=== PATIENT | female | born 1940 | race Caucasian/White ===

== ENCOUNTER 2023-06-16 15:52 | Outpatient (REF) | payer MEDICARE, OTHER, SELFPAY ==
[2023-06-16 16:22] LABS: SARS-CoV-2 Ag NEGATIVE (NEGATIVE)
[2023-06-17 16:10] LABS: SARS-CoV-2 NAA NOT DETECTED (NOT DETECTE)
== END 2023-06-16 15:53 | disposition home or self-care (01) ==
LOC: LAB 15:52
PROVIDERS: PCP Internal Medicine; Visit Provider Internal Medicine
DX: Z20.822 Contact with and (suspected) exposure to COVID-19 (principal); R53.83 Other fatigue
CPT/HCPCS: 87635; 87811

== ENCOUNTER 2025-02-12 14:30 | Outpatient (OUT) | payer MEDICARE, OTHER, SELFPAY ==
--- OUTSIDE RECORDS SUMMARY | 2025-01-30 10:00 | XMS_ITS | Encounter Summary ---
Author Organization [facility] Address [address] [place] [address] Care Team Providers Care Tree Pruner Name Role Phone Alexandro Mendez Primary Care Provider [phone] Reason for Visit * Reason Comments Follow-up Encounter Details Date Type Department Care Team (Late st Contact Info) Description 01/30/2025 10:00 AM EDT Office Visit [facility] [address] [place] [phone] Cheko Lackey, [address] [place] [address] Presence of artificial knee joint, right (Primary Dx) Social History Tobacco Use Types Packs/Day Years Used Date Smoking Tobacco: Never Smokeless Tobacco: Never Alcohol Use Standard Drinks/Week Comments Never 0 (1 standard drink = 0.6 oz pure alcohol) Caffeine intake: more than 4 cups per day decaf coffee Comments No Sex and Gender Information Value Date Recorded Sex Assigned at Not on file Legal Sex Female 7:24 PM EDT Gender Identity Not on file Sexual Orientation Not on file documented as of this encounter Last Filed Vital Signs Vital Sign Reading Time Taken Comments Blood Pressure - - Pulse - - Temperature - - Respiratory Rate - - Oxygen Saturation - - Inhaled Oxygen Concentration - - Weight 69.4 kg (153 lb) 01/30/2025 10:53 AM EDT Height 160 cm (5' 3 ) 01/30/2025 10:53 AM EDT Body Mass Index 27.1 01/30/2025 10:53 AM EDT documented in this encounter Progress Notes * Cheko Lackey, DO - 01/30/2025 10:00 AM EDT Images from the original note were not included. @BRE@ Veronika Briseida Douglas is a 84 y.o. female who presents for Follow-up of the Right Knee HPI: History of Present Illness The patient is an 84-year-old female who presents today for follow-up on her right knee. She has a history of a right total knee arthroplasty on 07/07/2023. She reports that her knee is in good condition and she is able to kneel on it. However, she suspects the development of cellulitis in her leg over the past few days. The condition has not worsened, but she experiences pain upon touch and a burning sensation. She also notes that her leg appears swollen. She has been elevating her feet during sleep. She has previously reported leg soreness to her doctor. Over the past few months, she has been on antibiotics for various conditions including a urinary tract infection and ear infections. She reports no instances of diarrhea while on these antibiotics. SUBJECTIVE: MEDICATIONS: Current Outpatient Medications Medication Instructions alendronate (FOSAMAX) 70 mg, Oral, Every 7 days, Take in the morning with a full glass of water, che empty stomach, and do not take anything else by mouth or lie down for the next 30 min. calcium carbonate (Os-Juan) 1250 (500 Ca) MG chewable tablet calcium-vitamin D3-vitamin K (Viactiv) 500-500-40 MG-UNT-MCG chewable tablet 1 tablet, Daily ferrous fumarate-vitamin C ER (Radha-Sequeles 65-25) 1 tablet, 3 times daily with meals fluticasone (Flonase) 50 MCG/ACT nasal spray 1 spray, Each Nostril, Daily, Shake gently. Before first use, prime pump. After use, clean tip and replace cap. MULTIPLE VITAMIN PO pravastatin (PRAVACHOL) 20 mg, Daily sulfamethoxazole-trimethoprim (Bactrim DS) 800-160 MG per tablet 1 tablet, Oral, 2 times daily withmeals ALLERGIES: Allergies Allergen Reactions Cortisone Unknown Prednisone Rash and Unknown Triamcinolone Acetonide Rash SURGICAL HISTORY: Past Surgical History: Procedure Laterality Date BREAST LUMPECTOMY Left COLONOSCOPY x2 COLONOSCOPY 03/2021 DILATION AND CURETTAGE [place] TONSILLECTOMY & ADENOIDECTOMY AGE 10/> TOTAL KNEE ARTHROPLASTY Right 07/07/2023 Dr. Cheko Lackey [place] [facility] [place] FAMILY HISTORY: Family History Problem Relation Name Age of Onset Rectal cancer Mother Uterine cancer Sister Prostate cancer Other SOCIAL HISTORY: Social History Tobacco Use Smoking status: Never Smokeless tobacco: Never Vaping Use Vaping status: Never Used Substance Use Topics Alcohol use: Never Comment: Caffeine intake: more than 4 cups per day decaf coffee Drug use: Never Depression: Not on file REVIEW OF SYMPTOMS: Review of Systems The review of systems, history and current medications list are all reviewed today. OBJECTIVE: Visit Vitals Ht 5' 3 Wt 153 lb LMP (LMP Unknown) BMI 27.10 kg/m?? OB Status Postmenopausal Smoking Status Never BSA 1.76 m?? Physical Exam Alert and oriented, no acute distress. Mood and affect are appropriate. Ambulating independently. Gait is nonantalgic. Pitting edema at both legs, slight erythema lower aspect right leg. Right knee: healed incision. Full extension. No effusion. Knee flexion is to 115 degrees. No varus or valgus instability is observed. Patella is tracking appropriately. Knee extension and flexion strength is 5 out of 5. Ortho Exam Results Three views, bilateral PA weight-bearing/sunrise/lateral right knee, taken today and saved to the permanent medical record are reviewed. Prosthesis is unchanged in position and alignment. No signs ofprosthetic wear or loosening. No periprosthetic fractures. ASSESSMENT AND PLAN: I reviewed the history, physical exam, diagnostic studies, and diagnosis with the patient. Assessment & Plan 1. Right total knee arthroplasty status I reminded the patient of the need for lifelong prophylactic antibiotics prior to any dental procedures. 2. Suspected developing leg cellulitis: Bactrim 800 mg/160 mg twice a day for one week has been prescribed and sent to the pharmacy. If there is no improvement, she should consult with her PCP Dr. Mendez. Further evaluation of her circulation may be necessary, and a diuretic might be considered to reduce fluid retention. She has been on multiple antibiotics recently for urinary tract and ear infections, which raises the possibility that her symptoms may be related to circulation rather than cellulitis. She should monitor for any side effects such as diarrhea or yeast infections, which can occur with antibiotic use. Follow up prn. A total of 20 to 29 minutes was spent on this patient encounter which included chart review, check in, nurse triage, history taking, physical examination, diagnostic study review, patient counseling and discussion, entering information into the patient's medical record, and coordinating patient care Diagnoses and all orders for this visit: Presence of artificial knee joint, right - XR knee 3 views right - sulfamethoxazole-trimethoprim (Bactrim DS) 800-160 MG per tablet; Take 1 tablet by mouth in the morning and 1 tablet in the evening. Take with meals. Do all this for 7 days. Cheko Lackey D.O. Attestation This note was created using voice recognition through [employer]. documented in this encounter Plan of Treatment Upcoming Encounters Date Type Department Care Team (Late st Contact Info) Description 03/19/2025 9:20 AM EDT Office Visit [facility] [address] [place] [phone] Yanique Sidhu APRN-DEBUG TECHNICIAN [address] [place] [address] 04/18/2025 10:15 AM EDT Office Visit [facility] [address] [place] [phone] Morgan Mishra MD [address] [place] [address] documented as of this encounter Procedures Procedure Name Priority Date/Time Associated Diagnosis Comments XR KNEE 3 VIEWS RIGHT Routine 01/30/2025 10:46 AM EDT Presence of artificial knee joint, right documented in this encounter Results * XR knee 3 views right (01/30/2025 10:46 AM EDT) Anatomical Region Laterality Modality Lower Extremities, Knee Right [facility] Narrative 01/31/2025 7:59 PM EDT Imaging Result: Three views, bilateral PA weight-bearing/sunrise/lateral right knee, taken today and saved to the permanent medical record are reviewed. Prosthesis is unchanged in position and alignment. No signs of prosthetic wear or loosening. No periprosthetic fractures. Cheko Lackey DO IMG XR PROCEDURES Final Result documented in this encounter Visit Diagnoses Diagnosis Presence of artificial knee joint, right- Primary documented in this encounter Care Teams Tree Pruner Relationship Specialty Start Date End Date Alexandro Mendez DO PCP - General Internal Medicine 03/15/23 documented as of this encounter
--- OUTSIDE RECORDS SUMMARY | 2025-01-30 10:50 | XMS_ITS | Encounter Summary ---
Author Organization [facility] Address [address] [address] Care Team Providers Care Scrap Materials Buyer Name Role Phone Alexandro Mendez DO Primary Care Provider [phone] Encounter Details Date Type Department Care Team (Late st Contact Info) Description 01/30/2025 10:50 AM EDT Ancillary Procedure [facility] [address] [place] [address] Social History Tobacco Use Types Packs/Day Years [...] on file documented as of this encounter Plan of Treatment Upcoming Encounters Date Type Department Care Team (Late st Contact Info) Description 03/19/2025 9:20 AM EDT Office Visit [facility] [address] [place] [address] Yanique Sidhu, SUPERINTENDENT PIER-BIOMASS PLANT MANAGER [address] [place] [address] 04/18/2025 10:15 AM EDT Office Visit [facility] [address] [place] [address] Morgan Mishra MD [address] [place] [address] documented as of this encounter Procedures Procedure Name Priority Date/Time Associated Diagnosis Comments XR KNEE 3 VIEWS RIGHT Routine 01/30/2025 10:46 AM EDT Presence of artificial knee joint, right documented in this encounter Results * XR knee 3 views right (01/30/2025 10:46 AM EDT) Anatomical Region Laterality Modality Lower Extremities, Knee Right [facility] Imaging Narrative 01/31/2025 7:59 PM EDT Imaging Result: Three views, bilateral PA weight-bearing/sunrise/lateral right knee, taken today and saved to the permanent medical record are reviewed. Prosthesis is unchanged in position and alignment. No signs of prosthetic wear or loosening. No periprosthetic fractures. Cheko Lackey DO IMG XR PROCEDURES Final Result documented in this encounter Visit Diagnoses Not on filedocumented in this encounter Care Teams Scrap Materials Buyer Relationship Specialty Start Date End Date Alexandro Mendez DO PCP - General Internal Medicine 03/15/23 documented as of this encounter
--- OUTSIDE RECORDS SUMMARY | 2025-02-12 14:36 | XMS_ITS | Encounter Summary ---
Author Organization [facility] Address [address] [place] [address] Care Team Providers Care Building Construction Superintendent Name Role Phone Alexandro Mendez Primary Care Provider Encounter Details Date Type Department Care Team (Late st Contact Info) Description 04/22/2023 Orders Only [facility] [address] [address] Cheko Lackey DO [address] [place], [place] [id number] Primary osteoarthritis of right knee (Primary Dx) Social History Tobacco Use Types Packs/Day Years Used Date Smoking Tobacco: Never Smokeless Tobacco: Never Alcohol Use Standard Drinks/Week Comments Never 0 (1 standard drink = 0.6 oz pure alcohol) Caffeine intake: more than 4 cups per day decaf coffee Comments Unknown Sex and Gender Information Value Date Recorded [...] Dermatology [address] [place] [phone] Yanique Sidhu, PROFESSOR OF BIOLOGICAL SCIENCES-SURGICAL TECHNICIAN [address] [place] [address] 04/18/2025 10:15 AM EDT Office Visit [facility] [address] [place] [address] Morgan Mishra MD [address] [place] [address] documented as of this encounter Visit Diagnoses Diagnosis Primary osteoarthritis of right knee- Primary documented in this encounter Care Teams Building Construction Superintendent Relationship Specialty Start Date End Date Alexandro Mendez DO PCP - General Internal Medicine 03/15/23 documented as of this encounter
--- OUTSIDE RECORDS SUMMARY | 2025-02-12 14:36 | XMS_ITS | Encounter Summary ---
Author Organization [facility] Address [address] [place] [address] Care Team Providers Care Hand Paint Mixer Name Role Phone Alexandro Mendez DO Primary Care Provider [phone] Encounter Details Date Type Department Care Team (Late st Contact Info) Description 05/03/2023 Clinisync Result Encounter [facility] External Department Unsolicited Cheko Lackey DO [address] [place] [address] Social History Tobacco Use Types Packs/Day Years [...] Dermatology [address] [place] [phone] Yanique Sidhu APRN-FISCAL ACCOUNTANT [address] [place] [address] 04/18/2025 10:15 AM EDT Office Visit [facility] [address] [place] [address] Morgan Mishra MD [address] [place] [address] documented as of this encounter Procedures Procedure Name Priority Date/Time Associated Diagnosis Comments CT LOWER EXTREMITY W/O CONTRAST RIGHT 05/03/2023 9:37 AM EDT documented in this encounter Results * CT LOWER EXTREMITY W/O CONTRAST RIGHT (05/03/2023 9:37 AM EDT) Anatomical Region Laterality Modality Other 05/03/2023 9:37 AM EDT Narrative 05/04/2023 8:33 AM EDT Exam Date/Time: 05/03/2023 09:45 EDT Reason for Exam: OA RIGHT KNEE Report IMPRESSION: CT FOR KNEE PROSTHESIS CREATION. 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 EXAM: CT Lower Extremity w/o Contrast Right DATE: 05/03/2023 9:37 AM CLINICAL HISTORY: OA RIGHT KNEE. COMPARISON: None available. TECHNIQUE: Spiral unenhanced imaging was obtained of the right lower extremity for prosthesis creation, using Marv protocol. All CT scans at this facility use dose modulation, iterative reconstruction, and/or weight based dosing when appropriate to reduce radiation dose to as low as reasonably achievable. FINDINGS: Moderately extensive osteoarthritic changes are present in the, predominantly medial compartment. A moderate-sized low density joint effusion and 2 to 3 cm Houston's cyst are present. There is no fracture, dislocation, worrisome bone destruction, radiodense foreign bodies, or other findings of concern identified. Additional imaging of the remaining colon and hip are noncontributory Ordering Provider: Cheko Lackey FINAL REPORT Dictated: 05/04/2023 8:30 am Cameron Abbott MD Signed (Electronic Signature): 05/04/2023 8:30 am Signed by: Cameron Abbott MD Transcribed by: JOSE ARMANDO Technologist: MAXWELL Procedure Note Radiology, Radiologist, - 05/04/2023 Exam Date/Time: 05/03/2023 09:45 EDT Reason for Exam: OA RIGHT KNEE Report IMPRESSION: CT FOR KNEE PROSTHESIS CREATION. 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 EXAM: CT Lower Extremity w/o Contrast Right DATE: 05/03/2023 9:37 AM CLINICAL HISTORY: OA RIGHT KNEE. COMPARISON: None available. TECHNIQUE: Spiral unenhanced imaging was obtained of the right lowerextremity for prosthesis creation, using Marv protocol. All CT scans at this facility use dose modulation, iterativereconstruction, and/or weight based dosing when appropriate to reduce radiation dose to as low asreasonably achievable. FINDINGS: Moderately extensive osteoarthritic changes are present in the,predominantly medial compartment. A moderate-sized low density joint effusion and 2 to 3 cmBaker's cyst are present. There is no fracture, dislocation, worrisome bone destruction, radiodenseforeign bodies, or other findings of concern identified. Additional imaging of the remaining colon and hip are noncontributory Ordering Provider: Cheko Lackey FINAL REPORT Dictated: 05/04/2023 8:30 am Cameron Abbott MD Signed (Electronic Signature): 05/04/2023 8:30 am Signed by: Cameron Abbott MD Transcribed by: JOSE ARMANDO Technologist: MAXWELL Cheko Lackey DO [facility] Final Result documented in this encounter Visit Diagnoses Not on filedocumented in this encounter Care Teams Hand Paint Mixer Relationship Specialty Start Date End Date Alexandro Mendez DO PCP - General Internal Medicine 03/15/23 documented as of this encounter
--- OUTSIDE RECORDS SUMMARY | 2025-02-12 14:36 | XMS_ITS | Encounter Summary ---
Author Organization [facility] Address [address] [facility] [place] [address] Care Team Providers Care Complaint Operator Name Role Phone Alexandro Mendez DO Primary Care Provider [phone] Encounter Details Date Type Department Care Team (Late st Contact Info) Description 03/15/2023 Abstract [facility] [address] [place] [address] Morgan Mishra MD [address] [place] [address] Social History Tobacco Use Types Packs/Day Years [...] Office Visit [facility] [address] [place] [address] Yanique Sidhu APRN-AMBIKA [address] [place] [address] 04/18/2025 10:15 AM EDT Office Visit [facility] [place] [facility] [address] [place] [address] Morgan Mishra MD [address] [place] [address] documented as of this encounter Visit Diagnoses Not on filedocumented in this encounter Care Teams Complaint Operator Relationship Specialty Start Date End Date Alexandro Mendez DO PCP - General Internal Medicine 03/15/23 documented as of this encounter
--- OUTSIDE RECORDS SUMMARY | 2025-02-12 14:36 | XMS_ITS | Clinical Summary ---
Author Organization [facility] Address [address] [place] [address] Phone Care Team Providers Care Can Labeler Name Role Phone Alexandro Mendez Primary Care Provider [phone] Social History Tobacco Use Types Packs/Day Years Used Date Smoking Tobacco: Never Assessed Comments Unknown Sex and Gender Information Value Date Recorded Sex Assigned at Not on file Legal Sex Female 11:03 AM EST Gender Identity Not on file Sexual Orientation Not on file Plan of Treatment Health Maintenance Due Date Last Done Comments Lipid Panel 1940 Medicare Annual Wellness Vis it (AWV) 1940 DTaP/Tdap/Td Vaccines (1 - Tdap) 1960 Pneumococcal Vaccine (1 of 1 - PCV) 1988 Zoster Vaccines (1 of 2) 1988 Bone Density Scan 11/26/2003 RSV High Risk: (Elderly (60+ ) or Population) (1 - 1-dose 75+ series) 2013 COVID-19 Vaccine ( - 2023-2 5 season) 2024 Influenza Vaccine (#1) 2025 HIB Vaccines Aged Out No longer eligi ble based on patient's age to complete this topic HPV Vaccines Aged Out No longer eligi ble based on patient's age to complete this topic Hepatitis A Vaccines Aged Out No long er eligible based on patient's age to complete this topic Hepatitis B Vaccines Aged Out No long er eligible based on patient's age to complete this topic IPV Vaccines Aged Out No longer eligi ble based on patient's age to complete this topic Meningococcal Vaccine Aged Out No linda mike eligible based on patient's age to complete this topic Rotavirus Vaccines Aged Out No longer eligible based on patient's age to complete this topic Insurance MEDICARE PART A AND B Care Teams Can Labeler Relationship Specialty Start Date End Date Alexandro Mendez DO PCP - General 02/02/18
--- OUTSIDE RECORDS SUMMARY | 2025-02-12 14:36 | XMS_ITS | Encounter Summary ---
Author Organization [facility] Address [address] [place] [address] Care Team Providers Care Supervisor Farm Equipment Maintenance Name Role Phone Alexandro Mendez Primary Care Provider [phone] Encounter Details Date Type Department Care Team (Late st Contact Info) Description 04/20/2023 Abstract [facility] [address] [place] [phone] Cheko Lackey DO [address] [place] [address] Social History Tobacco Use Types Packs/Day Years [...] Dermatology [address] [place] [phone] Yanique Sidhu APRN-SUPERVISOR FIBERGLASS BOAT ASSEMBLY [address] [place] [address] 04/18/2025 10:15 AM EDT Office Visit [facility] [address] [place] [address] Morgan Mishra MD [address] [place] [address] documented as of this encounter Visit Diagnoses Not on filedocumented in this encounter Care Teams Supervisor Farm Equipment Maintenance Relationship Specialty Start Date End Date Alexandro Mendez DO PCP - General Internal Medicine 03/15/23 documented as of this encounter
--- OUTSIDE RECORDS SUMMARY | 2025-02-12 14:37 | XMS_ITS | Clinical Summary ---
Author Organization [facility] Address [address] [place] [address] Care Team Providers Care Grades 9 12 Tutor Name Role Phone Alexandro Mendez Chante DUMONT Primary Care Provider [phone] Allergies Active Allergy Reactions Criticality Noted Date Comments Prednisone Rash 05/13/2012 Medications CALCIUM CARBONATE/VITAMI N D3 (CALCIUM + D ORAL) Take 1 tablet by mouth once daily. Active MULTI-VITAMIN ORAL Take 1 tablet by mouth once daily. Active pravastatin 20 mg tablet Take 20 mg by mouth once daily. Active Active Problems Problem Noted Date Diagnosed Date Bilateral temporomandibular joint pain 8 Bilateral impacted cerumen 03/22/2018 Malignant neoplasm of upper- outer quadrant of left breast in female, estrogen receptor positive 10/22/2017 Resolved Problems Problem Noted Date Diagnosed Date Resolved Date Breast CA 05/09/2012 10/22/2017 Overview (05/09/2012): Left; Stage I, ER+ Family History Medical History Relation Comments Breast Cancer Maternal Grandmother Diabetes Maternal Grandmother Cancer Mother Cancer Sister 4 Relation Status Comments Father Maternal Grandmother Mother Sister 1 Alive Sister 2 Alive Sister 3 Alive Sister 4 Social History Tobacco Use Types Packs/Day Years Used Date Smoking Tobacco: Never Smokeless Tobacco: Never Alcohol Use Standard Drinks/Week Comments No 0 (1 standard drink = 0.6 oz pur e alcohol) Area Deprivation Index Answer Date Reji rded National Score (1-100), lower number is lower ri sk Not on file 06/12/2020 State Score (1-10), lower number is lower risk N ot on file 06/12/2020 Data from: https://www.neighborhoodatlas.medicine.[facility]/. Last address used for calculation Not on file 06/12/2020 Comments No Sex and Gender Information Value Date Recorded Sex Assigned at Not on file Legal Sex Female 10:12 AM EST Gender Identity Not on file Sexual Orientation Not on file Last Filed Vital Signs Vital Sign Reading Time Taken Comments Blood Pressure 125/69 10/22/2017 11:44 AM EDT Pulse 74 10/22/2017 11:44 AM EDT Temperature 36.8 C (98.2 F) 03/22/2018 8:40 AM EDT Respiratory Rate 18 10/22/2017 11:44 AM EDT Oxygen Saturation 99% 10/22/2017 11:44 AM EDT Inhaled Oxygen Concentration - - Weight 78.7 kg (173 lb 9.6 oz) 10/22/2017 11:44 AM EDT Height 161.3 cm (5' 3.5 ) 10/22/2017 11:44 AM ED T Body Mass Index 30.27 10/22/2017 11:44 AM EDT Plan of Treatment Health Maintenance Due Date Last Done Comments Anxiety Screening 1958 Depression Screening 1958 DTaP,Tdap,Td Vaccine (1 - Tdap) 1957 Diabetes Screening 11/26/1983 Shingrix Vaccine (1 of 2) 1988 Bone Density Screening 11/26/2003 RSV Vaccine (1 - 1-dose 75+ series) 2013 Pneumococcal Vaccine: 50+ (2 of 2 - PPSV23) 05/05/2018 05/05/2017 Advance Directive Discussion 07/05/2024 Influenza Vaccine (#1) 2025 [place] [address] [facility] Care Teams Grades 9 12 Tutor Relationship Specialty Start Date End Date Alexandro Mendez DO PCP - General Internal Medicine 05/13/12
--- OUTSIDE RECORDS SUMMARY | 2025-02-12 14:37 | XMS_ITS | Encounter Summary ---
Author Organization [facility] Address [address] [place] [address] Care Team Providers Care Clinical Informaticist Name Role Phone Alexandro Mendez Primary Care Provider [phone] Encounter Details Date Type Department Care Team (Late st Contact Info) Description 07/09/2023 Abstract [facility] [address] [place] [phone] Cheko Lackey DO [address] [place] [address] Social History Tobacco Use Types Packs/Day Years [...] [address] [place] [phone] Yanique Sidhu APRN-HOUSE REPAIRER [address] [place] [address] 04/18/2025 10:15 AM EDT Office Visit [facility] [address] [place] [address] Morgan Mishra MD [address] [place] [address] documented as of this encounter Visit Diagnoses Not on filedocumented in this encounter Care Teams Clinical Informaticist Relationship Specialty Start Date End Date Alexandro Mendez DO PCP - General Internal Medicine 03/15/23 documented as of this encounter
--- OUTSIDE RECORDS SUMMARY | 2025-02-12 14:37 | XMS_ITS | Encounter Summary ---
Author Organization [facility] Address [address] [place] [address] Care Team Providers Care Green Chain Puller Name Role Phone Alexandro Mendez Primary Care Provider [phone] Encounter Details Date Type Department Care Team (Late st Contact Info) Description 11/27/2022 Abstract [facility] [address] [place] [phone] Cheko Lackey DO [address] [place] [address] Social History Tobacco Use Types Packs/Day Years Used Date Smoking Tobacco: Never Assessed Alcohol Use Standard Drinks/Week Comments Not Asked 0 (1 standard drink = 0.6 oz [...] [address] [place] [phone] Yanique Sidhu APRN-DESIGN STUDIO CONSULTANT [address] [place] [address] 04/18/2025 10:15 AM EDT Office Visit [facility] [place] [facility] [address] [place] [address] Morgan Mishra MD [address] [place] [address] documented as of this encounter Visit Diagnoses Not on filedocumented in this encounter Care Teams Green Chain Puller Relationship Specialty Start Date End Date Alexandro Mendez DO PCP - General Internal Medicine 03/15/23 documented as of this encounter
--- OUTSIDE RECORDS SUMMARY | 2025-02-12 14:37 | XMS_ITS | Encounter Summary ---
Author Organization [facility] Address [address] [place] [address] Care Team Providers Care Automatic Toe Laster Name Role Phone Alexandro Mendez DO Primary Care Provider [phone] Encounter Details Date Type Department Care Team (Late st Contact Info) Description 07/31/2023 Abstract [facility] [address] [place] [address] Angela Choudhury, ROBIN [address] [place] [address] Social History Tobacco Use Types Packs/Day Years [...] Dermatology [address] [place] [address] Yanique Sidhu, NADEEM-INFECTION CONTROL COORDINATOR [address] [place] [address] 04/18/2025 10:15 AM EDT Office Visit [facility] [address] [place] [address] Morgan Mishra MD [address] [facility] [address] [place] [address] documented as of this encounter Visit Diagnoses Not on filedocumented in this encounter Care Teams Automatic Toe Laster Relationship Specialty Start Date End Date Alexandro Mendez DO PCP - General Internal Medicine 03/15/23 documented as of this encounter
--- OUTSIDE RECORDS SUMMARY | 2025-02-12 14:37 | XMS_ITS | Clinical Summary ---
Author Organization [facility] Address [address] [place] [address] Care Team Providers Care Save All Operator Name Role Phone Unavailable Primary Care Provider Unavailabl e Social History Tobacco Use Types Packs/Day Years Used Date Smoking Tobacco: Never Assessed [place] Safety & Environment Answer Date Rec orded Fear of Current or Ex-Partner Not on file Emotionally Abused Not on file 08/26/2023 Physically Abused Not on file 08/26/2023 Sexually Abused Not on file 08/26/2023 Physically or Sexually Abused Not on file Comments Unknown Sex and Gender Information Value Date Recorded Sex Assigned at Not on file Legal Sex Female 12:05 AM EDT Gender Identity Not on file Sexual Orientation Not on file Plan of Treatment Not on file
--- OUTSIDE RECORDS SUMMARY | 2025-02-12 14:37 | XMS_ITS | Clinical Summary ---
Author Organization [facility] Address [address] [place] [address] Care Team Providers Care Network Diagnostic Support Specialist Name Role Phone Alexandro Mendez DO Primary Care Provider [phone] Allergies Active Allergy Reactions Criticality Noted Date Comments Cortisone Unknown 12/01/2022 Prednisone Rash,Unknown Low 05/13/2012 Triamcinolone Acetonide Rash Low 12/01/2022 Medications calcium-vitamin D3-vitamin K (Viactiv) 500-500-40 MG-UNT-MCG chewable tablet Chew 1 tablet Daily Active pravastatin (Pravachol) 20 MG tablet Take 20 mg by mouth Daily Active MULTIPLE VITAMIN PO Active calcium carbonate (Os-Juan) 1250 (500 Ca) MG chewable tablet 4 Active ferrous fumarate-vitami n C ER (Radha-Sequeles 65-25) Take 1 tablet by mouth in the morning and 1 tablet at noon and 1 tablet in the evening. Take with meals. Do not crush, chew, or split. Active alendronate (Fosamax) 70 MG tabletIndicatio ns:Osteoporosis , post-menopausal Take 1 tablet (70 mg) by mouth every 7 (seven) days Take in the morning with a full glass of water, on an empty stomach, and do not take anything else by mouth or lie down for the next 30 min. 4 tablet 11 5 08/03/19 26 Active fluticasone (Flonase) 50 MCG/ACT nasal sprayIndication s:Left ear pain Administer 1 spray into each nostril Daily Shake gently. Before first use, prime pump. After use, clean tip and replace cap. 16 g Active sulfamethoxazol e-trimethoprim (Bactrim DS) 800-160 MG per tabletIndicatio ns:Presence of artificial knee joint, right Take 1 tablet by mouth in the morning and 1 tablet in the evening. Take with meals. Do all this for 7 days. 20 tablet 02/07/20 25 Active Problems Problem Noted Date Diagnosed Date Age related osteoporosis 11/28/2022 Primary osteoarthritis of right knee 11/28/2022 Encounters Date Type Department Care Team Description 01/30/2025 10:50 AM EDT Ancillary Procedure [facility] [address] [place] [address] 01/30/2025 10:00 AM EDT Office Visit [facility] [place] [facility] [address] [place] [address] Cheko Lackey DO Presence of artificial knee joint, right (Primary Dx) 01/30/2025 Bamboo flowsheet [facility] [place] [facility] [address] [place] [address] Cheko Lackey DO 01/30/2025 Travel 01/16/2025 4:25 PM EDT Office Visit [facility] [address] [place] [address] Angela Choudhury, MUNITIONS HANDLER Pressure sensation in both ears (Primary Dx); Bilateral impacted cerumen 01/16/2025 Travel from Last 3 Months Immunizations Immunization Administration Dates Next Due Moderna SARS-CoV-2 50mcg/0.5mL Booster 3 Pneumococcal Conjugate PCV 13 04/10/2016 Zoster, live 03/05/2015 Family History Medical History Relation Name Comments Rectal cancer Mother Prostate cancer Other Uterine cancer Sister Relation Name Status Comments Mother Other spouse Sister Social History Tobacco Use Types Packs/Day Years Used Date Smoking Tobacco: Never Smokeless Tobacco: Never Tobacco Cessation:Counseling Given: Not Answered Alcohol Use Standard Drinks/Week Comments Never 0 [...] Sign Reading Time Taken Comments Blood Pressure 134/62 01/16/2025 4:31 PM EDT Pulse 66 01/16/2025 4:31 PM EDT Temperature 36.4 C (97.6 F) 01/16/2025 4:31 PM EDT Respiratory Rate 20 01/16/2025 4:31 PM EDT Oxygen Saturation 96% 01/16/2025 4:31 PM EDT Inhaled Oxygen Concentration - - Weight 69.4 kg (153 lb) 01/30/2025 10:53 AM EDT Height 160 cm (5' 3 ) 01/30/2025 10:53 AM EDT Body Mass Index 27.1 01/30/2025 10:53 AM EDT Plan of Treatment Upcoming Encounters Date Type Department Care Team (Late st Contact Info) Description 03/19/2025 9:20 AM EDT Office Visit [facility] [address] [place] [address] Yanique Sidhu APRN-SUBSTATION MANAGER [address] [place] [address] 04/18/2025 10:15 AM EDT Office Visit [facility] [address] [place] [address] Morgan Mishra MD [address] [place] [address] Health Maintenance Due Date Last Done Comments Pneumococcal Vaccine: 65+ Ye ars (2 of 2 - PPSV23) 04/10/2017 04/10/2016 Influenza Vaccine (#1) 2025 4, 04/08/2022, 04/19/2018, Additional history exists Procedures Procedure Name Priority Date/Time Associated Diagnosis Comments XR KNEE 3 VIEWS RIGHT Routine 01/30/2025 10:46 AM EDT Presence of artificial knee joint, right from Last 3 Months Results * XR knee 3 views right (01/30/2025 10:46 AM EDT) Anatomical Region Laterality Modality Lower Extremities, Knee Right [facility] Narrative 01/31/2025 7:59 PM EDT Imaging Result: Three views, bilateral PA weight-bearing/sunrise/lateral right knee, taken today and saved to the permanent medical record are reviewed. Prosthesis is unchanged in position and alignment. No signs of prosthetic wear or loosening. No periprosthetic fractures. Cheko Lackey DO IMG XR PROCEDURES Final Result from Last 3 Months Insurance MEDICARE [facility] Care Teams Network Diagnostic Support Specialist Relationship Specialty Start Date End Date Alexandro Mendez DO PCP - General Internal Medicine 03/15/23
--- OUTSIDE RECORDS SUMMARY | 2025-02-12 14:37 | XMS_ITS | Encounter Summary ---
Author Organization [facility] Address [address] [place] [address] Care Team Providers Care Business Analytics Intern Name Role Phone Alexandro Mendez Primary Care Provider [phone] Encounter Details Date Type Department Care Team (Late st Contact Info) Description 01/30/2025 Bamboo flowsheet [facility] [address] [place] [address] Cheko Lackey, [address] [place] [address] Social History Tobacco Use Types Packs/Day Years [...] Office Visit [facility] [address] [place] [address] Yanique Sidhu, AIR TESTER-DELICATESSEN STORE MANAGER [address] [place], [place] [address] 04/18/2025 10:15 AM EDT Office Visit [facility] [place] [facility] [address] [place] [address] Morgan Mishra MD [address] [place] [address] documented as of this encounter Visit Diagnoses Not on filedocumented in this encounter Care Teams Business Analytics Intern Relationship Specialty Start Date End Date Alexandro Mendez DO PCP - General Internal Medicine 03/15/23 documented as of this encounter
--- OUTSIDE RECORDS SUMMARY | 2025-02-12 14:37 | XMS_ITS | Encounter Summary ---
Author Organization [facility] Address [address] [place] [address] Care Team Providers Care Ux Research Associate Name Role Phone Alexandro Mendez DO Primary Care Provider Encounter Details Date Type Department Care Team (Latest Contact Info) Description 01/30/2025 Travel Social History Tobacco Use Types Packs/Day Years [...] [address] [place] [address] Yanique Sidhu, CANDY DIPPER HAND-J2EE ARCHITECT [address] [place] [address] 04/18/2025 10:15 AM EDT Office Visit [facility] [address] [place] [address] Morgan Mishra MD [address] [place] [address] documented as of this encounter Visit Diagnoses Not on filedocumented in this encounter Care Teams Ux Research Associate Relationship Specialty Start Date End Date Alexandro Mendez DO PCP - General Internal Medicine 03/15/23 documented as of this encounter
--- OUTSIDE RECORDS SUMMARY | 2025-02-12 14:37 | XMS_ITS | Encounter Summary ---
Author Organization [facility] Address [address] [place] [address] Care Team Providers Care Patternmaker Bench Name Role Phone Alexandro Mendez DO Primary Care Provider [phone] Encounter Details Date Type Department Care Team (Late st Contact Info) Description 07/07/2023 Clinisync Result Encounter [facility] External Department Unsolicited Cheko Lackey DO [address] [place] [address] Social History Tobacco Use Types Packs/Day Years [...] Dermatology [address] [place] [address] Yanique Sidhu APRN-SALES SERVICE PROMOTER [address] [place], [place] [address] 04/18/2025 10:15 AM EDT Office Visit [facility] [address] [place] [address] Morgan Mishra MD [address] [facility] [address] [place] [address] documented as of this encounter Procedures Procedure Name Priority Date/Time Associated Diagnosis Comments XR KNEE 1 OR 2 VIEWS RIGHT 07/07/2023 9:25 AM EST documented in this encounter Results * XR KNEE 1 OR 2 VIEWS RIGHT (07/07/2023 9:25 AM EST) Anatomical Region Laterality Modality Other 07/07/2023 9:25 AM EST Narrative 07/07/2023 1:03 PM EST Exam Date/Time: 07/07/2023 09:38 EST Reason for Exam: Post-op evaluation;Other (please specify) Report IMPRESSION: NEGATIVE POSTOPERATIVE RIGHT KNEE. CLINICAL HISTORY: Post-op evaluation COMPARISON: April 20, 2023. FINDINGS: 2 views of the right knee shows interval placement of bipolar noncemented right knee replacement. No fracture. No abnormal lucency bone prosthetic interface. Ordering Provider: Cheko Lackey FINAL REPORT Dictated: 07/07/2023 1:00 pm Alexandro Hurst MD Signed (Electronic Signature): 07/07/2023 1:00 pm Signed by: Alexandro Hurst MD Transcribed by: JOSE ARMANDO Technologist: DANNA Technical Comments Radiation Dose: Ka,r in mGy = . DAP = . Procedure Note Radiology, Radiologist, MD - 07/07/2023 Exam Date/Time: 07/07/2023 09:38 EST Reason for Exam: Post-op evaluation;Other (please specify) Report IMPRESSION: NEGATIVE POSTOPERATIVE RIGHT KNEE. CLINICAL HISTORY: Post-op evaluation COMPARISON: April 20, 2023. FINDINGS: 2 views of the right knee shows interval placement of bipolarnoncemented right knee replacement. No fracture. No abnormal lucency bone prostheticinterface. Ordering Provider: Cheko Lackey FINAL REPORT Dictated: 07/07/2023 1:00 pm SignAlexandro david MD Signed (Electronic Signature): 07/07/2023 1:00 pm Signed by: Alexandro Hurst MD Transcribed by: JOSE ARMANDO Technologist: DANNA Technical Comments Radiation Dose: Ka,r in mGy = . DAP = . us Cheko Lackey DO [facility] Final Result documented in this encounter Visit Diagnoses Not on filedocumented in this encounter Care Teams Patternmaker Bench Relationship Specialty Start Date End Date Alexandro Mendez DO PCP - General Internal Medicine 03/15/23 documented as of this encounter
== END 2025-02-12 14:31 | disposition home or self-care (01) ==
LOC: RAD 14:35
PROVIDERS: PCP Internal Medicine; Visit Provider Internal Medicine
DX: M79.661 Pain in right lower leg (principal); M79.89 Other specified soft tissue disorders
CPT/HCPCS: 93971

== ENCOUNTER 2025-02-14 10:49 | Outpatient (OUT) | payer MEDICARE, OTHER, SELFPAY ==
--- OUTSIDE RECORDS SUMMARY | 2025-02-12 10:22 | XMS_ITS | Continuity of Care Document ---
Author Organization [facility] Address [address] [place] [address] Phone Care Team Providers Care Hat Brusher Machine Name Role Phone Alexandro Mendez DO Primary Care Provider Lauren Ramos MD Attending Provider Alexandro Mendez DO Attending Provider Care Teams Patient Care Team Team Status: Active Member Role Status Dates Alexandro Mendez DO Primary Care Provider Active Visit Care Team Team Status: Inactive Member Role Status Dates Alexandro Mendez DO Primary Care Provider Active Start: January 19, 2025 End: January 19, 2025 Lauren Ramos MD Attending Provider Active St art: January 19, 2025 End: January 19, 2025 Patient Care Team Team Status: Inactive Member Role Status Dates Alexandro Mendez DO Primary Care Provider Active Start: February 12, 2025 End: February 12, 2025 Alexandro Mendez DO Attending Provider Active Sta rt: February 12, 2025 End: February 12, 2025 Chief Complaint and Reason for Visit Chief Complaint Admit Date UA:Burning/Frequency January 19, 2025 2:2 9pm leg pain February 12, 2025 1: 46pm Reason for Visit Admit Date UTI (urinary tract infection) January 19, 2025 2:29pm Cellulitis of leg, right February 12 1:46pm Pain and swelling of right lower leg Feb us2024 1:46pm Varicose veins of both lower extremities February 12, 2025 1:46pm Hx of total knee arthroplasty February 1:46pm Allergies, Adverse Reactions, Alerts Allergen Type Severity Reaction Last Updated Verified Status prednisone Allergy Unknown Rash February 12, 2025 1:47pm Yes Active Social History Smoking Status Unknown if ever smoked Observation Status Observation Response Date of Response Legal Sex Female (finding) Sex Assigned At Female 1940 Problems Active Problems Medical Problem Onset Date Status UTI (urinary tract infection) Unknown Ac tive Cellulitis of leg, right Unknown Active Primary osteoarthritis of right knee Unknown Active H/O malignant neoplasm of breast Unknown Active Carotid artery stenosis Unknown Active Osteoarthritis of left hip Unknown Activ e Eosinophilia Unknown Active Hypercholesterolemia Unknown Active Overweight Unknown Active Cervical spondylosis Unknown Active Varicose veins of both lower extremities Unknown Active Pain and swelling of right lower leg Unknown Active Chronic venous insufficiency Unknown Act leeanna SNHL (sensorineural hearing loss) Unknown Active Medications Medication Status Dose Units Route Directions Qty Days St art Date Stop Date End Date Instructions Adherence Pravastatin 20 mg tablet Active 20 MG PO Every evening 2024 5:04pm Complies with drug therapy Alendronate 70 mg tablet Active MG PO October 05, 2024 12:00a m Complies with drug therapy Lidocaine 5 % adhesive patch,medic ated Active 2 PATCH TOPICA L Daily January 21, 2024 12:00a m leave on most painful area for up to 12 hrs Complies with drug therapy Sulfamethox azole-Trime thoprim 800-160 mg tablet Discont inued 1 TAB PO Twice daily January 19, 2025 12:00a m Augus t 2024 1:47p m Cephalexin 500 mg capsule Active 500 MG PO Three times daily 22 01February 12, 2025 12:00a m Complies with drug therapy Pravastatin 20 mg tablet Discont inued 20 MG PO Every evening September 28, 2023 12:00a m Julua ry 2024 5:04p m Calcium Carbonate (Calcium 500) 500 mg calcium (1,250 mg) tablet,chew able Active 500 MG PO Daily October 05, 2023 12:00a m Complies with drug therapy Neomycin-Po lymyxin-Hc 3.5-10,000- 1 mg/mL-unit/ mL-% drops,suspe nsion Active 4 DROPS OTIC Every 8 hours 04 10October 18, 2024 12:00a m Complies with drug therapy Cephalexin 500 mg capsule Discont inued 500 MG PO Three times daily 21 7 October 18, 2024 12:00a m November 06, 2024 8:55a m Immunizations Immunization Event Date Not Given Reason Dose Number Public Health Informatician Lot Number Vaccine Information Statement (VIS) Detail Administration Location Fluzone TIV High-Dose [id number] May 04, 2024 [id number] [facility] influenza, unspecified formulation April 14, 2023 Relevant Diagnostic Tests and/or Laboratory Data Laboratory Results Test Collection Date/Time Result Date/Time Result Interpretation Reference Range Result Comment Performing Site Urine Color January 19, 2025 2:35pm January 19, 2025 2:38pm yellow Urine Appearance January 19, 2025 2:35pm January 19, 2025 2:38pm cloudy Urine Specific [place] January 19, 2025 2:35pm January 19, 2025 2:38pm 1.020 Urine pH January 19, 2025 2:35pm January 19, 2025 2:38pm 5 Urine Leukocyte Esterase January 19, 2025 2:35pm January 19, 2025 2:38pm + Urine Nitrite January 19, 2025 2:35pm January 19, 2025 2:38pm Negative Urine Protein January 19, 2025 2:35pm January 19, 2025 2:38pm + Urine Glucose (UA) January 19, 2025 2:35pm January 19, 2025 2:38pm negative Urine Ketones January 19, 2025 2:35pm January 19, 2025 2:38pm ++ Urine Urobilinoge n January 19, 2025 2:35pm January 19, 2025 2:38pm 0.2 Urine Bilirubin January 19, 2025 2:35pm January 19, 2025 2:38pm negative Urine Occult Blood January 19, 2025 2:35pm January 19, 2025 2:38pm ++ Vital Signs Vital Reading Result Reference Range Collection Date/Time Height 65 [in_i] February 12 1:50pm Weight 70.30 kg February 12 1:50pm Heart Rate 53 /min 60-100 February 12 1:50pm Respiratory rate 12 /min 12-24 February 1:50pm BP Systolic 158 mm[Hg] 100-140 February 12 1:50pm BP Diastolic 75 mm[Hg] 60-100 February 12 1:50pm BMI (Body Mass Index) 25.7 kg/m2 February 12, 2025 1:50pm Advance Directives Advance Directive Response Recorded Date/ Time Advance Directives No March 12:08pm Insurance Providers Guarantor Briseida Peck Address [address] [address] Contact Info. Home Phone: Payer Policy Id Subscriber's Name Subscriber Id Effectiv e Date Expiration Date Medicare [id number] Briseida Peck [id number] [facility] [id number] Briseida Peck [id number] Encounters Encounter Location(s) Arrival/Admit Date Discharge/Depart Date Provider(s) Departed Physician/Prov ider Office Visit -[facility] January 19, 2025 2:29pm January 19, 2025 2:43pm Lauren Ramos MD Departed Physician/Prov ider Office Visit -[facility] February 12, 2025 1:46pm February 12, 2025 2:21pm Alexandro Mendez DO Recent Diagnosis Onset Date Admit Date UTI (urinary tract infection) Unknown Ju 2024 2:29pm Cellulitis of leg, right Unknown February 12, 2025 1:46pm Pain and swelling of right lower leg Unknown February 12, 2025 1:46pm Varicose veins of both lower extremities Unknown February 12, 2025 1:46pm Hx of total knee arthroplasty Unknown 2024 1:46pm Assessments Diagnosis Onset Date Resolution Status Admit Date UTI (urinary tract infection) acute January 19, 2025 2:29pm Cellulitis of leg, right acute February 12, 2025 1:46pm Pain and swelling of right lower leg acute February 12 1:46pm Varicose veins of both lower extremities acute February 12 1:46pm Hx of total knee arthroplasty noneac tive February 12, 2025 1:46pm Plan of Treatment Author Alexandro Mendez [facility] Authored February 12, 2025 2: 16pm Positive swelling, erythema and tenderness. Elevate, avoid salt and use compression Venous US to r/o DVT Refer to Vein Clinic for pain, swelling and erythema Failed to improve w/ Bactrim. Likely due to venous hypertension but will try Cephalexin Instructed to avoid salt and elevate Instructed to elevate, avoid salt and use compression stockings She states compression causes the proximal calf to be edematous and tender May contribute to RLE swelling. f/u Orthopedics Future Tests Future scheduled test information is unavailable Pending Tests Test Name Ordered Date Scheduled Date US venous duplex LE RT February 12, 2025 2:06pm Future Visits Future appointment information is unavailable Referrals to Other Providers Referral information is unavailable Future Procedures Future procedure information is unavailable Future Medications Future medication information is unavailable Patient Instructions Patient instructions are unavailable
--- OUTSIDE RECORDS SUMMARY | 2025-02-14 10:51 | XMS_ITS | Clinical Summary ---
Author Organization [facility] Address [address] [place] [address] Care Team Providers Care Equity Structurer Name Role Phone Alexandro Mendez Chante DUMONT Primary Care Provider [phone] Allergies Active Allergy Reactions Criticality Noted Date [...] N ot on file 06/12/2020 Data from: https://www.neighborhoodatlas.medicine.[facility]/. Last address used for calculation [...] 07/05/2024 Influenza Vaccine (#1) [address] [facility] Care Teams Equity Structurer Relationship Specialty Start Date End Date Alexandro Mendez DO PCP - General Internal Medicine 05/13/12
--- OUTSIDE RECORDS SUMMARY | 2025-02-14 10:51 | XMS_ITS | Clinical Summary ---
Author Organization [facility] Address [address] [place] [address] Phone Care Team Providers Care Deckhand Shrimp Boat Name Role Phone Alexandro Mendez Primary Care Provider [phone] Social History Tobacco Use Types Packs/Day Years [...] topic Meningococcal Vaccine Aged Out No linda miek eligible based on patient's age to complete this topic Rotavirus Vaccines Aged Out No longer eligible based on patient's age to complete this topic Insurance MEDICARE PART A AND B Care Teams Deckhand Shrimp Boat Relationship Specialty Start Date End Date Alexandro Mendez DO PCP - General 02/02/18
--- OUTSIDE RECORDS SUMMARY | 2025-02-14 10:51 | XMS_ITS | Encounter Summary ---
Author Organization [facility] Address [address] [place] [address] Care Team Providers Care Water Engineer Name Role Phone Alexandro Mendez DO Primary Care Provider [phone] Encounter Details Date Type Department Care Team (Late st Contact Info) Description 07/07/2023 Clinisync Result Encounter [facility] External Department Unsolicited Cheko Lackey DO [address] [place] [address] Social History Tobacco Use Types Packs/Day Years [...] Dermatology [address] [place] [phone] Yanique Sidhu APRN-STATION ENGINEER MAIN LINE [address] [place], [place] [id number] 04/18/2025 10:15 AM EDT Office Visit [facility] [address] [place] [address] Morgan Mishra MD [address] [facility] [address] [place] [address] documented as of this encounter Procedures Procedure [...] on filedocumented in this encounter Care Teams Water Engineer Relationship Specialty Start Date End Date Alexandro Mendez DO PCP - General Internal Medicine 03/15/23 documented as of this encounter
--- OUTSIDE RECORDS SUMMARY | 2025-02-14 10:51 | XMS_ITS | Clinical Summary ---
Author Organization [facility] Address [address] [place] [address] Care Team Providers Care Pierce And Shave Press Operator Name Role Phone Alexandro Mendez DO Primary Care Provider [phone] Allergies Active Allergy Reactions Criticality Noted Date [...] Description 01/30/2025 10:50 AM EDT Ancillary Procedure [facility] [address] [place] [address] 01/30/2025 10:00 AM EDT Office Visit [facility] [place] [facility] [address] [place] [address] Cheko Lackey DO Presence of artificial knee joint, right (Primary Dx) 01/30/2025 Bamboo flowsheet [facility] [place] [facility] [address] [place] [address] Cheko Lackey DO 01/30/2025 Travel 01/16/2025 4:25 PM EDT Office Visit [facility] [address] [place] [address] Angela Choudhury, MACHINE STONE POLISHER Pressure sensation in both ears (Primary Dx); [...] Dermatology [address] [place] [address] Yanique Sidhu APRN-GAS APPLIANCE ADJUSTER [address] [place] [address] 04/18/2025 10:15 AM EDT Office Visit [facility] [address] [place] [address] Morgan Mishra MD [address] [place] [address] Health Maintenance Due Date Last Done Comments [...] Laterality Modality Lower Extremities, Knee [facility] Narrative 01/31/2025 7:59 PM EDT Imaging Result: Three views, bilateral PA weight-bearing/sunrise/lateral right knee, taken today and saved to the permanent medical record are reviewed. Prosthesis is unchanged in position and alignment. No signs of prosthetic wear or loosening. No periprosthetic fractures. Cheko Lackey DO IMG XR PROCEDURES Final Result from Last 3 Months Insurance MEDICARE [facility] Care Teams Pierce And Shave Press Operator Relationship Specialty Start Date End Date Alexandro Mendez DO PCP - General Internal Medicine 03/15/23
--- OUTSIDE RECORDS SUMMARY | 2025-02-14 10:51 | XMS_ITS | Encounter Summary ---
Author Organization [facility] Address [address] [place] [address] Care Team Providers Care Polysomnographic Tech Name Role Phone Alexandro Mendez Primary Care Provider [phone] Encounter Details Date Type Department Care Team (Late st Contact Info) Description 04/20/2023 Abstract [facility] [address] [place] [phone] Cheko Lackey DO [address] [place] [address] Social History Tobacco Use Types Packs/Day Years [...] [address] [place] [address] Yanique Sidhu APRN-RETREAD MOLD OPERATOR [address] [place] [address] 04/18/2025 10:15 AM EDT Office Visit [facility] [address] [place] [address] Morgan Mishra MD [address] [place] [address] documented as of this encounter Visit Diagnoses Not on filedocumented in this encounter Care Teams Polysomnographic Tech Relationship Specialty Start Date End Date Alexandro Mendez DO PCP - General Internal Medicine 03/15/23 documented as of this encounter
--- OUTSIDE RECORDS SUMMARY | 2025-02-14 10:51 | XMS_ITS | Encounter Summary ---
Author Organization [facility] Address [address] [facility] [address] [place] [address] Care Team Providers Care Digital Marketing Project Manager Name Role Phone Alexandro Mendez DO Primary Care Provider [phone] Encounter Details Date Type Department Care Team (Late st Contact Info) Description 07/31/2023 Abstract [facility] [address] [place] [address] Angela Choudhury, ROBIN [address] [place] [address] Social History Tobacco Use Types Packs/Day Years [...] Dermatology [address] [place] [phone] Yanique Sidhu, NADEEM-CATTLE BRANDER [address] [place] [address] 04/18/2025 10:15 AM EDT Office Visit [facility] [address] [place] [address] Morgan Mishra MD [address] [facility] [address] [place] [address] documented as of this encounter Visit Diagnoses Not on filedocumented in this encounter Care Teams Digital Marketing Project Manager Relationship Specialty Start Date End Date Alexandro Mendez DO PCP - General Internal Medicine 03/15/23 documented as of this encounter
--- OUTSIDE RECORDS SUMMARY | 2025-02-14 10:51 | XMS_ITS | Encounter Summary ---
Author Organization [facility] Address [address] [facility] [place] [address] Care Team Providers Care Information Technology Advisor Name Role Phone Alexandro Mendez DO Primary Care Provider [phone] Encounter Details Date Type Department Care Team (Late st Contact Info) Description 03/15/2023 Abstract [facility] [address] [facility] [address] [facility] [address] [place] [address] Morgan Mishra MD [address] [place] [address] Social History Tobacco Use Types Packs/Day Years [...] Office Visit [facility] [address] [place] [address] Yanique Sidhu APRN-AMBIKA [address] [place] [address] 04/18/2025 10:15 AM EDT Office Visit [facility] [place] [facility] [address] [place] [address] Morgan Mishra MD [address] [place] [address] documented as of this encounter Visit Diagnoses Not on filedocumented in this encounter Care Teams Information Technology Advisor Relationship Specialty Start Date End Date Alexandro Mendez DO PCP - General Internal Medicine 03/15/23 documented as of this encounter
--- OUTSIDE RECORDS SUMMARY | 2025-02-14 10:51 | XMS_ITS | Encounter Summary ---
Author Organization [facility] Address [address] [place] [address] Care Team Providers Care Game Programmer Name Role Phone Alexandro Mendez Primary Care Provider [phone] Encounter Details Date Type Department Care Team (Late st Contact Info) Description 07/09/2023 Abstract [facility] [address] [place] [phone] Cheko Lackey DO [address] [place] [address] Social History Tobacco Use Types Packs/Day Years [...] [address] [place] [address] Yanique Sidhu APRN-CORRECTIONAL PROGRAM SPECIALIST [address] [place] [address] 04/18/2025 10:15 AM EDT Office Visit [facility] [address] [place] [address] Morgan Mishra MD [address] [place] [address] documented as of this encounter Visit Diagnoses Not on filedocumented in this encounter Care Teams Game Programmer Relationship Specialty Start Date End Date Alexandro Mendez DO PCP - General Internal Medicine 03/15/23 documented as of this encounter
--- OUTSIDE RECORDS SUMMARY | 2025-02-14 10:51 | XMS_ITS | Encounter Summary ---
Author Organization [facility] Address [address] [place] [address] Care Team Providers Care Casting Trucker Name Role Phone Alexandro Mendez Primary Care Provider [phone] Encounter Details Date Type Department Care Team (Late st Contact Info) Description 04/22/2023 Orders Only [facility] [address] [place] [address] Cheko Lackey DO [address] [place], [place] [phone] Primary osteoarthritis of right knee (Primary Dx) [...] Dermatology [address] [place] [address] Yanique Sidhu, TELEPHONE SWITCHBOARD OPERATOR-RESAW OPERATOR [address] [place] [address] 04/18/2025 10:15 AM EDT Office Visit [facility] [address] [place] [address] Morgan Mishra MD [address] [place] [address] documented as of this encounter Visit Diagnoses Diagnosis Primary osteoarthritis of right knee- Primary documented in this encounter Care Teams Casting Trucker Relationship Specialty Start Date End Date Alexandro Mendez DO PCP - General Internal Medicine 03/15/23 documented as of this encounter
--- OUTSIDE RECORDS SUMMARY | 2025-02-14 10:51 | XMS_ITS | Clinical Summary ---
Author Organization [facility] Address [address] [address] Care Team Providers Care Appraisal Coordinator Name Role Phone Unavailable Primary Care Provider [...]
--- OUTSIDE RECORDS SUMMARY | 2025-02-14 10:51 | XMS_ITS | Encounter Summary ---
Author Organization [facility] Address [address] [place] [address] Care Team Providers Care Technology Education Teacher Name Role Phone Alexandro Mendez DO Primary Care Provider [phone] Encounter Details Date Type Department Care Team (Late st Contact Info) Description 05/03/2023 Clinisync Result Encounter [facility] External Department Unsolicited Cheko Lackey DO [address] [place] [address] Social History Tobacco Use Types Packs/Day Years [...] Dermatology [address] [place] [address] Yanique Sidhu APRN-LOSS PREVENTION MANAGER [address] [place] [address] 04/18/2025 10:15 AM EDT Office Visit [facility] [address] [place] [address] Morgan Mishra MD [address] [place] [address] documented as of this encounter Procedures Procedure [...] on filedocumented in this encounter Care Teams Technology Education Teacher Relationship Specialty Start Date End Date Alexandro Mendez DO PCP - General Internal Medicine 03/15/23 documented as of this encounter
--- NOTE | 2025-02-14 10:52 | US_ITS ---
The [address] [address] Patient Name: ROSELIA FITZPATRICK MRN: [id number] date: 1940 Sex: F Assigned Patient Location: US Current Patient Location: US Accession/Order Number: [id number] Exam Date: 02/14/2025 14:18 Report Date: 02/14/2025 14:19 At the request of: EVERARDO ROSARIO DO Procedure: US renal BI BILATERAL RENAL AND BLADDER ULTRASOUND CLINICAL HISTORY: Acute Kidney Injury COMPARISON: None FINDINGS: Estimation of renal size is approximately 9.7 on the right and 9.8 on the left. No contour deforming mass, shadowing stone or hydronephrosis. The urinary bladder is partially distended with a volume of 135 ml. No shadowing stone or focal lesion. US/US renal BI IMPRESSION: No acute findings. Impression dictated by: Rashard Gil Jr., D.O. 02/14/2025 2:19 PM Dictation Location: [place] [address] Electronically authenticated by: [id number] Date: 02/14/2025 14:19
--- OUTSIDE RECORDS SUMMARY | 2025-02-14 10:52 | XMS_ITS | Encounter Summary ---
Author Organization [facility] Address [address] [place] [address] Care Team Providers Care Coal Feeder Operator Name Role Phone Alexandro Mendez Primary Care Provider [phone] Encounter Details Date Type Department Care Team (Late st Contact Info) Description 11/27/2022 Abstract [facility] [address] [place] [phone] Cheko Lackey DO [address] [place] [address] Social History Tobacco Use Types Packs/Day Years [...] Description 03/19/2025 9:20 AM EDT Office Visit [facility] [address] [place] [address] Yanique Sidhu APRN-INFORMATION ARCHITECT [address] [place] [address] 04/18/2025 10:15 AM EDT Office Visit [facility] [place] [facility] [address] [place] [address] Morgan Mishra MD [address] [place] [address] documented as of this encounter Visit Diagnoses Not on filedocumented in this encounter Care Teams Coal Feeder Operator Relationship Specialty Start Date End Date Alexandro Mendez DO PCP - General Internal Medicine 03/15/23 documented as of this encounter
--- OUTSIDE RECORDS SUMMARY | 2025-02-14 10:56 | XMS_ITS | CCD ---
Author Organization [facility] Care Team Providers Care Ticket Worker Name Role Phone PHYSICIAN, DEFAULT Unavailable Unavailable PHYSICIAN, DEFAULT Unavailable Unavailable NAWRAS, ALI T Unavailable Unavailable NAWRAS, ALI T Unavailable Unavailable NAWRAS, ALI T Unavailable Unavailable SELF, REFERRED Unavailable Unavailable Piyush White Unavailable Unavailable Piyush White Unavailable Unavailable Alexandro Rosario Unavailable Unavailabl e Piyush White Unavailable Unavailable Piyush White Unavailable Unavailable Alexandro Rosario Unavailable Unavailable Alexandro Rosario Primary Care Provider Lena Phan Attending Provider [facility] Attending Provider DO Alexandro Rosario Primary Care Provider MD Morgan Brown Attending Provider [phone] Alexandro Rosario Unavailable Lena Phan Unavailable DR ALEXANDRO ROSARIO Attending Unavailable ABRAHAM, DR MCGEE Consulting Unavailable ABRAHAM, DR MCGEE Primary Care Unavailable ABRAHAM, DR MCGEE Admitting Unavailable ABRAHAM, DR MCGEE Consulting Unavailable ABRAHAM, DR MCGEE Primary Care Unavailable ABRAHAM, DR MCGEE Admitting Unavailable ABRAHAM, DR MCGEE Attending Unavailable ABRAHAM, DR MCGEE Consulting Unavailable ABRAHAM, DR MCGEE Primary Care Unavailable ABRAHAM, DR MCGEE Admitting Unavailable ABRAHAM, DR MCGEE Attending Unavailable PITA, DR PRIETO Martines Consulting Unavailable ABRAHAM, DR MCGEE Consulting Unavailable ABRAHAM, DR MCGEE Primary Care Unavailable ABRAHAM, DR MCGEE Admitting Unavailable ABRAHAM, DR MCGEE Attending Unavailable ALEXANDRO ROSARIO Primary Care Physician Cheko Ceja Admitting Unavailable Cheko Ceja Referring Unavailable Ziyad, Cheko Nazario Attending Unavailable Ziyad, Cheko A Referring Unavailable Ziyad, Cheko A Attending Unavailable Brown, Cheko A Admitting Unavailable Brown, Cheko A Referring Unavailable Ziyad, Cheko A Attending Unavailable Ziyad, Cheko A Admitting Unavailable Brown, Cheko A Admitting Unavailable Cheko Ceja Referring Unavailable Cheko Ceja Attending Unavailable Cheko Ceja Admitting Unavailable Cheko Ceja Referring Unavailable Cheko Ceja Attending Unavailable Alexandro Rosario MD Primary Care Provider DO Alexandro Rosario Primary Care Provider NADEEM Chang Attending Provider [phone] Elvira Chang Attending Unavailable Elvira Chang Admitting Unavailable Alexandro Rosario Primary Care Unavailable Alexandro Rosario DO Primary Care Provider Alexandro Rosario DO Attending Provider [phone] Lauren Ramos MD Attending Provider Alexandro Rosario DO Primary Care Provider MORGAN BROWN Attending Unavailable JERAMY BAXTER Attending Unavailable TERE SIDHU Attending Unavailable JERAMY BAXTER Attending Unavailable CHEKO CEJA Attending Unavailable CHEKO CEJA Referring Unavailable FIORELLA FORREST Attending Unavailable MORGAN BROWN Attending Unavailable MORGAN BROWN Referring Unavailable Alexandro Rosario DO Primary Care Provider [phone] Alexandro Rosario DO Attending Provider Allergies Allergy Classification Reported Allergen(s) Allergy Type Date of Onset Reaction(s) Facility (13 sources) predniSONE; Translations: [prednisone] Drug Allergy rash [facility] (20 sources) Cortisone; Translations: [cortisone] Drug Allergy 3 Unknown [facility] (8 sources) Ciprofloxacin Drug Allergy 3 [facility] Work Phone: (20 sources) Prednisone Allergy to substance 2 Rash, Unknown [facility] (20 sources) Triamcinolone Drug Allergy 3 Rash [facility] Medications Current Medications Medication Drug Class(es) Dates Sig (Normalized) Sig (Original) acetaminophen 325 mg / oxyCODONE hydrochloride 5 mg oral tablet (6 sources) Opioid Agonist Start: 07-07-2023 Percocet 5 mg-325 mg oral tablet See Instructions, 40 tab(s), Refill(s) 0, 1-2 tab(s) Oral q4hr, [id number], 160, cm, 07/07/23 6:45:00 EST, Height/Length Dosing, 72, kg, 07/07/23 6:15:00 EST, Weight Dosing Start Date: 07/07/23 Status: Ordered take 1 tablet by rasheed th every six hours oxyCODONE-acetaminophen (Percocet) 5-325 MG tablet Take 1 tablet by mouth every 6 (six) hours 0 Active alendronic acid 70 mg oral tablet (14 sources) Bisphosphonate Start: 08-03-2024 End: 08-03-2025 Alendronate 70 mg tablet Active MG PO October 05, 2024 12:00am Complies with drug therapy amoxicillin 875 mg oral tablet (2 sources) Penicillin-class Antibacterial Start: 10-09-2024 End: 10-16-2024 take 1 tablet by mouth in the morning amoxicillin (Amoxil) 875 MG tablet Indications: Acute mucoid otitis media of left ear Take 1 tablet (875 mg) by mouth in the morning and 1 tablet (875 mg) before bedtime. Do all this for 7 days. 14 tablet 10/09/2024 10/16/2024 Active amoxicillin 500 mg / clavulanate 125 mg oral tablet (2 sources) Penicillin-class Antibacterial Start: 03-22-2024 End: 03-29-2024 take 1 tablet by mouth in the morning amoxicillin-clavu lanate (Augmentin) 500-125 MG tablet Indications: Acute cystitis with hematuria Take 1 tablet (500 mg) by mouth in the morning and 1 tablet (500 mg) before bedtime. Do all this for 7 days. 14 tablet 03/22/2024 03/29/2024 Active aspirin 81 mg delayed release oral tablet (11 sources) Platelet Aggregation Inhibitor, Nonsteroidal Anti-inflammatory Drug Start: 07-07-2023 End: 08-06-2023 take 2 tablets by mouth in the morning [facility] Asp[facility] Low Dose 81 MG EC tablet Take 162 mg by mouth in the morning. 0 07/07/2023 Active Start: 05-19-2021 take 81 mg by mouth once daily aspirin 81 mg, Oral, Daily, Refills(s) 0, Prophylaxis Start Date: 05/19/21 Status: Ordered take 1 tablet by rasheed th every twenty-four hours Aspirin 81 81 MG 1 tablet Orally Once a day Active Calcium (12 sources) Phosphate Binder, Calcium Start: 11-10-2017 take 1200 mg by mouth once daily Calcium 600+D 1,200 mg, Oral, Daily, Refill(s) 0, Prophylaxis Start Date: 11/10/17 Status: Ordered Calcium Not-Taki ng/PRN Calcium Not-Taki ng calcium carbonate 1250 mg chewable tablet (20 sources) Start: 10-05-2023 calcium carbon ate (Os-Juan) 1250 (500 Ca) MG chewable tablet 10/05/2023 Active Start: 10-05-2023 take 1 tablet by rasheed th once daily Calcium Carbonate (Calcium 500) 500 mg calcium (1,250 mg) tablet,chewable Active 500 MG PO Daily October 05, 2023 12:00am Complies with drug therapy calcium carbonate 1250 mg / cholecalciferol 500 unt / vitamin k 0.04 mg chewable tablet (20 sources) Vitamin D calcium-vitamin D3-vitamin K (Viactiv) 500-500-40 MG-UNT-MCG chewable tablet Chew 1 tablet Daily Active calcium-vitamin D3-vitamin K (Viactiv) 500-500-40 MG-UNT-MCG chewable tablet Chew 1 tablet in the morning. Active cephalexin 500 mg oral capsule (15 sources) Cephalosporin Antibacterial Start: 02-12-2025 take 1 capsule by mouth three times daily Cephalexin 500 mg capsule Active 500 MG PO Three times daily 22 01February 12, 2025 12:00am Complies with drug therapy Start: 10-18-2024 End: 11-06-2024 take 1 capsule by mouth three times daily Cephalexin 500 mg capsule Discontinued 500 MG PO Three times daily 22 01October 18, 2024 12:00am November 06, 2024 8:55am Start: 05-04-2024 End: 10-09-2024 cephalexin (Keflex) 500 MG c apsule Indications: Presence of artificial knee joint, right Take 4 pills 30-60 mins before dental appointment with food 4 capsule 3 05/04/2024 10/09/2024 Discontinued (Therapy completed) Start: 07-07-2023 End: 07-14-2023 take 1 capsule by mouth every eight hours cephalexin (Keflex) 500 MG capsule TAKE 1 CAPSULE BY MOUTH EVERY 8 HOURS FOR 7 DAYS 0 07/07/2023 Active docusate sodium 100 mg oral capsule (6 sources) Start: 07-07-2023 Colace 100 MG capsule Take 100 mg by mouth 0 07/07/2023 Active ferrous fumarate-vitamin C E R (Radha-Sequeles 65-25) (12 sources) ferrous fumarate -vitamin C ER (Radha-Sequeles 65-25) Take 1 tablet by mouth in the morning and 1 tablet at noon and 1 tablet in the evening. Take with meals. Do not crush, chew, or split. Active ferrous fumarate -vitamin C ER (Radha-Sequeles 65-25) Take 1 tablet by mouth in the morning and 1 tablet at noon and 1 tablet in the evening. Take with meals. Do not crush, chew, or split.. Active fluticasone propionate 0.05 mg/actuat metered dose nasal spray (7 sources) Corticosteroid Start: 10-09-2024 take 1 spray(s) nasal route once daily fluticasone (Flonase) 50 MCG/ACT nasal spray Indications: Left ear pain Administer 1 spray into each nostril Daily Shake gently. Before first use, prime pump. After use, clean tip and replace cap. 16 g 10/09/2024 Active hydrocortisone 10 mg/ml / neomycin 3.5 mg/ml / polymyxin b 71630 unt/ml otic suspension (3 sources) Aminoglycoside Antibacterial, Polymyxin-class Antibacterial, Corticosteroid Start: 10-18-2024 Neomycin-Polymyxi n-Hc 3.5-10,000-1 mg/mL-unit/mL-% drops,suspension Active 4 DROPS OTIC Every 8 hours 10 October 18, 2024 12:00am Complies with drug therapy lidocaine 0.05 mg/mg medicated patch (8 sources) Antiarrhythmic, Amide Local Anesthetic Start: 01-21-2024 apply 1 dose topically once daily Lidocaine 5 % adhesive patch,medicated Active 2 PATCH TOPICAL Daily January 21, 2024 12:00am leave on most painful area for up to 12 hrs Complies with drug therapy MULTIPLE VITAMIN PO (20 sources) MULTIPLE VITAMIN PO Active MULTIPLE VITAMIN PO Orally Active MULTIPLE VITAMIN PO Orally 0 Active Multiple Vitamins Tab (3 sources) Start: 11-10-2017 take 1 tablet by mouth once daily Multiple Vitamins Tab 1 tab(s), Oral, Daily, Refill(s) 0, Prophylaxis Start Date: 11/10/17 Status: Ordered sulfamethoxazole 800 mg / trimethoprim 160 mg oral tablet (8 sources) Dihydrofolate Reductase Inhibitor Antibacterial, Sulfonamide Antimicrobial Start: 01-30-2025 End: 02-06-2025 take 1 tablet by mouth once in the morning, then take 1 tablet by mouth once at mealtime sulfamethoxazole -trimethoprim (Bactrim DS) 800-160 MG per tablet Indications: Presence of artificial knee joint, right Take 1 tablet by mouth in the morning and 1 tablet in the evening. Take with meals. Do all this for 7 days. 20 tablet 01/30/2025 02/06/2025 Active Start: 01-19-2025 End: 02-12-2025 take 1 tablet by mouth twice daily Sulfamethoxazole-Trimethoprim 800-160 mg tablet Discontinued 1 TAB PO Twice daily January 19, 2025 12:00am February 12, 2025 1:47pm Start: 05-07-2023 take 1 tablet by rasheed th every twelve hours Sulfamethoxazole-Trimethoprim 800-160 MG 1 tablet Orally Twice a day for 5 days May, Active Completed/Discontinued Medications Medication Drug Class(es) Dates Sig (Normalized) Sig (Original) azithromycin 250 mg oral tablet (6 sources) Macrolide Antimicrobial Start: 09-15-2022 Azithromycin 250 MG as directed Orally daily for 5 days Sep, Not-Taking/PRN celecoxib 100 mg oral capsule (11 sources) Nonsteroidal Anti-inflammatory Drug Start: 07-07-2023 End: 03-22-2024 CeleBREX 100 MG capsule Take 100 mg by mouth 07/07/2023 03/22/2024 Discontinued doxycycline hyclate 100 mg oral capsule (6 sources) Tetracycline-class Drug Start: 09-15-2022 take 1 capsule by mouth every twelve hours Doxycycline Hyclate 100 MG 1 capsule Orally Twice a day for 5 days Sep, Not-Taking/PRN meloxicam 7.5 mg oral tablet (9 sources) Nonsteroidal Anti-inflammatory Drug Start: 10-16-2020 take 1 tablet by mouth every twenty-four hours Meloxicam 7.5 MG 1 tablet Orally Once a day for 30 day(s) Oct, Not-Taking/PRN polyethylene glycol 3350 [id number] mg / potassium chloride 1480 mg / sodium bicarbonate 5720 mg / sodium chloride 81315 mg powder for oral solution (2 sources) Osmotic Laxative Start: 01-13-2018 PEG 3350-KCl-Na Bicarb-NaCl 420 GM Oral Solution Reconstituted TAKE DIRECTED. Quantity: 1 Refills: 0 Piyush White DO Start : 21-Jul-2018 Active 4000 ML Bottle pravastatin sodium 20 mg oral tablet (20 sources) HMG-CoA Reductase Inhibitor Start: 11-10-2017 End: 08-04-2024 take 1 tablet by mouth once daily in the evening Pravastatin 20 mg tablet Discontinued 20 MG PO Every evening September 28, 2023 12:00am August 04, 2024 5:04pm Triamcinolone (9 sources) Corticosteroid Start: 10-16-2020 Kenalog -40 mg Oct, 40 mg Problems Active Problems Problem Classification Problem Date Documented Da te Episodic/Chronic Acute bronchitis (1 source) Acute bronchitis due to other specified organisms Episodic Cancer of breast (18 sources) Malignant neoplasm of female breast; Translations: [Malignant neoplasm of overlapping sites of left female breast] Chronic Cancer of breast (13 sources) History of malignant neoplasm of breast; Translations: [Personal history of malignant neoplasm of breast] 09-27-2023 Episodic Diseases of white blood cells (13 sources) Eosinophil count raised; Translations: [Eosinophilia, unspecified] 09-28-2023 Chronic Disorders of lipid metabolism (20 sources) Pure hypercholesterolemia ; Translations: [Pure hypercholesterolemia , unspecified] Onset: 04-13-2022 Chronic Fever of unknown origin (4 sources) Fever, unspecified; Translations: [FEVER UNSPECIFIED] Onset: 09-15-2022 Episodic Genitourinary symptoms and ill-defined conditions (3 sources) Dysuria; Translations: [Dysuria] Episodic Headache; including migraine (5 sources) Occipital headache; Translations: [Recurrent occipital headache] 09-28-2023 Episodic Hemorrhoids (3 sources) Hemorrhoids 06-19-2021 Episodic Malaise and fatigue (1 source) Other fatigue Episodic Occlusion or stenosis of precerebral arteries (18 sources) Carotid artery stenosis; Translations: [Occlusion and stenosis of unspecified carotid artery] 09-28-2023 Chronic Osteoarthritis (20 sources) Osteoarthritis of right knee joint; Translations: [Unilateral primary osteoarthritis, right knee] Onset: 11-28-2022 Chronic Osteoporosis (20 sources) Senile osteoporosis; Translations: [Age-related osteoporosis without current pathological fracture] Onset: 11-28-2022 11-28-2022 Chronic Other aftercare (3 sources) Patient encounter status; Translations: [Aftercare following joint replacement surgery] 08-06-2023 Chronic Other and unspecified benign neoplasm (1 source) Polyp of hepatic flexure of colon; Translations: [Polyp of hepatic flexure of colon] Episodic Other and unspecified benign neoplasm (3 sources) History of polyp of colon 05-19-2021 Episodic Other and unspecified benign neoplasm (3 sources) Polyp of colon 06-19-2021 Episodic Other bone disease and musculoskeletal deformities (2 sources) Osteopenia; Translations: [Other specified disorders of bone density and structure, unspecified site] 04-13-2024 Episodic Other connective tissue disease (2 sources) Artificial knee joint present; Translations: [Presence of right artificial knee joint] 01-30-2025 Chronic Other connective tissue disease (1 source) History of total knee arthroplasty; Translations: [Presence of unspecified artificial knee joint] 02-12-2025 Chronic Other connective tissue disease (2 sources) Pain of right lower leg; Translations: [Pain in right lower leg] 02-12-2025 Episodic Other diseases of veins and lymphatics (13 sources) Peripheral venous insufficiency; Translations: [Venous insufficiency (chronic) (peripheral)] 09-28-2023 Episodic Other diseases of veins and lymphatics (4 sources) Venous insufficiency (chronic) (peripheral); Translations: [Venous (peripheral) insufficiency, unspecified] Episodic Other ear and sense organ disorders (14 sources) Bilateral central hearing loss; Translations: [Sensorineural hearing loss, bilateral] 09-28-2023 Chronic Other ear and sense organ disorders (16 sources) Sensorineural hearing loss, bilateral; Translations: [Sensorineural hearing loss, bilateral] 09-28-2023 Chronic Other ear and sense organ disorders (1 source) Sensorineural hearing loss, bilateral Chronic Other ear and sense organ disorders (4 sources) Sensorineural hearing loss; Translations: [Unspecified sensorineural hearing loss] 10-18-2024 Chronic Other ear and sense organ disorders (1 source) Unspecified sensorineural hearing loss; Translations: [Sensorineural hearing loss, unspecified] 10-18-2024 Chronic Other ear and sense organ disorders (1 source) Unspecified otitis externa, unspecified ear; Translations: [Infective otitis externa, unspecified] 10-18-2024 Chronic Other ear and sense organ disorders (1 source) Otitis externa; Translations: [Unspecified otitis externa, unspecified ear] 11-06-2024 Chronic Other ear and sense organ disorders (9 sources) Bilateral tinnitus; Translations: [Tinnitus, bilateral] Episodic Other ear and sense organ disorders (1 source) Otalgia, right ear Episodic Other ear and sense organ disorders (4 sources) Impacted cerumen of bilateral ears; Translations: [Impacted cerumen, bilateral] 03-22-2024 Episodic Other ear and sense organ disorders (3 sources) Otalgia, left ear; Translations: [Otalgia, unspecified] 10-09-2024 Episodic Other ear and sense organ disorders (2 sources) Ear pressure sensation; Translations: [Other specified disorders of ear, bilateral] 01-16-2025 Episodic Other lower respiratory disease (14 sources) Dyspnea on exertion; Translations: [Other forms of dyspnea] 09-28-2023 Episodic Other lower respiratory disease (4 sources) Rib pain; Translations: [Pleurodynia] 01-21-2024 Episodic Other lower respiratory disease (1 source) Pleurodynia; Translations: [Pleurodynia] Onset: 01-21-2024 Episodic Other nervous system disorders (9 sources) Chronic pain; Translations: [Other chronic pain] Chronic Other nervous system disorders (1 source) Other chronic pain Chronic Other non-traumatic joint disorders (1 source) Pain in right knee Episodic Other non-traumatic joint disorders (3 sources) Anterior knee pain; Translations: [Pain in right knee] 08-06-2023 Episodic Other nutritional; endocrine; and metabolic disorders (13 sources) Overweight; Translations: [Overweight] 10-05-2024 Episodic Other nutritional; endocrine; and metabolic disorders (3 sources) Overweight; Translations: [Overweight] Episodic Other screening for suspected conditions (not mental disorders or infectious disease) (4 sources) Breast neoplasm screening status; Translations: [Encounter for screening mammogram for malignant neoplasm of breast] 04-13-2024 Episodic Other skin disorders (2 sources) Actinic keratosis; Translations: [Actinic keratosis] 03-16-2024 Episodic Other skin disorders (2 sources) Seborrheic keratosis; Translations: [Other seborrheic keratosis] 03-16-2024 Episodic Other skin disorders (2 sources) Epidermoid cyst; Translations: [Epidermal cyst] 03-16-2024 Episodic Otitis media and related conditions (2 sources) Other acute nonsuppurative otitis media, left ear; Translations: [Acute mucoid otitis media] 10-09-2024 Episodic Residual codes; unclassified (3 sources) Family history of colorectal cancer 05-19-2021 Episodic Residual codes; unclassified (2 sources) Menopause present; Translations: [Asymptomatic menopausal state] 04-17-2024 Episodic Skin and subcutaneous tissue infections (2 sources) Cellulitis of right lower limb; Translations: [Cellulitis of right lower limb] 02-12-2025 Episodic Spondylosis; intervertebral disc disorders; other back problems (9 sources) Cervical spondylosis; Translations: [Spondylosis without myelopathy or radiculopathy, cervical region] 09-28-2023 Chronic Sprains and strains (6 sources) Low back strain; Translations: [Strain of muscle, fascia and tendon of lower back, initial encounter] 01-21-2024 Episodic Superficial injury; contusion (6 sources) Contusion of left chest wall; Translations: [Contusion of left front wall of thorax, initial encounter] 01-21-2024 Episodic Unclassified (2 sources) Unknown / UNK(Unknown) Onset: 12-23-2017 Unclassified (1 source) 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) Onset: 02-02-2018 Unclassified (1 source) CONTACT W/AND (SUSP) EXPOS COVID-19; Translations: [CONTACT W/AND (SUSP) EXPOS COVID-19] Onset: 09-21-2022 Urinary tract infections (4 sources) Acute cystitis; Translations: [Acute cystitis with hematuria] 03-22-2024 Episodic Varicose veins of lower extremity (11 sources) Pain co-occurrent and due to varicose veins of bilateral legs; Translations: [Varicose veins of bilateral lower extremities with pain] 02-12-2025 Episodic Past or Other Problems Problem Classification Problem Date Documented Da te Episodic/Chronic Cardiac dysrhythmias (4 sources) Palpitations; Translations: [PALPITATIONS] Onset: 04-09-2022 Episodic Nonspecific chest pain (1 source) Chest pain, unspecified; Translations: [CHEST PAIN UNSPECIFIED] Onset: 04-18-2022 Episodic Other lower respiratory disease (6 sources) Other forms of dyspnea; Translations: [OTHER FORMS OF DYSPNEA] Onset: 04-13-2022 Episodic Unclassified (1 source) Benign neoplasm of transverse colon; Translations: [Benign neoplasm of transverse colon] Onset: 02-02-2018 Unclassified (1 source) Colonoscopy planned; Translations: [Colonoscopy planned] Unclassified (5 sources) Eosinophilia, unspecified; Translations: [Eosinophilia, unspecified] Results Test Name Value Interpretation Reference Range Facility XR Knee - right 3 [facility] Result: Three views, bilateral PA weight-bearing/sunrise /lateral right knee, taken today and saved to the permanent medical record are reviewed. Prosthesis is unchanged in position and alignment. No signs of prosthetic wear or loosening. No periprosthetic fractures. [facility] XR Knee - right 3 [facility] Study observation (narrative) [facility] - Chemistry and C hemistry - challengeOrdered By: Lauren Ramos on 01-19-2025 Bilirubin Ql (U) Negative [facility] Glucose (U) [Mass/Vol] Negative [facility] Ketones Ql (U) ++ [facility] pH (U) 5 [pH] [facility] Specific gravity (U) [Rel density] 1.020 [facility] Urobilinogen (U) [Mass/Vol] 0.2 mg/dL [facility] - Specimen inform ationOrdered By: Lauren Ramos on 01-19-2025 Appearance (U) cloudy [facility] Color (U) yellow [facility] - UrinalysisOrder ed By: Lauren Ramos on 01-19-2025 Leukocyte esterase Test strip Ql (U) + [facility] Nitrite Ql (U) Negative [facility] Protein Ql (U) + [facility] No Panel InformationOrdered By: Lauren Ramos on 01-19-2025 Urine Occult Blood ++ [facility] BI MAMMOGRAM SCREENING TOMOS YNTHESIS BILATERALon 07-19-2024 BI MAMMOGRAM SCREENING TOMOSYNTHESIS BILATERAL This is a summary report. The complete report is available in the patient's medical record. If you cannot access the medical record, please contact the sending organization for a detailed fax or copy. EXAMINATION: BI MAMMOGRAM SCREENING TOMOSYNTHESIS BILATERAL CLINICAL HISTORY:screen COMPARISON: There are no previous mammograms available for comparison. RESULT: BI MAMMOGRAM SCREENING TOMOSYNTHESIS BILATERAL:07/19/2024 11:21 AM CLINICAL HISTORY:screen. COMPARISONS: March 20, 2020- May 10, 2023. TECHNIQUE: Routine full field 3D breast tomosynthesis was performed bilaterally. CAD analysis was performed and used in the interpretation. FINDINGS: Scattered fibroglandular densities are noted with stable asymmetry. There are no developing masses, suspicious microcalcifications, or areas of architectural distortion identified on today's examination. Posttreatment changes are again seen in the upper outer quadrant of the left breast. There is no significant change when compared to the prior examinations identified, given differences in technique and positioning. IMPRESSION: BI-RADS 2: BENIGN FINDINGS. ROUTINE FOLLOW-UP MAMMOGRAPHY IS SUGGESTED IN ONE YEAR. DENSITY: Scattered fibroglandular densities. Board Certified Radiologists. Accredited by the ACR and FDA. MAMMOGRAPHY IS VERY IMPORTANT TO YOUR HEALTH. THE [place] GUIDELINES RECOMMEND THAT WOMEN 40 YEARS OF AGE AND OLDER SHOULD HAVE A MAMMOGRAM EVERY YEAR. A REMINDER LETTER WILL BE SENT AT THE APPROPRIATE TIME. THIS FACILITY UTILIZES A REMINDER SYSTEM TO ENSURE ALL PATIENTS RECEIVE REMINDER NOTIFICATIONS AT THE APPROPRIATE TIME BASED ON THE RECOMMENDATIONS OF THIS EXAM. THIS INCLUDES REMINDERS FOR ROUTINE SCREENING MAMMOGRAMS, DIAGNOSTIC MAMMOGRAMS IN WHICH THE PATIENT IS ASKED TO RETURN FOR ADDITIONAL VIEWS, OR OTHER BREAST IMAGING INTERVENTIONS WHEN APPROPRIATE. THE PATIENT WILL BE PLACED IN THE APPROPRIATE REMINDER SYSTEM INCLUDING A REMINDER AT THE APPROPRIATE TIME FOR ANY PENDING ADDITIONAL VIEWS. ELECTRONICALLY SIGNED BY: Clark Mckinnon DO Normal Not Available Comment on above: Order Comment: U/S a nd spot compression if indicated DEXA BONE DENSITYon 07-19-19 DEXA BONE DENSITY Examination: DEXA LEO NE DENSITY Clinical History: screen Technique: Bone density study was performed. T score values for the lumbar spine, right femoral neck and left femoral neck were obtained. Comparison: None Findings: Value for the lumbar spine from L1-L4 is -1.6. Value for the right femoral neck is -2.8. Value for the left femoral neck is -2.0. Findings are compatible with osteoporosis with high increased fracture risk. IMPRESSION: Impression: Findings compatible with osteoporosis with high increased fracture risk. ELECTRONICALLY SIGNED BY: Santos Pedraza M.D. Normal Not Available Laboratory - Chemistry and C hemistry - challengeon 03-22-2024 Bilirubin Ql (U) Negative [facility] Glucose [Mass/Vol] Negative [facility] Ketones Ql (U) Negative [facility] pH (U) 6.0 [pH] [facility] Specific gravity (U) [Rel density] 1.020 [facility] Urobilinogen (U) [Mass/Vol] 0.2 mg/dL [facility] Laboratory - Hematology and Cell countson 03-22-2024 Hemoglobin Ql (U) Positive [facility] Laboratory - Urinalysison Nitrite Ql (U) Negative [facility] Protein Ql (U) 30mg [facility] No Panel Informationon 03-22 Interpretation and review of laboratory results Abnormal [facility] LEUKOCYTES Positive [facility] No Panel Informationon 03-16 [facility] XR ribs LT min 3V w CXR1V*on 01-21-2024 XR ribs LT min 3V w CXR1V* [facility] [address] XRay Report Signed Patient: Roselia Miles MR#: [id number] : 1940 Acct:[id number] Age/Sex: 83 / F ADM Date: 01/21/24 Loc: [facility] Room: Type: [facility] Attending Dr: Elvira Chang APRN Copies to: Elvira Chang APRN Ordering Provider: Elvira Chang APRN Date of Service: 01/21/24 XR/XR ribs LT min 3V w CXR1V*: R07.81 - Pleurodynia XR ribs LT min 3V w CXR1V* 01/21/2024 3:46 PM SIGNS AND SYMPTOMS: Fall, left lateral rib pain PROTOCOL: Frontal radiograph of the chest with oblique radiographs of the left ribs COMPARISON: None FINDINGS: The trachea is midline. The heart and mediastinal structures are within normal limits. The lung parenchyma is clear. Surgical clips are noted along the left chest wall. The bony thorax is intact. No acute displaced rib fracture. XR/XR ribs LT min 3V w CXR1V* IMPRESSION: No acute cardiopulmonary pathology. No acute displaced rib fracture. Impression dictated by: Matt Wellington M.D.01/21/2024 4:14 PM Dictation Location: [place] [address] Transcribed By: [facility] 01/21/241613 Dictated By: Matt Wellington II, MD 01/21/241611 Signed By: 01/21/24 161 Normal [facility] Basophils Auto (Bld) [#/Vol] on 11-02-2023 Basophils (Bld) [#/Vol] 0.1 10 3/uL 0.0-0.1 [facility] Basophils/100 WBC Auto (Bld) on 11-02-2023 Basophils/100 WBC (Bld) 1.6 % 0.2-2.0 [facility] Cholesterol in LDL Calc [Mas s/Vol]on 11-02-2023 Cholesterol in LDL [Mass/Vol] 125.6 mg/dL [facility] Comment on above: <100 mg/dl [id number] 0-129 mg/dl NEAR OR ABOVE [id number] mg/dl BORDERLINE [id number] mg/dl HIGH>190 mg/dl VERY HIGH Cholesterol in VLDL Calc [Ma ss/Vol]on 11-02-2023 Cholesterol in VLDL [Mass/Vol] 10.4 mg/dL [facility] Eosinophils/100 WBC Auto (Bl d)on 11-02-2023 Eosinophils/100 WBC (Bld) 11.3 % High 0.9-7.0 [facility] Erythrocyte distribution wid th Auto (RBC) [Ratio]on 11-02-2023 Erythrocyte distribution width (RBC) [Ratio] 14.3 % 11.0-15.0 [facility] Estimated glomerular filtrat ion rate (GFR) non- Americanon 11-02-2023 GFR/1.73 sq M.predicted among non-blacks MDRD (S/P/Bld) [Vol rate/Area] 48 mL/min/{1.73_m2} Low >=60 [facility] Globulin Calc (S) [Mass/Vol] on 11-02-2023 Globulin (S) [Mass/Vol] 4.2 g/dL [facility] Hematocrit Auto (Bld) [Volum e fraction]on 11-02-2023 Hematocrit (Bld) [Volume fraction] 41.3 % 36.0-48.0 [facility] Hemoglobin [Mass/volume] in Bloodon 11-02-2023 Hemoglobin (Bld) [Mass/Vol] 12.7 g/dL 12.0-16.0 [facility] Laboratory - Chemistry and C hemistry - challengeon 11-02-2023 Albumin [Mass/Vol] 3.4 g/dL 3.4-5.0 [facility] ALP [Catalytic activity/Vol] 92 U/L 46-116 [facility] ALT [Catalytic activity/Vol] 18 U/L 14-59 [facility] AST [Catalytic activity/Vol] 15 U/L 15-37 [facility] Bilirubin [Mass/Vol] 0.5 mg/dL 0.2-1.0 [facility] Calcium [Mass/Vol] 9.9 mg/dL 8.5-10.1 [facility] Chloride [Moles/Vol] 106 mmol/L 98-107 [facility] Cholesterol [Mass/Vol] 193 mg/dL <=200 [facility] Cholesterol in HDL [Mass/Vol] 57 mg/dL 40-60 [facility] Comment on above: > or =60 mg/dl - LOW CARDIOVASCULAR RISK<40 mg/dl - HIGH CARDIOVASCULAR RISK CO2 [Moles/Vol] 26.7 mmol/L 21.0-32.0 [facility] Creatinine [Mass/Vol] 1.09 mg/dL High 0.55-1.02 [facility] GFR/1.73 sq M.predicted MDRD (S/P/Bld) [Vol rate/Area] 58 mL/min/{1.73_m2} Low >=60 [facility] Glucose [Mass/Vol] 94 mg/dL 74-106 [facility] Potassium [Moles/Vol] 4.3 mmol/L 3.5-5.1 [facility] Protein [Mass/Vol] 7.6 g/dL 6.4-8.2 [facility] Sodium [Moles/Vol] 140 mmol/L 136-145 [facility] Triglyceride [Mass/Vol] 52 mg/dL <=150 [facility] Urea nitrogen [Mass/Vol] 22.0 mg/dL High 7.0-18.0 [facility] Urea nitrogen/Creatinine [Mass ratio] 20.2 mg/mg [facility] Laboratory - Hematology and Cell countson 11-02-2023 Immature granulocytes/100 WBC (Bld) 0.1 % 0.0-0.5 [facility] Leukocytes [#/volume] correc shayy for nucleated erythrocytes in Blood by Automated counon 11-02-2023 WBC corrected for nucl RBC Auto (Bld) [#/Vol] 6.8 10 3/uL 4.0-11.0 [facility] Lymphocytes Auto (Bld) [#/Vo l]on 11-02-2023 Lymphocytes (Bld) [#/Vol] 1.8 10 3/uL 1.2-3.8 [facility] Lymphocytes/100 WBC Auto (Bl d)on 11-02-2023 Lymphocytes/100 WBC (Bld) 26.8 % 20.5-60.0 [facility] MCH Auto (RBC) [Entitic mass ]on 11-02-2023 MCH (RBC) [Entitic mass] 28.9 pg 26.7-34.0 [facility] MCHC Auto (RBC) [Mass/Vol]on 11-02-2023 MCHC (RBC) [Mass/Vol] 30.8 g/dL 29.9-35.2 [facility] MCV Auto (RBC) [Entitic vol] on 11-02-2023 MCV (RBC) [Entitic vol] 94.1 fL 81.0-99.0 [facility] Monocytes Auto (Bld) [#/Vol] on 11-02-2023 Monocytes (Bld) [#/Vol] 0.7 10 3/uL 0.3-0.8 [facility] Monocytes/100 WBC Auto (Bld) on 11-02-2023 Monocytes/100 WBC (Bld) 10.1 % 1.7-12.0 [facility] Neutrophils Auto (Bld) [#/Vo l]on 11-02-2023 Neutrophils (Bld) [#/Vol] 3.4 10 3/uL 1.4-6.5 [facility] Neutrophils/100 WBC Auto (Bl d)on 11-02-2023 Neutrophils/100 WBC (Bld) 50.1 % 43.0-75.0 [facility] No Panel Informationon 11-01 Eosinophils # (Auto) 0.8 10 3/uL High 0.0-0.7 [facility] Immature Granulocyte # (Auto) 0.01 10 3/uL 0.00-0.03 [facility] Nucleated Red Blood Cells/100 WBC 0 [facility] Platelet mean volume Auto (B ld) [Entitic vol]on 11-02-2023 Platelet mean volume (Bld) [Entitic vol] 10.4 fL 9.5-13.5 [facility] Platelets Auto (Bld) [#/Vol] on 11-02-2023 Platelets (Bld) [#/Vol] 337 10 3/uL 150-450 [facility] RBC Auto (Bld) [#/Vol]on RBC (Bld) [#/Vol] 4.39 10 6/uL 4.20-5.40 [facility] Serum or plasma albumin/glob ulin mass ratioon 11-02-2023 Albumin/Globulin [Mass ratio] 0.8 {ratio} [facility] Serum or plasma anion gap de terminationon 11-02-2023 Anion gap [Moles/Vol] 11.6 mmol/L [facility] Serum or plasma total choles terol/high density lipoprotein (HDL) cholesterol mass stanley 11-02-2023 Cholesterol.total/Cho lesterol in HDL [Mass ratio] 3.4 {ratio} [facility] Comment on above: 3.3 - 4.4 LOW RISK4. 4 - 7.1 AVERAGE RISK7.1 - 11.0 MODERATE RISK>11.0 HIGH RISK IntraOperative Documentson 0 07-12-2023 IntraOperative Documents [id number]#[id number] 0TIFF Normal [place] Operative Reporton Operative Report Patient: ROSELIA MILES Age: 82 years Sex: Female : 1940 Associated Diagnoses: None Author: MD Pop Ahmad F Postoperative Information Date/ Time: 07/07/2023 07:00:00 Preoperative Diagnosis: Acute postoperative pain., Per surgeon request for post-op pain management. Postoperative Diagnosis: Acute postoperative pain, Per surgeon request for post-op pain management. Procedure: adductor canal nerve block. Anesthesia Method: Local, Monitored anesthesia care. Performed by: MD Pop Ahmad F. Medications: Midazolam 2mg, Fentanyl . Complications: None. Notes: The patient was interviewed and examined prior to the planned operation. Anesthesia options were discussed including the adductor canal nerve block for postoperative analgesia. This discussion included a description of the procedure, risks and benefits, as well as alternatives to the block. The patient's questions were addressed and the patient elected to proceed with the adductor canal nerve block. After a timeout, the patient was placed in the supine position and monitored with continuous pulse oximetry, non-invasive blood pressure, and electrocardiography. The thigh was prepped with CHG and sterilely draped. Anatomical landmarks were identified with ultrasonographic guidance. A 2 x 22 gauge Stimuplex needle was inserted without pain or paresthesias. With the needle held in place, and with intermittent attempts for aspiration of blood, 20 cc of 0.5% Ropivacaine was injected at 5cc intervals. Negative aspiration for blood was confirmed at every 5cc interval. No signs or symptoms of intravascular or intraneural injection were evidenced. The patient tolerated the procedure well without complications. . Normal [place] Comment on above: Result Comment: Elec tronically Signed By: MD Pop Ahmad F\.br\Date and Time Signed: 07/10/23 12:02 EST Progress Note-Physicianon Progress Note-Physician Patient: ROSELIA MILES Age: 82 years Sex: Female : 1940 Associated Diagnoses: None Author: MD Pop Ahmad F Postoperative Information Postoperative disposition: Postoperative disposition: To PACU. Optimetrix number: Optimetrix number [id number]. Anesthetic utilized: Regional: Spinal. Health Status Allergies: Allergic Reactions (Selected) Severity Not Documented Cortisone- Itching and erythema. PredniSONE- Itching. Physical Examination VS/Measurements Pain Assessment: Controlled. General: Awake, Alert, Appropriate. Respiratory: Adequate air exchange. Cardiovascular: Stable, Normal peripheral perfusion. Neurological: Normal sensory function. Assessment Anesthetic outcome No anesthetic complications noted. Adequate pain relief. able to void without difficulty, tolerating PO intake, no N/V. Review / Management Condition: Stable. Plan Transfer/Discharge: Transfer/Discharge Discharge when meets criteria ( To home ). Normal [place] Comment on above: Result Comment: Elec tronically Signed By: MD Pop Ahmad F\.br\Date and Time Signed: 07/10/23 12:04 EST Progress Note-Physician Patient: ROSELIA MILES Age: 82 years Sex: Female : 1940 Associated Diagnoses: None Author: MD Pop Ahmad F Preoperative Information Time patient last ate or drank:=== (npo 8 hours) Anesthesia history: Patient history: No prior anesthesia problems. Re-evaluation prior to induction: Completed, Initial evaluation reviewed. Review of Systems Respiratory: No shortness of breath. Cardiovascular: No chest pain. Hematology/Lymphatics: No bruising tendency, No bleeding tendency. Health Status Allergies: Allergic Reactions (All) Severity Not Documented Cortisone- Itching and erythema. PredniSONE- Itching. Current medications: (Selected) Prescriptions Prescribed CeleBREX 100 mg Cap: 100 mg = 1 cap(s), Oral, BID, PRN for pain, # 60 cap(s), Refills(s) 2, Pharmacy: [facility]/pharmacy #[id number], 160, cm, 07/07/23 6:45:00 EST, Height/Length Dosing, 72, kg, 07/07/23 6:15:00 EST, Weight Dosing Colace 100 mg Cap: 100 mg = 1 cap(s), Oral, BID, PRN for constipation, # 20 cap(s), Refills(s) 0, Pharmacy: [facility]/pharmacy #[id number], 160, cm, 07/07/23 6:45:00 EST, Height/Length Dosing, 72, kg, 07/07/23 6:15:00 EST, Weight Dosing Keflex 500 mg Cap: 500 mg = 1 cap(s), Oral, q8hr, X 7 day(s), # 21 cap(s), Refills(s) 0, [id number] 160, cm, 07/07/23 6:45:00 EST, Height/Length Dosing, 72, kg, 07/07/23 6:15:00 EST, Weight Dosing Percocet 5 mg-325 mg oral tablet: See Instructions, 40 tab(s), Refill(s) 0, 1-2 tab(s) Oral q4hr, [facility]/pharmacy #[id number], 160, cm, 07/07/23 6:45:00 EST, Height/Length Dosing, 72, kg, 07/07/23 6:15:00 EST, Weight Dosing aspirin 81 mg Oral EC Tab: 162 mg = 2 tab(s), Oral, Daily, X 30 day(s), # 60 tab(s), Refills(s) 0, [id number], 160, cm, 07/07/23 6:45:00 EST, Height/Length Dosing, 72, kg, 07/07/23 6:15:00 EST, Weight Dosing Documented Medications Documented Calcium 600+D: 1,200 mg, Oral, Daily, Refill(s) 0, Prophylaxis Multiple Vitamins Tab: 1 tab(s), Oral, Daily, Refill(s) 0, Prophylaxis pravastatin: 20 mg, Oral, Daily, Refills(s) 0, High cholesterol Problem list: All Problems High cholesterol / SNOMED CT 67496512 / Confirmed History of colon polyps / SNOMED CT 1075448052 / Confirmed Family history of rectal cancer / SNOMED CT 2591440347 / Confirmed Colon polyp / SNOMED CT 049422713 / Confirmed Hemorrhoids / SNOMED CT 882951110 / Confirmed Resolved: At risk for falls / SNOMED CT 003678699 Problem added when Risk for Falls Careplan was initiated. Resolved due to patient discharge. Histories Past Medical History: No active or resolved past medical history items have been selected or recorded. Family History: Primary malignant neoplasm of colon Mother Procedure history: Total knee replacement ([id number]) on 07/07/2023 at 82 Years. Colonoscopy (898926394) on 06/09/2021 at 80 Years. Comments: 06/09/2021 14:33 ANTONIO - Mariam RN, Jolynn paredesverse colon polyp, IH Lumpectomy of breast (3699275161) on 07/05/1995 at 54 Years. Dilation and curettage (08175810). Bilateral cataracts (942667497). History of tonsillectomy (8899978844). Social History Social & Psychosocial Habits Alcohol 06/22/2023 Risk Assessment: Denies Alcohol Use Substance Abuse 06/22/2023 Risk Assessment: Denies Substance Abuse Tobacco 06/22/2023 Tobacco Use: Never (less than 100 in l Smokeless tobacco use: Never . Physical Examination Please see preop flow sheet Airway: Mallampati classification: II (soft palate, fauces, uvula visible). Respiratory: Lungs are clear to auscultation. Cardiovascular: Normal rate, Regular rhythm. Neurologic: Alert. Review / Management Results review Interpretation of Outside Results Chest x-ray results Radiology results ECG interpretation Condition Plan [place] [employer]esthesi[employer] (ASA) physical status classification: Class III. Anesthetic Preoperative Plan Anesthesia: Regional Spinal. Anesthetic plan, risks, benefits, and alternatives discussed with the patient and/or family. Risks discussed: nausea, vomiting, headache, sore throat, dental injury, serious complications. Patient verbalized understanding. Communication: face to face with patient 5 minutes. Normal [place] Comment on above: Result Comment: Elec tronically Signed By: MD Donn, Vega Elena\.br\Date and Time Signed: 07/10/23 12:00 EST Auto Diffon 07-08-2023 Basophils/100 WBC (Bld) 0.4 % Normal 0.0-2.0 [facility] Comment on above: Order Comment: Order Added by Discern Expert. Performed By: #### 2 613947, 5198137, 4035686, 7065836, 10297745, 0966285 ####[facility] [address] [place] [address] Basophils/Leukocytes Auto (Bld) [Pure # fraction] 0.0 E9/L Normal 0.0-0.2 [facility] Comment on above: Order Comment: Order Added by Discern Expert. Performed By: #### 2 423487, 5665434, 2116079, 1771245, 13536202, 5664620 ####[place] [address] [place] [address] Eosinophils/100 WBC (Bld) 4.6 % Normal 0.0-8.0 [facility] Comment on above: Order Comment: Order Added by Discern Expert. Performed By: #### 2 340255, 6820336, 5776904, 5510630, 29017692, 2510622 ####[place] [address] [place] [address] Eosinophils/Leukocyte s Auto (Bld) [Pure # fraction] 0.4 E9/L Normal 0.0-0.5 [facility] Comment on above: Order Comment: Order Added by Discern Expert. Performed By: #### 2 605086, 4070667, 3144164, 6263148, 09374747, 4263907 ####[address] [address] Lymphocytes/100 WBC (Bld) 9.0 % Low 14.0-50.0 [facility] Comment on above: Order Comment: Order Added by Skye Expert. Performed By: #### 2 783772, 6274668, 7277331, 7524581, 53296409, 2177156 ####[address] [address] Lymphocytes/Leukocyte s Auto (Bld) [Pure # fraction] 0.9 E9/L Low 1.0-4.0 [facility] Comment on above: Order Comment: Order Added by Discern Expert. Performed By: #### 2 354838, 2871254, 2462497, 0423882, 55045575, 6429362 ####[address] [address] Monocytes/100 WBC (Bld) 15.1 % High 4.0-14.0 [facility] Comment on above: Order Comment: Order Added by Discern Expert. Performed By: #### 2 552659, 3725972, 4418013, 8090828, 21764293, 5016676 ####[facility] [address] [place] [address] Monocytes/Leukocytes Auto (Bld) [Pure # fraction] 1.5 E9/L High 0.2-1.0 [facility] Comment on above: Order Comment: Order Added by Discern Expert. Performed By: #### 2 694524, 5945519, 2987143, 2548944, 89504031, 0762412 ####[facility] [address] [place] [address] Neutrophils/100 WBC (Bld) 70.9 % Normal 36.0-75.0 [facility] Comment on above: Order Comment: Order Added by Discern Expert. Performed By: #### 2 202266, 2754805, 3588550, 4874682, 07078911, 2201180 ####[place] [address] [place] [address] Neutrophils/Leukocyte s Auto (Bld) [Pure # fraction] 6.8 E9/L Normal 2.0-7.5 [facility] Comment on above: Order Comment: Order Added by Discern Expert. Performed By: #### 2 909929, 4449037, 9210306, 5676224, 56975015, 0776736 ####[place] [address] [place] [address] BUNon 07-08-2023 Urea nitrogen [Mass/Vol] 14 mg/dL Normal 5-21 [facility] Comment on above: Performed By: #### 2 189577, 0064500, 0728390, 2278317, 79300582, 9847885 #### [facility] [address] [place] [address] CBC w/ Auto Diffon Erythrocyte distribution width (RBC) [Ratio] 14.4 % High 10.9-14.2 [facility] Comment on above: Performed By: #### 2 449773, 8253503, 9147385, 5753571, 37244002, 5761124 ####[place] [address] Hematocrit (Bld) [Volume fraction] 33.3 % Low 34.0-46.0 [facility] Comment on above: Performed By: #### 2 461200, 9755788, 3465012, 5067246, 84560689, 9264143 ####[address] [address] Hemoglobin (Bld) [Mass/Vol] 11.0 g/dL Low 12.0-16.0 [facility] Comment on above: Performed By: #### 2 046906, 4361830, 0906687, 6969439, 42268498, 7826563 ####[place] [address] MCH (RBC) [Entitic mass] 29.7 pg Normal 27.0-34.0 [facility] Comment on above: Performed By: #### 2 701338, 1876994, 2145410, 2228920, 89920267, 8931700 ####[address] [address] MCHC (RBC) [Mass/Vol] 33.1 g/dL Normal 31.4-36.0 [facility] Comment on above: Performed By: #### 2 531804, 4776177, 5707464, 4810689, 10411242, 6608898 ####[place] [address] MCV (RBC) [Entitic vol] 89.7 fL Normal 80.0-100.0 [facility] Comment on above: Performed By: #### 2 811466, 5335817, 6131878, 0132885, 31256017, 1179622 ####[address] [address] Platelet mean volume (Bld) [Entitic vol] 8.6 fL Normal 6.4-10.8 [facility] Comment on above: Performed By: #### 2 696010, 3585319, 2733208, 1961954, 94562518, 3385438 ####[facility] [address] [place] [address] Platelets (Bld) [#/Vol] 244.0 E9/L Normal 150.0-500.0 [facility] Comment on above: Performed By: #### 2 965621, 8948847, 6697146, 7854024, 15667938, 7253216 ####[facility] [address] [place] [address] RBC (Bld) [#/Vol] 3.7 E12/L Low 4.3-5.9 [facility] Comment on above: Performed By: #### 2 634476, 6417905, 5576291, 2213541, 76033063, 4766001 ####[facility] [address] [place] [address] WBC corrected for nucl RBC Auto (Bld) [#/Vol] 9.7 E9/L Normal 4.0-11.0 [facility] Comment on above: Performed By: #### 2 693080, 3490845, 6150609, 9922116, 87507830, 7560549 ####[facility] [address] [place] [address] CHEMISTRYOrdered By: SYSTEM SYSTEM on 07-08-2023 Anion gap [Moles/Vol] 10 mmol/L Normal 6 - 16 mEq/L [facility] Chloride [Moles/Vol] 111 mmol/L Normal 101 - 1 11 mmol/L [facility] CO2 [Moles/Vol] 22 mmol/L Normal 21 - 31 mmol/L [facility] Creatinine [Mass/Vol] 1.0 mg/dL Normal 0.5 - 1.3 mg/dL [facility] Chem eGFR 55 mL/min/1.73 m2 Low >=59mL/min / 1.73 m2 [facility] Potassium [Moles/Vol] 4.2 mmol/L Normal 3.5 - 5.3 mmol/L [facility] Sodium [Moles/Vol] 139 mmol/L Normal 135 - 145 mmol/L [facility] Urea nitrogen [Mass/Vol] 14 mg/dL Normal 5 - 21 mg/dL [facility] Chem Consent for Anesthesiaon Consent for Anesthesia [id number] Normal [place] Creatinineon 07-08-2023 Creatinine [Mass/Vol] 1.0 mg/dL Normal 0.5-1.3 [facility] Comment on above: Performed By: #### 2 287441, 6038685, 1356273, 1565683, 40383404, 1066090 #### [facility] [address] [place] [place] [address] Discharge Note-Nursingon Discharge Note-Nursing ROSELIA MILES :1940 Visit Date:07/07/2023 Inpatient Discharge Instructions Your Care Team Admitting Physician - Cheko Ceja DO Referring Physician - Cheko Ceja DO Reason for Your Visit OA RIGHT KNEE Your Diagnosis Degenerative arthritis of right knee Tests Performed ABO/Rh Antibody Screen Automated Diff eGFR XR Knee 1 or 2 Views Right This Is Your Medications List acetaminophen-oxycodon e (Percocet 5 mg-325 mg oral tablet) aspirin (aspirin 81 mg Oral EC Tab) calcium-vitamin D (Calcium 600+D) celecoxib (CeleBREX 100 mg Cap) cephalexin (Keflex 500 mg Cap) docusate (Colace 100 mg Cap) multivitamin (Multiple Vitamins Tab) pravastatin Procedure History Colonoscopy (06/09/2021), Lumpectomy of breast (07/05/1995), Bilateral cataracts, Dilation and curettage, History of tonsillectomy. Discharge Vitals Temperature (Oral) 36.8 ?C Heart Rate (Monitored) 73 Respiratory Rate 16 Blood Pressure 172/73 What to do next Instructions From Your Doctor Event Name Event Result Pending Diagnostic Test Results None Pharmacy Information [facility] New Follow Up Appointments after Discharge Follow Up with Cheko Ceja When: 07/22/2023 02:30 PM EST Where: [address] [place] [place] [address]- Business (1) Follow Up with ALEXANDRO ROSARIO When: Comments: No need to see PCP at this time unless systems worsen. [facility] [address] [place] [address]- Business (1) Medications What How Much When Instructions Next Dose New acetaminophen-oxycodon e (Percocet 5 mg-325 mg oral tablet) See instructions 1-2 tab(s) [facility]hr [facility], NO DOSES TODAY New aspirin (aspirin 81 mg Oral EC Tab) 2 Tablets By Mouth Every day Duration: 30 Days Pickup at [facility]/pharmacy #6177 07/09 @ 9 AM New celecoxib (CeleBREX 100 mg Cap) 1 Capsules By Mouth 2 times a day as needed for for pain Refills: 2 Pickup at [facility]/pharmacy #6177 TWICE DAILY NEEDED FOR PAIN New cephalexin (Keflex 500 mg Cap) 1 Capsules By Mouth Every 8 hours Duration: 7 Days Pickup at [facility]/pharmacy #6177 07/09 @ 8 AM, 4 PM, 12 AM New docusate (Colace 100 mg Cap) 1 Capsules By Mouth 2 times a day as needed for for constipation [facility] Unchanged calcium-vitamin D (Calcium 600+D) 1,200 Milligram By Mouth Every day 07/09 @ 9 AM Unchanged multivitamin (Multiple Vitamins Tab) 1 Tablets By Mouth Every day 07/09 @ 9 AM Unchanged pravastatin 20 Milligram By Mouth Every day 07/09 @ 9 AM Pharmacy Information [facility]/pharmacy #6177: [address], [place] [id number] [phone] Test Results CBC BMP WBC: 9.7 E9/L (07/08/23 04:32:00) BUN: 14 mg/dL (07/08/23 04:32:00) RBC: 3.7 E12/L Low (07/08/23 04:32:00) Creatinine: 1 mg/dL (07/08/23 04:32:00) HGB: 11 gm/dL Low (07/08/23 04:32:00) Sodium Lvl: 139 mmol/L (07/08/23 04:32:00) Hct: 33.3 % Low (07/08/23 04:32:00) Potassium Lvl: 4.2 mmol/L (07/08/23 04:32:00) MCV: 89.7 fL (07/08/23 04:32:00) Chloride: 111 mmol/L (07/08/23 04:32:00) MCH: 29.7 pg (07/08/23 04:32:00) CO2: 22 mmol/L (07/08/23 04:32:00) MCHC: 33.1 gm/dL (07/08/23 04:32:00) AGAP: 10 mEq/L (07/08/23:32:00) RDW: 14.4 % High (07/08/23 04:32:00) Platelet: 244 E9/L (07/08/23:32:00) MPV: 8.6 fL (07/08/23:32:00) Allergies cortisone (Erythema, Itching) predniSONE (Itching) Problems Ongoing - Any problem that you are currently receiving treatment for. Colon polyp Family history of rectal cancer Hemorrhoids History of colon polyps Devices Implanted/Removed This Visit Notice: You have devices implanted this visit that may not be MRI compatible. Implanted KNEE TOTAL ROBOT ARTHROPLASTY Knee R ASYMMETRIC PATELLA 07/07/2023 TIBIAL BEARING INSERT -CS 07/07/2023 TIBIAL COMPONENT 07/07/2023 CRUCIATE RETAINING FEMORAL 07/07/2023 Education Materials [place], [place] [facility] DISCHARGE INSTRUCTIONS: TOTAL KNEE ARTHROPLASTY INCISION CARE: The bandage may be changed by your home Physical Therapist at 7 days postoperatively and worn an additional 7 days. A new Mepilex bandage should then be placed. The bandage is waterproof, so you may shower at home. Steri-strips (paper tape strips) may be applied to the incision if any slight wound separation is noted. These should remain in place for five days and then they may come off in the shower. Please notify the office if any increase in redness, tenderness, drainage, fever, or wound separation is noted beyond this point. MEDICATIONS: You may resume your home medications at the time of discharge. Arixtra and Lovenox are mild blood thinners that prevent the development of blood clots in the legs. One of these has been used during your hospitalization. After discharge home you should continue the use of two s (more content not included)... Normal [place] HEMATOLOGYOrdered By: SYSTEM SYSTEM on 07-08-2023 Basophils/100 WBC (Bld) 0.4 % Normal 0.0 - 2.0 % [facility] Basophils/Leukocytes Auto (Bld) [Pure # fraction] 0.0 E9/L Normal 0.0 - 0.2 E9/L [facility] Eosinophils/100 WBC (Bld) 4.6 % Normal 0.0 - 8.0 % [facility] Eosinophils/Leukocyte s Auto (Bld) [Pure # fraction] 0.4 E9/L Normal 0.0 - 0.5 E9/L [facility] Lymphocytes/100 WBC (Bld) 9.0 % Low 14.0 - 50.0 % [facility] Lymphocytes/Leukocyte s Auto (Bld) [Pure # fraction] 0.9 E9/L Low 1.0 - 4.0 E9/L [facility] Monocytes/100 WBC (Bld) 15.1 % High 4.0 - 14.0 % [facility] Monocytes/Leukocytes Auto (Bld) [Pure # fraction] 1.5 E9/L High 0.2 - 1.0 E9/L [facility] Neutrophils/100 WBC (Bld) 70.9 % Normal 36.0 - 75.0 % [facility] Neutrophils/Leukocyte s Auto (Bld) [Pure # fraction] 6.8 E9/L Normal 2.0 - 7.5 E9/L [facility] HEMATOLOGYOrdered By: Bartolo Ashford on 07-08-2023 Erythrocyte distribution width (RBC) [Ratio] 14.4 % High 10.9 - 14.2 % [facility] Hematocrit (Bld) [Volume fraction] 33.3 % Low 34.0 - 46.0 % [facility] Hemoglobin (Bld) [Mass/Vol] 11.0 g/dL Low 12.0 - 16.0 gm/dL [facility] MCH (RBC) [Entitic mass] 29.7 pg Normal 27.0 - 34.0 pg [facility] MCHC (RBC) [Mass/Vol] 33.1 g/dL Normal 31.4 - 36.0 gm/dL [facility] MCV (RBC) [Entitic vol] 89.7 fL Normal 80.0 - 100.0 fL [facility] HemeAutoSS Platelet mean volume (Bld) [Entitic vol] 8.6 fL Normal 6.4 - 10.8 fL [facility] HemeAutoSS Platelets (Bld) [#/Vol] 244.0 E9/L Normal 150.0 - 500.0 E9/L [facility]eAutoSS RBC (Bld) [#/Vol] 3.7 E12/L Low 4.3 - 5.9 E12/L [facility] WBC corrected for nucl RBC Auto (Bld) [#/Vol] 9.7 E9/L Normal 4.0 - 11.0 E9/L [facility] IntraOperative Documentson 0 07-08-2023 IntraOperative Documents [id number]. [id number] Normal [place] Lyteson 07-08-2023 Anion gap [Moles/Vol] 10 mmol/L Normal 6-16 [facility] Comment on above: Performed By: #### 2 [id number], [id number], [id number], [id number], [id number], [id number] ####[place] [address] [place] [address] Chloride [Moles/Vol] 111 mmol/L Normal 101-111 [facility] Comment on above: Performed By: #### 2 [id number], [id number], 4175939, [id number], [id number], [id number] ####[place] [address] [place] [address] CO2 [Moles/Vol] 22 mmol/L Normal 21-31 [facility] Comment on above: Performed By: #### 2 814936, 3302142, 8475593, 2273316, [id number], [id number] ####[place] [address] [place] [address] Potassium [Moles/Vol] 4.2 mmol/L Normal 3.5-5.3 [facility] Comment on above: Performed By: #### 2 708966, 2467618, 3793494, 2573991, [id number], 5010611 ####[place] [address] [place] [address] Sodium [Moles/Vol] 139 mmol/L Normal 135-145 [place] Comment on above: Performed By: #### 2 279075, 4621854, 6515528, 9053069, [id number], 4383807 ####[place] [address] [place] [address] Patient Education - Texton 0 07-08-2023 Patient Education - Text [place], [place] [facility] DISCHARGE INSTRUCTIONS: TOTAL KNEE ARTHROPLASTY INCISION CARE: The bandage may be changed by your home Physical Therapist at 7 days postoperatively and worn an additional 7 days. A new Mepilex bandage should then be placed. The bandage is waterproof, so you may shower at home. Steri-strips (paper tape strips) may be applied to the incision if any slight wound separation is noted. These should remain in place for five days and then they may come off in the shower. Please notify the office if any increase in redness, tenderness, drainage, fever, or wound separation is noted beyond this point. MEDICATIONS: You may resume your home medications at the time of discharge. Arixtra and Lovenox are mild blood thinners that prevent the development of blood clots in the legs. One of these has been used during your hospitalization. After discharge home you should continue the use of two stomach coated baby Aspirin tablets daily with your largest meal for 30 days after home discharge. Please notify your doctor if you have a stomach sensitivity to Aspirin or history of previous stomach ulcers. Pain medication has been prescribed as well. You may continue to use the pain medication every four hours as needed. Any narcotic pain medication can cause side effects including stomach upset, constipation, or light-headedness. You should not drive or operate machinery, or drink alcohol while using the narcotic pain medication. You should not use other pain medications with this prescription pain medication unless further directed by your physician. PHYSICAL THERAPY Continue the range of motion and strengthening exercises initiated by Physical Therapy in the hospital. Continue weight bearing, as ordered, to the operated knee as directed in Physical Therapy. This will be with the use of a walker or crutches initially. Physical therapy as begun in the hospital will continue at home, possibly with the business development assistant of Home Health Physical Therapy or in the hospital as an outpatient. When you have become independent with the physical therapy program, this will then be discontinued as a supervised program and you will be instructed to continue the physical therapy exercises at home. Your exercises are rai to successful rehabilitation. You should gain full extension first, hopefully before hospital discharge, and gain 90 degrees flexion by one month post-op. Do the exercises daily, twice if preferred. DRIVING: Please do not drive for 4-6 weeks pending therapy progress. 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 It is therefore advised not to drive until after your first office visit following surgery. FOLLOW-UP OFFICE VISIT: Cheko Ceja, DO [facility] [address] [place] [address] Reviewed: 11-24 acetaminophen and oxycodone (a SEET a MIN oh fen and OX i KOE done) Endocet 10/325, Endocet 2.5/325, Endocet 5/325, Endocet 7.5/325, Nalocet, Percocet, Prolate What is the most important information I should know about acetaminophen and oxycodone? MISUSE OF OPIOID MEDICINE CAN CAUSE ADDICTION, OVERDOSE, OR . Keep the medication in a place where others cannot get to it. Taking opioid medicine during may cause life-threatening withdrawal symptoms in the . Fatal side effects can occur if you use opioid medicine with alcohol, or with other drugs that cause drowsiness or slow your breathing. Stop taking this medicine and call your doctor right away if you have skin redness or a rash that spreads and causes blistering and peeling. What is acetaminophen and oxycodone? Acetaminophen and oxycodone is a combination medicine used to relieve moderate to severe pain. Acetaminophen and oxycodone contains an opioide medicine and may be habit-forming. Acetaminophen and oxycodone may also be used for purposes not listed in this medication guide. What should I discuss with my healthcare provider before taking acetaminophen and oxycodone? You should not use this medicine if you are allergic to acetaminophen or oxycodone, or if you have: ?? severe asthma or breathing problems; or ? a blockage in your stomach or intestines. Tell your doctor if you have ever had: ?? breathing problems, sleep apnea; ? liver disease; ? a drug or alcohol addiction; ? kidney disease; ? a head injury or seizures; ? urination problems; or ? problems with your thyroid, pancreas, or gallbladder. If you use opioid medicine while you are , your baby could become dependent on the drug. This can cause life-threatening withdrawal symptoms in the baby after it is born. Babies born dependent on opioids may need medical treatment for several weeks. Ask a doctor before using opioid medicine if you are . Tell your doctor if you notice severe drowsiness or slow breathing in the nursing baby. How (more content not included)... Normal [place] Preoperative Documentson Preoperative Documents [id number]. [id number] Normal [place] Progress Note-Physicianon Progress Note-Physician Patient: ROSELIA MILES Age: 82 years Sex: Female : 1940 Associated Diagnoses: None Author: Cheko Ceja DO POD 1 s/p R TKA got up with PT yesterday. rodney po. no CP/SOB/dizziness. pain well controlled R LE: dressings dry, comp supple, ankle PF/DF intact, brisk cap refill, neg homans WBC 9.7 hgb 11 Hct 33.3 plt 244 cr 1.0 post op xrays reviewed yesterday. prosthesis in satisfactory position Plan: - D/C home after PT Objective Vital Signs 07/08/2023 3:30 EST Temperature Oral 36.8 DegC Heart Rate Monitored 73 bpm Respiratory Rate Monitored 16 br/min Systolic Blood Pressure 131 mmHg SpO2 96 % Normal [place] Comment on above: Result Comment: Elec tronically Signed By: Cheko Ceja DO\.br\Date and Time Signed: 07/08/23 07:51 EST eGFRon 07-08-2023 eGFR 55 mL/min/1.73 m2 Low >=59 [place] Comment on above: Order Comment: Order added by Discern Expert. Performed By: #### 2 [id number], 0499373, 1933892, 1933306, [id number], 5374871 ####[place] [address] [place] [address] ABO/Rhon 07-07-2023 ABO/Rh Positive Invalid Interpretation Code [facility] Comment on above: Performed By: #### 2 875278, 3519968, 6968778, 46275755, 8006939, [id number] #### [facility] [address] [place] [address] ABO/Rh History Checkon 07-07 ABO/Rh History Check Verified Hx Blood Type Normal [place] Comment on above: Performed By: #### 2 521249, 9167090, 5987848, 94525124, 9806990, 6589170 #### [facility] [address] [place] [address] ABSCon 07-07-2023 ABSC Gel Interp Negative Normal [facility] Comment on above: Performed By: #### 2 882590, 1975053, 0039021, 90543913, 0152415, 4556737 #### [facility] [address] [place] [address] BLOOD BANKOrdered By: Ariana gillespie on 07-07-2023 ABO/Rh Interp Positive Invalid Interpretation Code [facility] BB Subsection ABSC Gel Interp Negative (07/07/23 6:17 AM) Normal [facility] BB Subsection Blood Bank ID#on 07-07-2023 BBID# [id number] Invalid Interpretation Code [place] Comment on above: Performed By: #### 2 611840, 7355085, 6331297, 34983563, 8999275, 9638090 #### [facility] [address] [place] [address] Consent for Treatmenton Consent for Treatment [id number] 0TIFF Normal [place] H&P Updateon 07-07-2023 H&P Update [id number]#1. 00TIFF Normal [place] Inpatient Clinical Summaryon 07-07-2023 Inpatient Clinical Summary [address] [address] Clinical Summary Person Information: Name: ROSELIA MILES Age: 82 Years : 1940 Sex: Female PCP: ALEXANDRO ROSARIO DO Marital Status: Phone: [phone] Race: White Ethnicity: Non- or Language: Belarusian Visit Id: Visit Reason: OA RIGHT KNEE Speciality: Acuity: Enc Type: Ambulatory/Same Day Surgery Med Service: Medical Arrival: 07/07/2023 05:39:33 Discharge: Dispo Type: Address: [address] [place] [address] [place] [phone] Provider Notes: Diagnosis: Degenerative arthritis of right knee Problems Active Hemorrhoids Colon polyp Family history of rectal cancer History of colon polyps Smoking Status: Functional Status: Sensory Deficits: History of Falls: Mobility Assistance Prior to Admission: ADLs: Minimal assistance Current Level of Assistance for Self-Care/Mobility: Cognitive Status: Allergies predniSONE (Itching) cortisone (Itching) (Erythema) Measurements: Height: Weight: Blood Pressure: 149 mmHg / 72 mmHg BMI: Procedures No Procedures Documented Immunizations No Immunizations Documented This Visit Final Med List: acetaminophen-oxycodon e (Percocet 5 mg-325 mg oral tablet) 1-2 tab(s) Oral q4hr. Refills: 0. aspirin (aspirin 81 mg Oral EC Tab) 2 Tablets By Mouth every day for 30 Days. Refills: 0. calcium-vitamin D (Calcium 600+D) 1,200 Milligram By Mouth every day. celecoxib (CeleBREX 100 mg Cap) 1 Capsules By Mouth 2 times a day as needed for pain. Refills: 2. cephalexin (Keflex 500 mg Cap) 1 Capsules By Mouth every 8 hours for 7 Days. Refills: 0. docusate (Colace 100 mg Cap) 1 Capsules By Mouth 2 times a day as needed for constipation. Refills: 0. multivitamin (Multiple Vitamins Tab) 1 Tablets By Mouth every day. pravastatin 20 Milligram By Mouth every day. Care Team Members: Attending Physician: Cheko Ceja DO Consulting Physician: Referring Physician: Cheko Ceja DO Follow up: With: Address: When: [place] [address] Business (1) 07/22/2023 2:30 PM With: Address: When: ALEXANDRO ROSARIO [address] [place], [place] [id number] Business (1) Patient Education Information: Nando Ceja - Total Knee Arthroplasty (Custom) [facility] Inpatient Patient Summaryon 07-07-2023 Inpatient Patient Summary [address] [address] Patient Discharge Instructions PERSON INFORMATION Name: GINGER ROSELIA Date of : 1940 Current Date: 07/07/2023 15:20:00 PHYSICIANS Admitting Physician: Cheko Ceja DO Primary Care Physician: ALEXANDRO ROSARIO DO PCP Comment: Discharge Diagnosis: Degenerative arthritis of right knee Condition at Discharge: Improved ROSELIA MILES has been given the following list of follow-up instructions, prescriptions, and patient education materials: PATIENT FOLLOW-UP INFORMATION Diet: Discharge Activity: Discharge Restrictions: Wound Care Instructions: Remove Your Dressing In Days Call Your Doctor For: IF UNABLE TO CONTACT YOUR PHYSICIAN AND YOU FEEL IT IS AN EMERGENCY, GO TO THE NEAREST EMERGENCY ROOM OR CALL 911 Home Treatment: Devices/Equipment: Special Services: Additional Instructions: Primary Care Physician to provide the following pending test results: None Follow up: With: Address: [facility] [place] [address] Business (1) 07/22/2023 2:30 PM With: Address: When: ALEXANDRO ROSARIO [address] [place] [address] Business (1) In the event that this physician does not participate in your insurance network, please consult with your insurance company to find a nearby participating provider. Comment: GINGER Atkins CAROLYN, have received the attached patient education materials/instructions and have verbalized understanding: Patient Signature Date Clinican/Nurse Signature ___ Date HERE ARE THE MEDICATION CHANGES THAT OCCURRED DURING YOUR HOSPITAL STAY New Medications [id number] [address] [place] [phone], [phone] acetaminophen-oxycodon e (Percocet 5 mg-325 mg oral tablet) 1-2 tab(s) Oral q4hr. Refills: 0. Last Dose: ___Next Dose: ___ aspirin (aspirin 81 mg Oral EC Tab) 2 Tablets By Mouth every day for 30 Days. Refills: 0. Last Dose: ___Next Dose: ___ celecoxib (CeleBREX 100 mg Cap) 1 Capsules By Mouth 2 times a day as needed for pain. Refills: 2. Last Dose: ___Next Dose: ___ cephalexin (Keflex 500 mg Cap) 1 Capsules By Mouth every 8 hours for 7 Days. Refills: 0. Last Dose: ___Next Dose: ___ docusate (Colace 100 mg Cap) 1 Capsules By Mouth 2 times a day as needed for constipation. Refills: 0. Last Dose: ___Next Dose: ___ Medications to Continue with No Changes Other Medications calcium-vitamin D (Calcium 600+D) 1,200 Milligram By Mouth every day. Last Dose: ___Next Dose: ___ multivitamin (Multiple Vitamins Tab) 1 Tablets By Mouth every day. Last Dose: ___Next Dose: ___ pravastatin 20 Milligram By Mouth every day. Last Dose: ___Next Dose: ___ Comment: MEDICATION LIST PROVIDED FOR YOU IS A LIST OF YOUR CURRENT MEDICATIONS. PLEASE CARRY THIS WITH YOU AT ALL TIMES. acetaminophen-oxycodon e (Percocet 5 mg-325 mg oral tablet) 1-2 tab(s) Oral q4hr. Refills: 0. aspirin (aspirin 81 mg Oral EC Tab) 2 Tablets By Mouth every day for 30 Days. Refills: 0. calcium-vitamin D (Calcium 600+D) 1,200 Milligram By Mouth every day. celecoxib (CeleBREX 100 mg Cap) 1 Capsules By Mouth 2 times a day as needed for pain. Refills: 2. cephalexin (Keflex 500 mg Cap) 1 Capsules By Mouth every 8 hours for 7 Days. Refills: 0. docusate (Colace 100 mg Cap) 1 Capsules By Mouth 2 times a day as needed for constipation. Refills: 0. multivitamin (Multiple Vitamins Tab) 1 Tablets By Mouth every day. pravastatin 20 Milligram By Mouth every day. Pharmacy Information: [facility] [place] Comment: PATIENT EDUCATION INFORMATION Instructions: [place], [place] [facility] DISCHARGE INSTRUCTIONS: TOTAL KNEE ARTHROPLASTY INCISION CARE: The bandage may be changed by your home Physical Therapist at 7 days postoperatively and worn an additional 7 days. A new Mepilex bandage should then be placed. The bandage is waterproof, so you may shower at home. Steri-strips (paper tape strips) may be applied to the incision if any slight wound separation is noted. These should remain in place for five days and then they may come off in the shower. Please notify the office if any increase in redness, tenderness, drainage, fever, or wound separation is noted beyond this point. MEDICATIONS: You may resume your home medications at the time of discharge. Arixtra and Lovenox are mild blood thinners that prevent the development of blood clots in the legs. One of th (more content not included)... Normal [place] Main OR Intraoperative Recor don 07-07-2023 Main OR Intraoperative Record IntraOp Document Type FT Summary Primary Physician: Cheko Ceja DO Finalized Date/Time: 07/07/23 13:32:28 Pt. Name: ROSELIA MILES Dewayne/Sex: 1940 Female Med Rec #: [id number] Physician: Cheko Ceja DO Financial #: [id number] Pt. Type: A Room/Bed: [place] [address] Admit/Disch: 07/07/23 05:39:33 - Institution: Case Times FT Entry 1 Patient Times In Room 07/07/23 07:07:00 Out Room 07/07/23 09:22:00 Procedure Times Start 07/07/23 07:59:00 Stop 07/07/23 09:17:00 Anesthesia Times Start 07/07/23 07:07:00 Stop 07/07/23 09:22:00 Block Timeout w/ 07/07/23 06:57:00 Anesthesia Last Modified By: Dominique Suggs 07/07/23 09:28:00 General Comments: BLOCK TIME OUT AT 0657 WITH AND FRANCES Morris,RN ASSISTING, HEART RATE 70 BPM AND SPO2 97% ON ROOM AIR, PATIENT TOLERATED WELL THEN AFTER BLOCK TRANSPORTED TO OR ON CART BY FRANCES Morris RN.RD Mcdonald RN. 06/06/24 Chart opened to review and send charges [facility] Case Attendance FT Entry 1 Entry 2 Entry 3 Case Attendee Cheko Ceja DO, DNP, ÁNGEL, Pompa Russell Reyes Role Performed Surgeon - Primary JOB COMPOSITOR SENIOR LANDSCAPE ARCHITECT/SA Time In 07/07/23 07:07:00 07/07/23 07:07:00 07/07/23 07:07:00 Time Out 07/07/23 09:22:00 07/07/23 09:22:00 07/07/23 09:22:00 Procedure KNEE TOTAL ROBOT KNEE TOTAL ROBOT KNEE TOTAL ROBOT ARTHROPLASTY(Right) ARTHROPLASTY(Right) ARTHROPLASTY(Right) Comments IS SUPERVISING Last Modified By: Dominique Suggs Kelsie E Burgderfer, Kelsie E 07/07/23 09:28:01 07/07/23 09:28:01 07/07/23 09:28:01 Entry 4 Entry 5 Entry 6 Case Attendee Dominique Suggs RN, Kathy Alcazar Role Performed Cnc Operator Programmer - Primary Cnc Operator Programmer - Primary Scrub - Primary Time In 07/07/23 07:07:00 07/07/23 07:07:00 07/07/23 07:07:00 Time Out 07/07/23 09:22:00 07/07/23 09:22:00 07/07/23 09:22:00 Procedure KNEE TOTAL ROBOT KNEE TOTAL ROBOT KNEE TOTAL ROBOT ARTHROPLASTY(Right) ARTHROPLASTY(Right) ARTHROPLASTY(Right) Comments Last Modified By: Dominique Suggs Kelsie E Burgderfer, Kelsie E 07/07/23 09:28:01 07/07/23 09:28:01 07/07/23 09:28:01 Entry 7 Entry 8 Case Attendee Eyad Stafford RN, Daniela Medina Role Performed Staff - Other Staff - Other Time In 07/07/23 07:07:00 07/07/23 07:07:00 Time Out 07/07/23 09:22:00 07/07/23 07:10:00 Procedure KNEE TOTAL ROBOT KNEE TOTAL ROBOT ARTHROPLASTY(Right) ARTHROPLASTY(Right) Comments 2ND SCRUB TRANSPORTED TO OR AND ASSISTED WITH BLOCK Last Modified By: Dominique Suggs Kelsie E 07/07/23 09:28:01 07/07/23 09:28:01 General Comments: KANCHAN MCNAIR, IN ATTENDANCE.MIRTHA ASCENCIO. Perioperative Protocols FT Pre-Care Text: Implements protective measures prior to operative or invasive procedure, confirms identity before the operative or invasive procedure, verifies operative procedure, surgical site, and laterality Entry 1 Procedure(s) KNEE TOTAL ROBOT Patient Identity Birthday, ID Band ARTHROPLASTY(Right) Verified (select at Check, Patient least 2): Participation Consents / H and P Anesthesia Consent, Operative Site Present Verified HandP, Surgery/Procedure Marking Verified Consent, Transfusion Consent Surgical Site Yes Laterality Verified Yes Verified Procedure Verified Yes Correct Patient Yes Position Verified Availability Equipment, Implant, Prep Dry n/a Verified (If Medication Applicable) PreOp Antibiotic Yes Time Out Cheko Ceja DO, Given Participants Chicho ANN, ÁNGEL, Queen Edelmira, Russell Reyes Burgderfer, Kelsie E, Crosby RN, Fady Nava Sydney A, Votino, Adam A Time Out Complete 07/07/23 07:57:00 Outcomes Met? Yes Last Modified By: Dominique Suggs 07/07/23 07:58:07 Post-Care Text: The patient is free from signs and symptoms of injury caused by extraneous objects Allergy Information FT Pre-Care Text: Verifies allergies Entry 1 Allergies Reviewed? Yes Allergies Reviewed Self/Patient With Outcomes Met? Yes Last Modified By: Dominique Suggs 07/07/23 07:03:18 Post-Care Text: The patient received appropriate medication(s) safely administered during the perioperative period Surgical Procedures FT Entry 1 Procedure Description Procedure KNEE TOTAL ROBOT Modifiers Right ARTHROPLASTY Surgeon Description RIGHT TOTAL KNEE ARTHROPLASTY WITH ROBOTIC ASSIST Primary Procedure Yes Primary Surgeon Cheko Ceja DO Start 07/07/23 07:59:00 Stop 07/07/23 09:17:00 Anesthesia Type General Surgical Service Orthopedics Wound Class 1 - Clean Last Modified By: Argentina Eldridge CST 07/07/23 13:31:14 General Case Data FT Pre-Care Text: Classifies surgical wound, implements aseptic technique, initiates traffic control Entry 1 Case Information OR OR 5 FT Case Level Level 6 Wound Class 1 - [facility] ASA Class 3 Preop Diagnosis OSTEOARTHRITIS RIGHT Postop Same As Preo (more content not included)... Normal [facility] Main OR PACU I [facility] Main OR PACU I Record PACU Phase I Docum ent Type FT Summary Primary Physician: Cheko Ceja DO Finalized Date/Time: 07/07/23 10:25:01 Pt. Name: ROSELIA MILES Dewayne/Sex: 1940 Female Med Rec #: [id number] Physician: Cheko Ceja DO Financial #: [id number] Pt. Type: A Room/Bed: [place] [address] Admit/Disch: 07/07/23 05:39:33 - Institution: Case Times PACU I FT Pre-Care Text: Identifies barriers to communication and implements measures to provide psychological support Develops individualized plan of care, and ensures continuity of care Maintains patient's dignity and privacy, and maintains patient confidentiality Identifies and reports philosophical, cultural, and spiritual beliefs and values Identifies individual values and wishes concerning care Implements aseptic technique, and administers prescribed antibiotic therapy and immunizing agents as ordered Evaluates postoperative tissue perfusion Implements thermoregulation measures, and monitors body temperature Evaluates postoperative respiratory status Evaluates postoperative cardiac status Evaluates postoperative neurological status Assesses pain control, collaborated in initiating patient-controlled analgesia and implements alternative methods of pain control Verifies allergies, administers prescribed medications and solutions, evaluates response to medications Entry 1 In PACU I 07/07/23 09:25:00 Discharge from PACU 07/07/23 09:55:00 I Outcomes Met? Yes Last Modified By: Jolynn Becerra RN 07/07/23 10:24:40 Post-Care Text: The patient demonstrates knowledge of the expected response to the operative or invasive procedure The patient's care is consistent with the individualized perioperative plan of care The patient's right to privacy is maintained The patient's value system, lifestyle, ethnicity, and culture are considered, respected, and incorporated into the perioperative plan of care The patient participates in decisions affecting his or her perioperative plan of care The patient is free from signs and symptoms of infection The patient has wound/tissue perfusion consistent with or improved from baseline levels established preoperatively The patient is at or returning to normothermia at the conclusion of the immediate postoperative period The patient's respiratory function is consistent with or improved from baseline levels established preoperatively The patient's cardiovascular status is consistent with or improved from baseline levels established preoperatively The patient's cardiovascular status is consistent with or improved from baseline levels established preoperatively The patient demonstrates and/or reports adequate pain control throughout the perioperative period The patient received appropriate medication(s), safely administered during the perioperative period Acuity Level PACU I FT Entry 1 Start Time 07/07/23 09:25:00 Stop Time 07/07/23 09:55:00 Acuity Level Acuity Level I Last Modified By: Jolynn Becerra RN 07/07/23 10:24:56 Finalized By: Jolynn Becerra RN Document Signatures Signed By: Jolynn Becerra RN 07/07/23 10:25 Normal [facility] Main OR Preoperative Recordo n 07-07-2023 Main OR Preoperative Record PreOp Document Type FT Summary Primary Physician: Cheko Ceja DO Finalized Date/Time: 07/07/23 07:44:25 Pt. Name: GINGERROSELIA/Sex: 1940 Female Med Rec #: [id number] Physician: Cheko Ceja DO Financial #: [id number] Pt. Type: A Room/Bed: 11/02 Admit/Disch: 07/07/23 05:39:33 - Institution: Case Times PreOp FT Pre-Care Text: Verifies consent for planned procedure, identifies individual values and wishes concerning care, includes family members in perioperative teaching Entry 1 Patient Times. In Pre Surgery 07/07/23 06:00:00 Out Pre Surgery 07/07/23 06:55:00 Outcomes Met? Yes Last Modified By: Dominique Suggs 07/07/23 07:44:19 Post-Care Text: The patient participates in decisions affecting his or her perioperative plan of care Finalized By: Dominique Suggs Document Signatures Signed By: Dominique Suggs 07/07/23 07:44 Dominique Suggs 07/07/23 07:44 Normal [place] Monitor [facility] 07-07-2023 Monitor Record [id number]. 00TIFF [facility] Monitor Record [id number]. 00TIFF [facility] Operative Reporton Operative Report Patient: ROSELIA MILES Age: 82 years Sex: Female : 1940 Associated Diagnoses: None Author: Cheko Ceja DO DATE OF SURGERY: 07/07/2023 SURGEON: Cheko Ceja D.O. CRATE LINER: YENNY Quinones PREOPERATIVE DIAGNOSIS: Advanced degenerative osteoarthrosis, right knee POSTOPERATIVE DIAGNOSIS: Advanced degenerative osteoarthrosis, right knee OPERATION: Right total knee arthroplasty utilizing Architectural DailyO robotic arm assistance ANESTHESIA: Spinal + regional block TRUCK SUPERVISOR: Queen Chicho CRNA and Vega Pop MD IMPLANTS USED: [place] [employer] Total Knee System 1. size 5 cruciate retaining cementless femur 2. Size 10 mm X3 CS polyethylene 3. Size 5 Tritanium cementless tibial baseplate 4. Size 32 mm asymmetric Tritanium cementless patella OPERATIVE INDICATIONS: Roselia is an 82-year-old female who has had persistent right knee pain despite numerous conservative measures. Her pain interferes with her activities of daily living, ability to sleep at night, and quality of life. She agreed to proceed with the above procedure after a discussion of the risks, benefits, complications, alternatives, and expectations. Please see office notes for further details. The patient's surgery was preplanned utilizing CT scan and Storehouse software. This included the planned implant sizes and positions, bone resection, and ligament balancing. Modifications to the plan were made intraoperatively as appropriate. PROCEDURE: The correct operative site was identified and marked in the preoperative holding area. The patient was administered intravenous antibiotics in accordance with SCIP Protocol. She was also given a gram of tranexamic acid intravenously about 15 minutes prior to incision. She was transported to the Regional Anesthetic Block Room and administered a regional anesthetic nerve block by the anesthesiologist. I requested the nerve block to assist with intraoperative and postoperative pain control. She was transported to the Operating Room and administered a spinal anesthetic. She was placed into the supine position and a well padded tourniquet was applied to the operative upper thigh. The right upper extremity was secured across the patient's torso. The operative lower extremity was then prepped and draped in the usual sterile fashion. The foot was placed into a padded villela and secured in the [employer] knee positioner. Surgical time-out was performed with all required personnel present. The limb was exsanguinated with an Esmarch. Tourniquet was inflated to 300 mm Hg. A longitudinal incision over the anterior knee was made. Medial and lateral skin flaps were developed. Dissection was carried down through the subcutaneous layers. Medial parapatellar arthrotomy was performed and normal appearing joint fluid was encountered and suctioned. Irrisept solution was poured into the joint. The intermeniscal ligament was then cut and soft tissue at the medial tibial plateau was peeled off of the bone with Bovie electrocautery. The fat pad was sharply excised. The patella was everted and the knee was flexed. Tourniquet was deflated at 7 minutes and adequate perfusion was noted to return to the extremity. Areas of active bleeding were cauterized with the Bovie and Aquamantys. The tibial pins for the tibial array were placed approximately 5 finger breadths distal to the tibial tubercle along the medial tibial shaft. The tibial pins were placed outside of the incision through 2 small stab incisions. The tibial array was placed onto the pins and secured. The distal femoral pins for the femoral array were placed in the medial femoral condyle. The femoral array was affixed to the pins. The registration device was then placed into the distal femur just distal to the array pins along the medial femoral condyle. The tibial registration device was placed along the medial tibia within the surgical wound distal to the planned tibial resection. The hip center, medial and lateral malleoli were registered. Registration points along the distal femur and proximal tibia were captured. Osteophytes along the distal femur and proximal tibia were removed with a rongeur. Range of motion of the knee was then assessed with the computer. The patient had 4 degree flexion contracture and 10 degrees of varus. Preliminary ligament balancing was performed with the tensioning spoons in both flexion and extension and these values were captured by the computer. Adjustments to the planned resection were made to balance the ligaments. The self-retaining medial and lateral retractors were then placed and secured to the leg villela. Bone resection was then performed with computer guidance using the saw attached to the Storehouse robotic arm. Femoral cuts were made including anterior, posterior, and chamfer cuts. The tibial cut was then made in the same fashion. The resected bone fragments were removed with oste (more content not included)... [facility] Comment on above: Result Comment: Elec tronically Signed By: Cheko Ceja DO\.br\Date and Time Signed: 07/07/23 15:17 EST XR Knee 1 or 2 Views Righton 07-07-2023 XR Knee 1 or 2 Views Right Exam Date/Time: 07/07/2023 09:38 EST Reason for Exam: Post-op evaluation;Other (please specify) Report IMPRESSION: NEGATIVE POSTOPERATIVE RIGHT KNEE. CLINICAL HISTORY: Post-op evaluation COMPARISON: April 20, 2023. FINDINGS: 2 views of the right knee shows interval placement of bipolar noncemented right knee replacement. No fracture. No abnormal lucency bone prosthetic interface. Ordering Provider: Cheko Ceja FINAL REPORT Dictated: 07/07/2023 1:00 pm Alexandro Hurst MD Signed (Electronic Signature): 07/07/2023 1:00 pm Signed by: Alexandro Hurst MD Transcribed by: JOSE ARMANDO Technologist: DANNA Technical Comments Radiation Dose: Kar in mGy = . DAP = . Normal [place] Consent for Procedure/Surger yon 07-06-2023 Consent for Procedure/Surgery [id number]. 00TIFF [facility] C Urineon 06-24-2023 Bacteria identified Cx Nom (U) Microbiology PROCEDURE: Urine Culture [R1] SOURCE: U CleanCatch BODY SITE: COLLECTED DATE/TIME: 06/22/2023 14:40 EST RECEIVED DATE/TIME: 06/22/2023 17:44 EST START DATE/TIME: 06/22/2023 17:44 EST FREE TEXT SOURCE: Cheko Ceja DO, DO, Jason A FINAL REPORTS Final Report [] Verified Date/Time: 06/24/2023 08:39 EST No growth at 2 days. Performing Locations R1: [facility] at[facility], [address] [place] [address], [id number] , , [facility] Comment on above: Performed By: #### 2 [id number], 4175968, 6848940, 33751093, 8919907, 4491923 #### [facility] [address] [place] [address] XR Chest 2 Viewson 3 XR Chest 2 Views Exam Date/Time: 06/22/2023 15:24 EST Reason for Exam: P.A.T. Report IMPRESSION: NO EVIDENCE OF ACTIVE CHEST DISEASE. CLINICAL HISTORY: P.A.T.. COMPARISON: 04/20/2023. COMMENT: The heart is within normal limits in size. There are left mediastinal and left hilar granulomatous calcifications. The lungs appear clear. No infiltration nor pleural effusion is evident. There are surgical clips in the left axilla. No significant change is noted when compared to the prior exam. Ordering Provider: Pop Ahmad FINAL REPORT Dictated: 06/23/2023 10:41 am Cristobal Mishra M.D. Signed (Electronic Signature): 06/23/2023 10:41 am Signed by: Cristobal Mishra M.D. Transcribed by: JOSE ARMANDO Technologist: DANNA Technical Comments Radiation Dose: Ka,r in mGy = . DAP = . Normal [facility] ABO/Rh Retypeon 06-22-2023 ABO/Rh Retype Interp Positive Invalid Interpretation Code [facility] Comment on above: Performed By: #### 2 067441, 3452153, 0750781, 58820178, 6697851, 7901371 #### [facility] [address] [place] [address] Auto Diffon 06-22-2023 Basophils/100 WBC (Bld) 1.0 % Normal 0.0-2.0 [facility] Comment on above: Order Comment: Order Added by Discern Expert. Performed By: #### 2 661779, 1504830, 2922143, 75485580 ####[facility] [address] [place] [address] Basophils/Leukocytes Auto (Bld) [Pure # fraction] 0.1 E9/L Normal 0.0-0.2 [facility] Comment on above: Order Comment: Order Added by Discern Expert. Performed By: #### 2 230647, 7095995, 5073888, 71813795 ####[place] [address] [place] [address] Eosinophils/100 WBC (Bld) 9.3 % High 0.0-8.0 [facility] Comment on above: Order Comment: Order Added by Discern Expert. Performed By: #### 2 385283, 1539700, 1109698, 61618528 ####[address] [address] Eosinophils/Leukocyte s Auto (Bld) [Pure # fraction] 0.8 E9/L High 0.0-0.5 [facility] Comment on above: Order Comment: Order Added by Discern Expert. Performed By: #### 2 808410, 3378850, 0256381, 55213165 ####[address] [address] Lymphocytes/100 WBC (Bld) 25.8 % Normal 14.0-50.0 [facility] Comment on above: Order Comment: Order Added by Discern Expert. Performed By: #### 2 815053, 7434971, 2036741, 10894661 ####[address] [address] Lymphocytes/Leukocyte s Auto (Bld) [Pure # fraction] 2.1 E9/L Normal 1.0-4.0 [facility] Comment on above: Order Comment: Order Added by Discern Expert. Performed By: #### 2 996319, 0777267, 8748276, 69911881 ####[address] [address] Monocytes/100 WBC (Bld) 9.0 % Normal 4.0-14.0 [facility] Comment on above: Order Comment: Order Added by Discern Expert. Performed By: #### 2 442030, 9102047, 9761927, 05607527 ####[address] [address] Monocytes/Leukocytes Auto (Bld) [Pure # fraction] 0.7 E9/L Normal 0.2-1.0 [facility] Comment on above: Order Comment: Order Added by Discern Expert. Performed By: #### 2 708334, 5342480, 4916096, 10105038 ####[facility] [address] [place] [address] Neutrophils/100 WBC (Bld) 54.9 % Normal 36.0-75.0 [facility] Comment on above: Order Comment: Order Added by Discern Expert. Performed By: #### 2 646255, 0496151, 2056670, 68006815 ####[facility] [address] [place] [address] Neutrophils/Leukocyte s Auto (Bld) [Pure # fraction] 4.5 E9/L Normal 2.0-7.5 [facility] Comment on above: Order Comment: Order Added by Discern Expert. Performed By: #### 2 482337, 8292623, 1668684, 76632090 ####[address] [place] [address] BLOOD BANKOrdered By: Daren Macias on 06-22-2023 ABO/Rh Retype Interp Positive Invalid Interpretation Code [facility] BB Subsection BMPon 06-22-2023 Anion gap [Moles/Vol] 9 mmol/L Normal 6-16 [facility] Comment on above: Performed By: #### 2 324305, 0180637, 6348412, 09725261 ####[facility] [address] [place] [address] BUN/Creat Ratio 19 No Units Normal 10-20 [facility] Comment on above: Performed By: #### 2 675326, 9079671, 2354727, 06558739 ####[facility] [address] [place] [address] Calcium [Mass/Vol] 9.3 mg/dL Normal 8.9-11.1 [facility] Comment on above: Performed By: #### 2 928517, 8746249, 4623217, 61181805 ####[facility] [address] [place] [address] Chloride [Moles/Vol] 108 mmol/L Normal 101-111 [facility] Comment on above: Performed By: #### 2 217013, 0609146, 4225953, 31181891 ####[facility] [address] [place] [address] CO2 [Moles/Vol] 26 mmol/L Normal 21-31 [facility] Comment on above: Performed By: #### 2 441367, 9364857, 1552759, 82339864 ####[facility] [address] [place] [address] Creatinine [Mass/Vol] 1.0 mg/dL Normal 0.5-1.3 [facility] Comment on above: Performed By: #### 2 802161, 4877634, 2716778, 81513342 ####[facility] [address] [place] [address] Glucose [Mass/Vol] 76 mg/dL Normal 55-199 [facility] Comment on above: Performed By: #### 2 769196, 2084208, 2996648, 54342734 ####[facility] [address] [place] [address] Potassium [Moles/Vol] 4.2 mmol/L Normal 3.5-5.3 [facility] Comment on above: Performed By: #### 2 638469, 4711203, 4724563, 95830230 ####[facility] [address] [place] [address] Sodium [Moles/Vol] 139 mmol/L Normal 135-145 [facility] Comment on above: Performed By: #### 2 818416, 4759514, 6047126, 67782846 ####[facility] [address] [place] [address] Urea nitrogen [Mass/Vol] 19 mg/dL Normal 5-21 [facility] Comment on above: Performed By: #### 2 684727, 7835154, 5883338, 12428854 ####[address] [place] [address] CBC w/ Auto Diffon Erythrocyte distribution width (RBC) [Ratio] 14.0 % Normal 10.9-14.2 [facility] Comment on above: Performed By: #### 2 417349, 9671139, 9636033, 99392350 ####[address] [address] Hematocrit (Bld) [Volume fraction] 36.8 % Normal 34.0-46.0 [facility] Comment on above: Performed By: #### 2 088196, 5225768, 9825993, 45524234 ####[address] [address] Hemoglobin (Bld) [Mass/Vol] 12.3 g/dL Normal 12.0-16.0 [facility] Comment on above: Performed By: #### 2 947144, 0202063, 2130041, 78285144 ####[address] [address] MCH (RBC) [Entitic mass] 30.2 pg Normal 27.0-34.0 [facility] Comment on above: Performed By: #### 2 992440, 9855679, 1386739, 05650495 ####[address] [address] MCHC (RBC) [Mass/Vol] 33.3 g/dL Normal 31.4-36.0 [facility] Comment on above: Performed By: #### 2 990659, 4205114, 1573617, 41379082 ####[address] [address] MCV (RBC) [Entitic vol] 90.6 fL Normal 80.0-100.0 [facility] Comment on above: Performed By: #### 2 091193, 7643959, 8192510, 74801778 ####[address] [address] Platelet mean volume (Bld) [Entitic vol] 9.4 fL Normal 6.4-10.8 [facility] Comment on above: Performed By: #### 2 088977, 2346260, 2685716, 91538392 ####[facility] [address] [place] [address] Platelets (Bld) [#/Vol] 327.0 E9/L Normal 150.0-500.0 [facility] Comment on above: Performed By: #### 2 377328, 5255653, 9485720, 33889422 ####[facility] [address] [place] [address] RBC (Bld) [#/Vol] 4.1 E12/L Low 4.3-5.9 [facility] Comment on above: Performed By: #### 2 470456, 6070760, 0378795, 67217458 ####[facility] [address] [place] [address] WBC corrected for nucl RBC Auto (Bld) [#/Vol] 8.3 E9/L Normal 4.0-11.0 [facility] Comment on above: Performed By: #### 2 246028, 5439620, 1787996, 85120273 ####[facility] [address] [place] [address] CHEMISTRYOrdered By: SYSTEM SYSTEM on 06-22-2023 Anion gap [Moles/Vol] 9 mmol/L Normal 6 - 16 mEq/L Rem[facility] Chem Calcium [Mass/Vol] 9.3 mg/dL Normal 8.9 - 11. 1 mg/dL [facility] Chem Chloride [Moles/Vol] 108 mmol/L Normal 101 - 1 11 mmol/L [facility] Chem CO2 [Moles/Vol] 26 mmol/L Normal 21 - 31 mmol/L [facility] Chem Creatinine [Mass/Vol] 1.0 mg/dL Normal 0.5 - 1.3 mg/dL Rem[facility] Chem eGFR 55 mL/min/1.73 m2 Low >=59mL/min / 1.73 m2 Rem[facility] Chem Glucose [Mass/Vol] 76 mg/dL Normal 55 - 199 mg/dL [facility] Chem Potassium [Moles/Vol] 4.2 mmol/L Normal 3.5 - 5.3 mmol/L [facility] Chem Sodium [Moles/Vol] 139 mmol/L Normal 135 - 145 mmol/L [facility] Chem Urea nitrogen [Mass/Vol] 19 mg/dL Normal 5 - 21 mg/dL [facility] Chem Urea nitrogen/Creatinine [Mass ratio] 19 mg/mg Normal 10 - 20 Rem[facility] Chem Consent for Treatmenton 06-04 Consent for Treatment [id number] 0TIFF Normal [facility] HEMATOLOGYOrdered By: SYSTEM SYSTEM on 06-22-2023 Basophils/100 WBC (Bld) 1.0 % Normal 0.0 - 2.0 % [facility] HemeAutoSS Basophils/Leukocytes Auto (Bld) [Pure # fraction] 0.1 E9/L Normal 0.0 - 0.2 E9/L [facility]eAutoSS Eosinophils/100 WBC (Bld) 9.3 % High 0.0 - 8.0 % [facility] HemeAutoSS Eosinophils/Leukocyte s Auto (Bld) [Pure # fraction] 0.8 E9/L High 0.0 - 0.5 E9/L [facility]eAutoSS Lymphocytes/100 WBC (Bld) 25.8 % Normal 14.0 - 50.0 % [facility] HemeAutoSS Lymphocytes/Leukocyte s Auto (Bld) [Pure # fraction] 2.1 E9/L Normal 1.0 - 4.0 E9/L [facility]eAutoSS Monocytes/100 WBC (Bld) 9.0 % Normal 4.0 - 14.0 % [facility]eAutoSS Monocytes/Leukocytes Auto (Bld) [Pure # fraction] 0.7 E9/L Normal 0.2 - 1.0 E9/L [facility]eAutoSS Neutrophils/100 WBC (Bld) 54.9 % Normal 36.0 - 75.0 % [facility]eAutoSS Neutrophils/Leukocyte s Auto (Bld) [Pure # fraction] 4.5 E9/L Normal 2.0 - 7.5 E9/L [facility] HemeAutoSS HEMATOLOGYOrdered By: Daren Macias on 06-22-2023 Erythrocyte distribution width (RBC) [Ratio] 14.0 % Normal 10.9 - 14.2 % [facility]eAutoSS Hematocrit (Bld) [Volume fraction] 36.8 % Normal 34.0 - 46.0 % [facility]eAutoSS Hemoglobin (Bld) [Mass/Vol] 12.3 g/dL Normal 12.0 - 16.0 gm/dL [facility] HemeAutoSS MCH (RBC) [Entitic mass] 30.2 pg Normal 27.0 - 34.0 pg [facility]eAutoSS MCHC (RBC) [Mass/Vol] 33.3 g/dL Normal 31.4 - 36.0 gm/dL [facility]eAutoSS MCV (RBC) [Entitic vol] 90.6 fL Normal 80.0 - 100.0 fL [facility]eAutoSS Platelet mean volume (Bld) [Entitic vol] 9.4 fL Normal 6.4 - 10.8 fL [facility]eAutoSS Platelets (Bld) [#/Vol] 327.0 E9/L Normal 150.0 - 500.0 E9/L [facility] HemeAutoSS RBC (Bld) [#/Vol] 4.1 E12/L Low 4.3 - 5.9 E12/L [facility] HemeAutoSS WBC corrected for nucl RBC Auto (Bld) [#/Vol] 8.3 E9/L Normal 4.0 - 11.0 E9/L [facility] HemeAutoSS UA With Cult Reflexon 2022 Bacteria LM Ql (Urine sed) TRACE Normal Trace [facility] Comment on above: Performed By: #### 2 831998, 6068145, 1278587, 28674442, 8594310, 3895975 #### [facility] [address] [place] [address] Bilirubin Ql (U) Negative Normal Negative [facility] Comment on above: Performed By: #### 2 726440, 1782165, 1825575, 42681266, 8807936, 6314823 #### [facility] [address] [place] [address] Clarity (U) CLEAR Normal Clear [facility] Comment on above: Performed By: #### 2 175778, 2866844, 0125375, 89743243, 4404884, 8882198 #### [facility] [address] [place] [address] Color (U) YELLOW Normal Yellow [facility] Comment on above: Performed By: #### 2 178027, 5442451, 7898989, 40154952, 2054809, 0062430 #### [facility] [address] [place] [address] Epithelial cells.squamous LM.HPF (Urine sed) [#/Area] 0-2 Normal 0-2 [facility] Comment on above: Performed By: #### 2 737607, 1186594, 9289122, 64628530, 6795326, 2229889 #### [facility] [address] [place] [address] Glucose Test strip (U) [Mass/Vol] Negative Normal Negative [facility] Comment on above: Performed By: #### 2 313046, 2967020, 8364877, 45130265, 4913180, 3694616 #### [facility] [address] [place] [address] Hemoglobin Ql (U) Negative Normal Negative [facility] Comment on above: Performed By: #### 2 444382, 1806696, 2343499, 10846836, 3992784, 5883254 #### [facility] [address] [place] [address] Ketones (U) [Mass/Vol] Negative Normal Negative [facility] Comment on above: Performed By: #### 2 461759, 3214818, 1314417, 19397953, 7261736, 5780560 #### [facility] [address] [place] [address] Bicknell.plasma/Lithiu m.RBC (Bld) [Mass ratio] 0-3 Normal 0-3 [facility] Comment on above: Performed By: #### 2 128574, 0391361, 8457711, 63723702, 8042622, 8038387 #### [facility] [address] [place] [address] Mucus Ql (Urine sed) TRACE Normal Fish [facility] Comment on above: Performed By: #### 2 337757, 7543292, 7108090, 34236220, 1903373, 0201037 #### [facility] [address] [place] [address] Nitrite Ql (U) Negative Normal Negative [facility] Comment on above: Performed By: #### 2 651792, 5517831, 9066289, 67311534, 4756619, 1079234 #### [facility] [address] [place] [address] pH (U) 6.0 [pH] Invalid Interpretation Code 5.0-9.0 [facility] Comment on above: Performed By: #### 2 364285, 8814591, 6123043, 32361328, 7171405, 6772897 #### [facility] [address] [place] [address] Protein (U) [Mass/Vol] Negative Normal Negative [facility] Comment on above: Performed By: #### 2 349085, 8954301, 7990296, 43288167, 1990935, 5036383 #### [facility] [address] [place] [address] Specific gravity (U) [Rel density] >=1.030 Invalid Interpretation Code 1.005-1.030 [facility] Comment on above: Performed By: #### 2 215312, 6721297, 2756899, 51742208, 8180672, 0740884 #### [facility] [address] [place] [address] Type of Urine collection method Clean Catch Normal [facility] Comment on above: Performed By: #### 2 741450, 0605757, 2765668, 42373960, 2330315, 6548970 #### [facility] [address] [place] [address] Urobilinogen Qn (U) 0.2 {Rosette'U}/dL Normal 0.0-1.0 [facility] Comment on above: Performed By: #### 2 649325, 5880325, 5206624, 06379487, 6677607, 6306397 #### [facility] [address] [place] [address] WBC Auto Ql (U) 1+ Abnormal Negative [facility] Comment on above: Performed By: #### 2 801447, 8467148, 8819831, 34499931, 6520648, 9532531 #### [facility] [address] [place] [address] WBC LM.HPF (Urine sed) [#/Area] 6-15 Abnormal 0-5 [facility] Comment on above: Performed By: #### 2 372684, 0436762, 2037924, 52441694, 7067024, 4459735 #### [facility] [address] [place] [address] URINALYSISOrdered By: Fiorella Galicia on 06-22-2023 Bacteria LM Ql (Urine sed) Trace /HPF Normal Trace/HPF [facility] UA Auto SS Bilirubin Ql (U) Negative (06/22/23 2:40 PM) Normal Negative [facility] UA Auto SS Clarity (U) Clear (06/22/23 2:40 PM) Normal Clear [facility] UA Auto SS Color (U) Yellow (06/22/23 2:40 PM) Normal Yellow [facility] UA Auto SS Epithelial cells.squamous LM.HPF (Urine sed) [#/Area] 0-2 /HPF Normal 0-2/HPF [facility] UA Aut o SS Glucose Test strip (U) [Mass/Vol] Negative (06/22/23 2:40 PM) Normal Negative [facility] UA Auto SS Hemoglobin Ql (U) Negative (06/22/23 2:40 PM) Normal Negative [facility] UA Auto SS Ketones (U) [Mass/Vol] Negative (06/22/23 2:40 PM) Normal Negative [facility] UA Auto SS Bicknell.plasma/Lithiu m.RBC (Bld) [Mass ratio] 0-3 /HPF Normal 0-3/HPF [facility] UA Auto SS Mucus Ql (Urine sed) Trace (06/22/23 2:40 PM) Normal [facility] UA Auto SS Nitrite Ql (U) Negative (06/22/23 2:40 PM) Normal Negative [facility] UA Auto SS pH (U) 6.0 *NA* (06/22/23 2:40 PM) Invalid Interpretation Code 5.0 - 9.0 [facility] UA Auto SS Protein (U) [Mass/Vol] Negative (06/22/23 2:40 PM) Normal Negative [facility] UA Auto SS Specific gravity (U) [Rel density] >=1.030 *NA* (06/22/23 2:40 PM) Invalid Interpretation Code 1.005 - 1.030 [facility] UA Auto SS UA Spec Desc Clean Catch (06/22/23 2:40 PM) Normal [facility] UA Auto SS Urobilinogen Qn (U) 0.4726661 {Rosette'U}/dL Normal 0.0 - 1.0 EU/dL [facility] UA Auto SS WBC Auto Ql (U) 1+ *ABN* (06/22/23 2:40 PM) Invalid Interpretation Code Negative [facility] UA Auto SS WBC LM.HPF (Urine sed) [#/Area] 6-15 /HPF Invalid Interpretation Code 0-5/HPF [facility] UA Auto SS eGFRon 06-22-2023 eGFR 55 mL/min/1.73 m2 Low >=59 [facility] Comment on above: Order Comment: Order added by Discern Expert. Performed By: #### 2 073194, 5060870, 7326185, 41140344 ####[facility] [address] [place] [address] Physician Orderon 05-20-2023 Physician Order [id number]#1. 00TIFF Normal [facility] Urinalysis - DIPSTICKon 11-0 Appearance (U) cloudy [employer] Other Bilirubin Ql (U) Negative [employer] Other Color (U) dark yellow [employer] Other Glucose Ql (U) Negative [employer] Other Hemoglobin Ql (U) +++ [employer] Other Ketones Ql (U) Negative [employer] Other Leukocyte esterase Test strip Ql (U) ++ [employer] Other Nitrite Ql (U) Negative [employer] Other pH (U) Negative [employer] Other Protein Ql (U) ++ [employer] Other Specific gravity (U) [Rel density] 1.015 [employer] Other Urobilinogen (U) [Mass/Vol] Negative [employer] Other Urinalysis - DIPSTICK [employer] Other Consent for Treatmenton 11-0 Consent for Treatment [id number]#1.0 0TIFF Normal [facility] H&P Updateon 05-05-2023 H&P Update [id number]#1.[address] [facility] [address] Lower Extremity w/o Contr ast Righton 05-04-2023 CT Lower Extremity w/o Contrast Right Exam Date/Time: 05/03/2023 09:45 EDT Reason for Exam: OA RIGHT KNEE Report IMPRESSION: CT FOR KNEE PROSTHESIS CREATION. 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 EXAM: CT Lower Extremity w/o Contrast Right DATE: 05/03/2023 9:37 AM CLINICAL HISTORY: OA RIGHT KNEE. COMPARISON: None available. TECHNIQUE: Spiral unenhanced imaging was obtained of the right lower extremity for prosthesis creation, using [facility] protocol. All CT scans at this facility [...] and hip are noncontributory Ordering Provider: Cheko Ceja FINAL REPORT Dictated: 05/04/2023 8:30 am Cameron Abbott MD Signed (Electronic Signature): 05/04/2023 8:30 am Signed by: Cameron Abbott MD Transcribed by: JOSE ARMANDO Technologist: SB [facility] Consent for Procedure/Surger yon 05-04-2023 Consent for Procedure/Surgery [id number]#1.0 0TIFF [facility] Outside Recordson 05-04-2023 Outside Records [id number]#1.0 0TIFF [facility] Consent for Treatmenton 04-06 Consent for Treatment [id number]#1.0 0TIFF [facility] Physician Orderon 04-30-2023 Physician Order [id number]#1.0 0TIFF [facility] C Urineon 04-22-2023 Bacteria identified Cx Nom (U) Microbiology PROCEDURE: Urine Culture [R1] SOURCE: U CleanCatch BODY SITE: COLLECTED DATE/TIME: 04/20/2023 15:18 EDT RECEIVED DATE/TIME: 04/20/2023 17:33 EDT START DATE/TIME: 04/20/2023 17:33 EDT FREE TEXT SOURCE: Cheko Ceja DO, DO, Jason A FINAL REPORTS Final Report [] Verified Date/Time: 04/22/2023 10:31 EDT 2,000 cfu/ml Mixed skin contaminants Performing Locations R1: [facility], [address] [place] [address], [facility] , , [facility] Comment on above: Performed By: #### 1 [id number], 1247969 ####[facility] [address] [place] [address] ABO/Rh Retypeon 04-20-2023 ABO/Rh Retype Interp Positive Invalid Interpretation Code [facility] Comment on above: Performed By: #### 2 573298, 7612100, 5239721, 87838178, 8319618, 1791458 #### [facility] [address] [place] [address] BUNon 04-20-2023 Urea nitrogen [Mass/Vol] 20 mg/dL Normal 5-21 [facility] Comment on above: Performed By: #### 2 922628, 6606837, 7619014, 25532699, 4898801, 1361710 #### [facility] [address] [place] [address] CBC w/Indiceson 04-20-2023 Erythrocyte distribution width (RBC) [Ratio] 13.9 % Normal 10.9-14.2 [facility] Comment on above: Performed By: #### 2 226811, 8243079, 0566025, 73466921, 6437591, 2731680 #### [facility] [address] [place] [address] Hematocrit (Bld) [Volume fraction] 38.6 % Normal 34.0-46.0 [facility] Comment on above: Performed By: #### 2 072774, 9896275, 0444410, 75987437, 6755600, 9338722 #### [facility] [address] [place] [address] Hemoglobin (Bld) [Mass/Vol] 12.5 g/dL Normal 12.0-16.0 [facility] Comment on above: Performed By: #### 2 375222, 4715858, 7526290, 23017113, 5484579, 4428689 #### [facility] [address] [place] [address] MCH (RBC) [Entitic mass] 29.6 pg Normal 27.0-34.0 [facility] Comment on above: Performed By: #### 2 951477, 3834906, 4274118, 75624502, 2109318, 9426550 #### [facility] [address] [place] [address] MCHC (RBC) [Mass/Vol] 32.5 g/dL Normal 31.4-36.0 [facility] Comment on above: Performed By: #### 2 690665, 9326909, 5006279, 72337576, 1193791, 7453115 #### [facility] [address] [place] [address] MCV (RBC) [Entitic vol] 91.2 fL Normal 80.0-100.0 [facility] Comment on above: Performed By: #### 2 062987, 4225471, 1028844, 64744887, 0729236, 1321391 #### [facility] [address] [place] [address] Platelet mean volume (Bld) [Entitic vol] 9.6 fL Normal 6.4-10.8 [facility] Comment on above: Performed By: #### 2 989470, 3418806, 9103883, 86301909, 0076119, 9556821 #### [facility] [address] [place] [address] Platelets (Bld) [#/Vol] 296.0 E9/L Normal 150.0-500.0 [facility] Comment on above: Performed By: #### 2 636073, 2006260, 1647253, 59696898, 4454645, 1688733 #### [facility] [address] [place] [address] RBC (Bld) [#/Vol] 4.2 E12/L Low 4.3-5.9 [facility] Comment on above: Performed By: #### 2 167164, 3917733, 7637976, 78207878, 3593048, 8023058 #### [facility] [address] [place] [address] WBC corrected for nucl RBC Auto (Bld) [#/Vol] 7.7 E9/L Normal 4.0-11.0 [facility] Comment on above: Performed By: #### 2 376168, 8405638, 1207774, 46013536, 4418344, 6711548 #### [facility] [address] [place] [address] Consent for Treatmenton 04-04 Consent for Treatment [id number]#1.0 0TIFF Normal [facility] Creatinineon 04-20-2023 Creatinine [Mass/Vol] 1.1 mg/dL Normal 0.5-1.3 [facility] Comment on above: Performed By: #### 2 607376, 1732241, 1293848, 48861104, 9833751, 5910338 #### [facility] [address] [place] [address] Glucoseon 04-20-2023 Glucose [Mass/Vol] 90 mg/dL Normal 55-199 [facility] Comment on above: Performed By: #### 2 180454, 3761467, 4849950, 63849686, 8917945, 4632381 #### [facility] [address] [place] [address] Lyteson 04-20-2023 Anion gap [Moles/Vol] 9 mmol/L Normal 6-16 [facility] Comment on above: Performed By: #### 2 112288, 0671367, 0373722, 24843551, 4338513, 6983356 #### [facility] [address] [place] [address] Chloride [Moles/Vol] 107 mmol/L Normal 101-111 [facility] Comment on above: Performed By: #### 2 254339, 5557420, 1312371, 29542225, 0813084, 4535952 #### [facility] [address] [place] [address] CO2 [Moles/Vol] 26 mmol/L Normal 21-31 [facility] Comment on above: Performed By: #### 2 930546, 3623387, 5599961, 71668639, 6159916, 9555471 #### [facility] [address] [place] [address] Potassium [Moles/Vol] 4.1 mmol/L Normal 3.5-5.3 [facility] Comment on above: Performed By: #### 2 977016, 0485478, 9955348, 77575445, 6917898, 9377215 #### [facility] [address] [place] [address] Sodium [Moles/Vol] 138 mmol/L Normal 135-145 [facility] Comment on above: Performed By: #### 2 202566, 2366672, 8257180, 76245241, 0357344, 8463859 #### [facility] [address] [place] [address] UA With Cult Reflexon 2022 Bacteria LM Ql (Urine sed) TRACE Normal Trace [facility] Comment on above: Performed By: #### 1 3383374, 0540738 ####[facility] [address] [place] [address] Bilirubin Ql (U) Negative Normal Negative [facility] Comment on above: Performed By: #### 1 9068254, 7662702 ####[facility] [address] [place] [address] Clarity (U) SL CLOUDY Abnormal Clear [facility] Comment on above: Performed By: #### 1 0576743, 9610941 ####[facility] [address] [place] [address] Color (U) YELLOW Normal Yellow [facility] Comment on above: Performed By: #### 1 7119978, 2951055 ####[facility] [address] [place] [address] Crystals LM Ql (Urine sed) Present Normal [facility] Comment on above: Performed By: #### 1 4991440, 9272394 ####[facility] [address] [place] [address] Epithelial cells.squamous LM.HPF (Urine sed) [#/Area] 0-2 Normal 0-2 [facility] Comment on above: Performed By: #### 1 3490130, 0693545 ####[address] [address] Glucose Test strip (U) [Mass/Vol] Negative Normal Negative [facility] Comment on above: Performed By: #### 1 4588606, 4105305 ####[address] [address] Hemoglobin Ql (U) TRACE Abnormal Negative [facility] Comment on above: Performed By: #### 1 3409803, 4607099 ####[address] [address] Ketones (U) [Mass/Vol] Negative Normal Negative [facility] Comment on above: Performed By: #### 1 0493242, 3676232 ####[address] [address] Bicknell.plasma/Lithiu m.RBC (Bld) [Mass ratio] 0-3 Normal 0-3 [facility] Comment on above: Performed By: #### 1 5651885, 3847093 ####[address] [address] Mucus Ql (Urine sed) TRACE Normal Fish er [facility] Comment on above: Performed By: #### 1 5706412, 7216834 ####[address] [address] Nitrite Ql (U) Negative Normal Negative [facility] Comment on above: Performed By: #### 1 7611231, 6141378 ####[address] [address] pH (U) 5.5 [pH] Invalid Interpretation Code 5.0-9.0 [facility] Comment on above: Performed By: #### 1 0816446, 0258031 ####[address] [address] Protein (U) [Mass/Vol] Negative Normal Negative [facility] Comment on above: Performed By: #### 1 1627711, 1940742 ####[address] [address] Specific gravity (U) [Rel density] 1.015 Invalid Interpretation Code 1.005-1.030 [facility] Comment on above: Performed By: #### 1 4620914, 2079275 ####[address] [address] Type of Urine collection method Clean Catch Normal [facility] Comment on above: Performed By: #### 1 8674486, 0837653 ####[address] [place] [address] Urobilinogen Qn (U) 0.2 {Rosette'U}/dL Normal 0.0-1.0 [facility] Comment on above: Performed By: #### 1 9681884, 4131895 ####[address] [address] WBC Auto Ql (U) 3+ Abnormal Negative [facility] Comment on above: Performed By: #### 1 6564605, 2841933 ####[address] [address] WBC LM.HPF (Urine sed) [#/Area] 16-25 Abnormal 0-5 [facility] Comment on above: Performed By: #### 1 8999175, 1064850 ####[address] [address] XR Chest 2 Viewson 3 XR Chest 2 Views Exam Date/Time: 04/20/2023 15:28 EDT Reason for Exam: P.A.T. Report IMPRESSION: NO RADIOGRAPHIC EVIDENCE OF ACTIVE DISEASE IN THE CHEST. CLINICAL INFORMATION: P.A.T. COMPARISON: None available. FINDINGS: Two views of the chest were obtained. Heart and mediastinum appear normal. The lungs appear clear. Visualized bony thorax and remainder of the chest appears unremarkable. Ordering Provider: Pop Ahmad FINAL REPORT Dictated: 04/20/2023 4:58 pm Alexandro Hurst MD Signed (Electronic Signature): 04/20/2023 4:58 pm Signed by: Alexandro Hurst MD Transcribed by: JOSE ARMANDO Technologist: RISSA Technical Comments Radiation Dose: Ka,r in mGy = na DAP = na Normal [facility] eGFRon 04-20-2023 GFR/1.73 sq M.predicted among non-blacks MDRD (S/P/Bld) [Vol rate/Area] 50 mL/min/1.73 m2 Low >=59 [facility] Comment on above: Order Comment: Order added by Discern Expert. Result Comment: Trust Administrative Assistant kiki kidney disease could be indicated at eGFR's of less than 60 mL/min/1.73m2. Kidney failure is indicated at less than 15 mL/min/1.73m2. Performed By: #### 2 338264, 0849232, 8017929, 74093717, 3906516, 8936625 #### [facility] [address] [place] [address] Physician Orderon 04-12-2023 Physician Order [id number]#1.0 0TIFF Normal [facility] Physician Orderon 04-05-2023 Physician Order [id number]#1. 00CD:127 Normal [facility] Physician Orderon 04-01-2023 Physician Order [id number]#1.0 0CD:127 Normal [facility] Covid-19 PCRon 09-15-2022 Covid-19 PCR see note [employer] Other [facility] 09-02 SARS-CoV-2 (COVID-19) RNA JONNIE+probe Ql (Unsp spec) Not detected NOT DETECTED [facility] Comment on above: Result Comment: When diagnostic testing is negative, the possibility of a false negative should be considered in the context of a patient's recent exposures and the presence of clinical signs and symptoms consistent with SARS-CoV-2. This test is not yet approved or cleared by the [place] FDA. When there are no FDA-approved or cleared tests available, and other criteria are met, FDA can make tests available under an emergency access mechanism called an Emergency Use Authorization (EUA). The EUA for this test is supported by the [place] of Health and Human Service's declaration that circumstances exist to justify the emergency use of in vitro diagnostics for the detection and/or diagnosis of the virus that causes COVID-19. This EUA will remain in effect for the duration of the COVID-19 declaration justifying emergency of IVDs, unless it is terminated or revoked by the FDA (after which the test may no longer be used). Performed By: #### C VDTB #### [facility] [address] [place] [address] Dr. Cristian Garner INFLUENZA A AND B AGon 09-15 [facility] SEE BELOW Normal [facility] Comment on above: Result Comment: Nega tive for Flu A protein angiten. Infection due to Flu A cannot be ruled out. Flu A angiten in the sample may be below the detection limit of the test. Performed By: #### I NFLUAB #### [facility] [address] [place] [address] Dr. Cristian Garner INFLUBANNER SEE BELOW Normal [facility] Comment on above: Result Comment: Nega tive for Flu B protein antigen. Infection due to Flu B cannot be ruled out. Flu B antigen in the sample may be below the detection limit of the test. Performed By: #### I NFLUAB #### [facility] [address] [place] [address] Dr. Cristian Garner INFLUENZA A AG Negative Normal NEGATIVE SEE COMMENT [facility] Comment on above: Performed By: #### I NFLUAB #### [facility] [address] [place] [address] Dr. Cristian Garner INFLUENZA B AG Negative Normal NEGATIVE SEE COMMENT [facility] Comment on above: Performed By: #### I NFLUAB #### [facility] [address] [place] [address] Dr. Cristian Garner INFLUENZA A AND B AG Negative NEGATIV E SEE COMMENT [facility] [employer] Other INFLUENZA A AND B AG SEE BELOW [facility] [employer] Other [place] STRESS/REST MULTIon 04-15 [place] STRESS/REST MULTI Patient: ROSELIA MILES Exam Date: 04/15/2022 : 1940 Gender:F Ordering : DR ALEXANDRO ROSARIO D.O. Admission #: [id number] Family : Order #: [id number] CLICK HERE TO VIEW EXAM RADIOLOGY REPORT PROCEDURE: RADIONUCLIDE IMAGING STRESS/REST MULTI COMPARISON: None. INDICATIONS: Dyspnea on exertion TECHNIQUE: Exam Description: Rest/Stress one day protocol gated SPECT Rest Imagin.2 mCi Tc-99m Cardiolite IV on 04/15/2022 Stress Imaging 30.6 mCi Tc-99m Cardiolite IV on 04/15/2022 Exercise Protocol: Endy Heart Rate (bpm): Rest: 66 Max: 134 PMHR: 96 Blood Pressure: Rest: 142/70 Max: 184/82 Exercise Time: Minutes: 5 Seconds: 30 Stage Reached: Stage: 2 Mets 7.0 Symptoms: Rest and peak stress ECG findings were abnormal and the exercise portion of the study was abnormal per attending physician Dr. Miles Rosario due to EKG changes. For more details please see separate cardiac stress test report. FINDINGS: QUALITY OF STUDY: Excellent. PERFUSION DEFECT: None. LOCATION: N/A SIZE: N/A. SEVERITY: N/A. TYPE: N/A. WALL MOTION: Normal. LV SIZE: Normal. 52 mL. TID / TCD: None; 0.7 LVEF: Normal. Calculated EF 93%. SUMMARY: Myocardial perfusion imaging study is NORMAL. CONCLUSION: 1. Normal myocardial profusion scan 2. Abnormal exercise test secondary to EKG changes Dictated by: Prieto Stacy MD on 04/16/2022 at 13:15 Approved by: Prieto Stacy MD on 04/16/2022 at 13:19 Normal [facility] CBC AUTO DIFFon 04-09-2022 BASO # 0.1 103/ul Normal 0.0-0.1 [facility] Comment on above: Performed By: #### C BC #### [facility] [address] [place] [address] Dr. Cristian Garner Basophils/100 WBC (Bld) 0.8 % Normal 0.2-2.0 [facility] Comment on above: Performed By: #### C BC #### [facility] [address] [place] [address] Dr. Cristian Garner EO # 0.7 103/ul Normal 0.0-0.7 [facility] Comment on above: Performed By: #### C BC #### [facility] [address] [place] [address] Dr. Cristian Garner Eosinophils/100 WBC (Bld) 7.9 % Critically high 0.9-7.0 [facility] Comment on above: Performed By: #### C BC #### [facility] [address] [place] [address] Dr. Cristian Garner Erythrocyte distribution width (RBC) [Ratio] 13.7 % Normal 11.0-15.0 [facility] Comment on above: Performed By: #### C BC #### [facility] [address] [place] [address] Dr. Cristian Garner Hematocrit (Bld) [Volume fraction] 39.9 % Normal 36.0-48.0 [facility] Comment on above: Performed By: #### C BC #### [facility] [address] [place] [address] Dr. Cristian Garner Hemoglobin (Bld) [Mass/Vol] 12.5 g/dL Normal 12.0-16.0 [facility] Comment on above: Performed By: #### C BC #### [facility] [address] [place] [address] Dr. Cristian Garner IG # 0.02 10e3/ul Normal 0.00-0.03 [facility] Comment on above: Performed By: #### C BC #### [facility] [address] [place] [address] Dr. Cristian Garner IG % 0.2 % Normal 0.0-0.5 [facility] Comment on above: Performed By: #### C BC #### [facility] [address] [place] [address] Dr. Cristian Garner LYMPH # 0.9 103/ul Critically low 1.2-3.8 [facility] Comment on above: Performed By: #### C BC #### [facility] [address] [place] [address] Dr. Cristian Garner Lymphocytes/100 WBC (Bld) 10.0 % Critically low 20.5-60.0 [facility] Comment on above: Performed By: #### C BC #### [facility] [address] [place] [address] Dr. Cristian Garner MANUAL DIFF REQ NO Normal [facility] Comment on above: Performed By: #### C BC #### [facility] [address] [place] [address] Dr. Cristian Garner MCH (RBC) [Entitic mass] 29.7 pg Normal 26.7-34.0 [facility] Comment on above: Performed By: #### C BC #### [facility] [address] [place] [address] Dr. Cristian Garner MCHC (RBC) [Mass/Vol] 31.3 g/dL Normal 29.9-35.2 [facility] Comment on above: Performed By: #### C BC #### [facility] [address] [place] [address] Dr. Cristian Garner MCV (RBC) [Entitic vol] 94.8 fL Normal 81.0-99.0 [facility] Comment on above: Performed By: #### C BC #### [facility] [address] [place] [address] Dr. Cristian Garner MONO # 0.9 103/ul Critically high 0.3-0.8 [facility] Comment on above: Performed By: #### C BC #### [facility] [address] [place] [address] Dr. Cristian Garner Monocytes/100 WBC (Bld) 10.6 % Normal 1.7-12.0 [facility] Comment on above: Performed By: #### C BC #### [facility] [address] [place] [address] Dr. Cristian Garner NEUT # 6.2 103/ul Normal 1.4-6.5 [facility] Comment on above: Performed By: #### C BC #### [facility] [address] [place] [address] Dr. Cristian Garner Neutrophils/100 WBC (Bld) 70.5 % Normal 43.0-75.0 [facility] Comment on above: Performed By: #### C BC #### [facility] [address] [place] [address] Dr. Cristian Garner Platelet mean volume (Bld) [Entitic vol] 10.0 fL Normal 9.5-13.5 [facility] Comment on above: Performed By: #### C BC #### [facility] [address] [place] [address] Dr. Cristian Garner PLT 308 103/ul Normal 150-450 [facility] Comment on above: Performed By: #### C BC #### [facility] [address] [place] [address] Dr. Cristian Garner RBC 4.21 106/ul Normal 4.20-5.40 [facility] Comment on above: Performed By: #### C BC #### [facility] [address] [place] [address] Dr. Cristian Garner WBC 8.8 103/ul Normal 4.0-11.0 [facility] Comment on above: Performed By: #### C BC #### [facility] [address] [place] [address] Dr. Cristian Garner LIPID PROFILEon 04-09-2022 CHOL-HDL RATIO NORM SEE BELOW Normal [facility] Comment on above: Result Comment: 3.3 - 4.4 LOW RISK 4.4 - 7.1 AVERAGE RISK 7.1 - 11.0 MODERATE RISK >11.0 HIGH RISK Performed By: #### A LT, LIPID, BMP #### [facility] [address] [place] [address] Dr. Cristian Garner Cholesterol [Mass/Vol] 146 mg/dL Normal <=200 [facility] Comment on above: Performed By: #### A LT, LIPID, BMP #### [facility] [address] [address] [address] Cristian Garner Cholesterol in HDL [Mass/Vol] 43 mg/dL Normal 40-60 [facility] Comment on above: Performed By: #### A LT, LIPID, BMP #### [facility] [address] [place] [address] Dr. Cristian Garner Cholesterol in LDL [Mass/Vol] 67.8 mg/dL Normal [facility] Comment on above: Performed By: #### A LT, LIPID, BMP #### [facility] [address] [place] [address] Dr. Cristian Garner Cholesterol.total/Cho lesterol in HDL [Mass ratio] 3.4 {ratio} Normal [facility] Comment on above: Performed By: #### A LT, LIPID, BMP #### [facility] [address] [place] [address] Dr. Cristian Garner HDL NORMAL > or = 60 mg/dl - LO W CARDIOVASCULAR RISK <40 mg/dl - HIGH CARDIOVASCULAR RISK Normal [facility] Comment on above: Performed By: #### A LT, LIPID, BMP #### [facility] [address] [place] [address] Dr. Cristian Garner LDL CALC NORMAL SEE BELOW Normal [facility] Comment on above: Result Comment: <100 mg/dl OPTIMAL 100 - 129 mg/dl NEAR OR ABOVE OPTIMAL 130 - 159 mg/dl BORDERLINE HIGH 160 - 189 mg/dl HIGH >190 mg/dl VERY HIGH Performed By: #### A LT, LIPID, BMP #### [facility] [address] [address] [address] Cristian Garner Triglyceride [Mass/Vol] 176 mg/dL Critically high <=150 [facility] Comment on above: Performed By: #### A LT, LIPID, BMP #### [facility] [address] [place] [address] Dr. Cristian Garner VLDL CALC 35.2 mg/dL Normal [facility] Comment on above: Performed By: #### A LT, LIPID, BMP #### [facility] [address] [place] [address] Dr. Cristian Garner PROF CHEM 8 (BAS METB)on Anion gap [Moles/Vol] 7.5 mmol/L Normal [facility] Comment on above: Performed By: #### A LT, LIPID, BMP #### [facility] [address] [place] [address] Dr. Cristian Garner Calcium [Mass/Vol] 9.4 mg/dL Normal 8.5-10.1 [facility] Comment on above: Performed By: #### A LT, LIPID, BMP #### [facility] [address] [place] [address] Dr. Cristian Garner Chloride [Moles/Vol] 106 mmol/L Normal 98-107 [facility] Comment on above: Performed By: #### A LT, LIPID, BMP #### [facility] [address] [place] [address] Dr. Cristian Garner CO2 [Moles/Vol] 28.7 mmol/L Normal 21.0-32.0 [facility] Comment on above: Performed By: #### A LT, LIPID, BMP #### [facility] [address] [place] [address] Dr. Cristian Garner Creatinine [Mass/Vol] 1.15 mg/dL Critically high 0.55-1.02 [facility] Comment on above: Performed By: #### A LT, LIPID, BMP #### [facility] [address] [place] [address] Dr. Cristian Garner EGFR-AF SINGAPOREAN 55 mL/min/1.73m2 Critically low >=60 [facility] Comment on above: Performed By: #### A LT, LIPID, BMP #### [facility] [address] [place] [address] Dr. Cristian Garner EGFR-NON AF SINGAPOREAN 45 mL/min/1.73m2 Critically low >=60 [facility] Comment on above: Performed By: #### A LT, LIPID, BMP #### [facility] [address] [place] [address] Dr. Cristian Garner Glucose [Mass/Vol] 88 mg/dL Normal 74-106 [facility] Comment on above: Performed By: #### A LT, LIPID, BMP #### [facility] [address] [address] [address] Cristian Garner Potassium [Moles/Vol] 4.2 mmol/L Normal 3.5-5.1 [facility] Comment on above: Performed By: #### A LT, LIPID, BMP #### [facility] [address] [address] [address] Cristian Garner Sodium [Moles/Vol] 138 mmol/L Normal 136-145 [facility] Comment on above: Performed By: #### A LT, LIPID, BMP #### [facility] [address] [address] [address] Cristian Garner Urea nitrogen [Mass/Vol] 18.0 mg/dL Normal 7.0-18.0 [facility] Comment on above: Performed By: #### A LT, LIPID, BMP #### [facility] [address] [address] [address] Cristian Garner Urea nitrogen/Creatinine [Mass ratio] 15.7 mg/mg Normal [facility] Comment on above: Performed By: #### A LT, LIPID, BMP #### [facility] [address] [address] [address] Cristian Garner [facility] 04-09-2022 ALT [Catalytic activity/Vol] 21 U/L Normal 14-59 [facility] Comment on above: Performed By: #### A LT, LIPID, BMP #### [facility] [address] [address] [address] Cristian Garner Blood hemoglobin measurement (mass/volume)on 11-16-2020 Hemoglobin (Bld) [Mass/Vol] 13.3 g/dL 11.8-15.4 [facility] Body fluid albumin measureme nt (mass/volume)on 11-16-2020 Albumin (Body fld) [Mass/Vol] 3.7 g/dL 3.2-5.5 [facility] Cholesterol [Mass/volume] in Serum or Plasmaon 11-16-2020 Cholesterol [Mass/Vol] 163 mg/dL 140-200 [facility] Comment on above: Chol less than 200 m g/dl low riskChol 201-239 mg/dl borderline riskChol 240 mg/dl and greater high risk Cholesterol in LDL Calc [Mas s/Vol]on 11-16-2020 Cholesterol in LDL [Mass/Vol] 91 mg/dL 0-100 [facility] Comment on above: LDL ATP III CLASSIFI CATIONLDL less than 100 mg/dL OptimalLDL 100-129 mg/dL Near or above optimalLDL 130-159 mg/dL Borderline highLDL 160-189 mg/dL HighLDL greater than 189 mg/dL Very high Cholesterol in VLDL Calc [Ma ss/Vol]on 11-16-2020 Cholesterol in VLDL [Mass/Vol] 20 mg/dL [facility] Creatinine and Glomerular fi ltration rate.predicted panel (S/P/Bld)on 11-16-2020 Creatinine [Mass/Vol] 0.96 mg/dL 0.44-1.03 [facility] Erythrocyte distribution wid th Auto (RBC) [Ratio]on 11-16-2020 Erythrocyte distribution width (RBC) [Ratio] 14.0 % 11.9-15.3 [facility] Estimated glomerular filtrat ion rate (GFR) non- Americanon 11-16-2020 GFR/1.73 sq M.predicted among non-blacks MDRD (S/P/Bld) [Vol rate/Area] 56 mL/Min [facility] Hematocrit Auto (Bld) [Volum e fraction]on 11-16-2020 Hematocrit (Bld) [Volume fraction] 41.2 % 34.0-46.4 [facility] MCH Auto (RBC) [Entitic mass ]on 11-16-2020 MCH (RBC) [Entitic mass] 29.9 pg 24.7-34.3 [facility] MCHC Auto (RBC) [Mass/Vol]on 11-16-2020 MCHC (RBC) [Mass/Vol] 32.4 g/dL 32.0-35.0 [facility] MCV Auto (RBC) [Entitic vol] on 11-16-2020 MCV (RBC) [Entitic vol] 92.4 fL 80-100 [facility] No Panel Informationon 11-16 Estimated GFR () > 60 mL/Min [facility] Comment on above: GFR estimated refere nce range: According to KDOQI guidelines, <60 ml/min/1.73m2 is sufficient to diagnose a patient with chronic kidney disease. Pharmacy Creatinine Clearance (Chem N/A [facility] Triglycerides Reflex 101 mg/dL 35-149 [facility] Comment on above: TRIG ATP III CLASSIF ICATIONTRIG less than 150 mg/dL NormalTRIG 150-199 mg/dL Borderline highTRIG 200-500 mg/dL High TRIG greater than 500 mg/dL Very highStandard traceable to the Center for Disease Conrtrol and Prevention (CDC) test method. Platelet mean volume Auto (B ld) [Entitic vol]on 11-16-2020 Platelet mean volume (Bld) [Entitic vol] 9.1 fL 6.3-10.7 [facility] Platelets Auto (Bld) [#/Vol] on 11-16-2020 Platelets (Bld) [#/Vol] 278 10*3/uL 150-450 [facility] Protein [Mass/volume] in Ser um or Plasmaon 11-16-2020 Protein [Mass/Vol] 6.8 g/dL 6.1-7.9 [facility] RBC Auto (Bld) [#/Vol]on RBC (Bld) [#/Vol] 4.46 10*6/uL 3.60-5.00 [facility] Serum or plasma alanine ricks otransferase measurement without P-5'-P (enzymatic activion 11-16-2020 ALT No additional P-5'-P [Catalytic activity/Vol] 13 U/L 10-60 [facility] Serum or plasma alkaline franklin sphatase measurement (enzymatic activity/volume)on 11-16-2020 ALP [Catalytic activity/Vol] 58 U/L 32-92 [facility] Serum or plasma aspartate am inotransferase measurement (enzymatic activity/volume)on 11-16-2020 AST [Catalytic activity/Vol] 24 U/L 10-42 [facility] Serum or plasma calcium gatito urement (mass/volume)on 11-16-2020 Calcium [Mass/Vol] 9.4 mg/dL 8.2-10.2 [facility] Serum or plasma chloride ynes surement (moles/volume)on 11-16-2020 Chloride [Moles/Vol] 106 mmol/L 95-114 [facility] Serum or plasma glucose gatito urement (mass/volume)on 11-16-2020 Glucose [Mass/Vol] 88 mg/dL 70-100 [facility] Comment on above: ADA recommended refe rence rangeRandom Glucose Reference Range is dependent on time and content of last meal. Glucose of more than 200 mg/dL in a nonstressed, ambulatory subject supports the diagnosis of Diabetes Mellitus. Serum or plasma high density lipoprotein (HDL) cholesterol measurementon 11-16-2020 Cholesterol in HDL [Mass/Vol] 52 mg/dL 35-85 [facility] Comment on above: HDL CHOL ATP-III CLA SSIFICATION Cardiovascular RiskHDL > or equal to 60 mg/dL LOWHDL < 40 mg/dL HIGH Serum or plasma potassium me asurement (moles/volume)on 11-16-2020 Potassium [Moles/Vol] 4.4 mmol/L 3.5-5.1 [facility] Serum or plasma sodium measu rement (moles/volume)on 11-16-2020 Sodium [Moles/Vol] 140 mmol/L 136-146 [facility] Serum or plasma total biliru bin measurement (mass/volume)on 11-16-2020 Bilirubin [Mass/Vol] 0.4 mg/dL 0.3-1.2 [facility] Serum or plasma total carbon dioxide measurement (moles/volume)on 11-16-2020 CO2 [Moles/Vol] 25.9 mmol/L 22.0-30.0 [facility] Serum or plasma total choles terol/high density lipoprotein (HDL) cholesterol mass stanley 11-16-2020 Cholesterol.total/Cho lesterol in HDL [Mass ratio] 3.1 {ratio} [facility] Serum or plasma urea nitroge n measurement (mass/volume)on 11-16-2020 Urea nitrogen [Mass/Vol] 13 mg/dL 9-23 [facility] WBC Auto (Bld) [#/Vol]on WBC (Bld) [#/Vol] 6.1 10*3/uL 3.8-11.6 [facility] CT COLONOGRAPHY DIAGNOSTICon 12-23-2017 CT [facility] [address] [place] [address] ========Patient Name: ROSELIA MILES : 1940Sex: FAge: Race: WhiteMRN: [id number]. Location: 260Patient Status: DVisit #: [id number] Date: 12/07/2017 11:40:00 AMCompleted Date: 12/23/2017 08:26 AMRequesting Provider: SARAH MUSTAFA Attending Provider: SARAH MUSTAFA Report Copy To: SELF, REFERRED Signs & Symptoms: K63.5 Polyp of colon P93Lhqdmbc: Julissa no ct/medicare *caComments: incomplete colonoscopy in pastExam: CT COLONOGRAPHY DIAGNOSTICAccession #: [id number] CT COLONOGRAPHY DIAGNOSTIC 12/23/2017 8:27 AM EDT SIGNS AND SYMPTOMS: K63.5 Polyp of colon I10 TECHNOLOGIST COMMENTS: Incomplete colonscopy. 3.2L given total QUESTION FOR THE RADIOLOGIST: incomplete colonoscopy in past PROTOCOL: Patient received a standard bowel preparation with fecal tagging prior to imaging. Following manual insufflation per a rectal tube supine and right lateral decubitus images were obtained without intravenous contrast. TECHNIQUE: Multidetector CT axial slices of the abdomen and pelvis without IV contrast. Multiplanar reformats were performed and viewed on a separate workstation and reviewed to further define anatomy and possible pathology. COMPARISON: None. FINDINGS: The colonic prep and distention were very good. No polypoid lesions were identified. No annular constricting lesions or diverticula are present.Extracolonic findings include apparent cysts in segment 3 of the liver. Calcified granulomas are present spleen. Moderate atherosclerosis is present in the aorta. IMPRESSION: Unremarkable virtual colonoscopy.Low attenuating lesions in segment 3 of the liver, presumably simple hepatic cysts. Electronically signed by:Tank Ly. Transcribed by: [id number], User Resident: Electronically Signed by: TANK LY @ 12/24/2017 06:43 AM Normal [facility] Comment on above: Order Comment: incom plete colonoscopy in past Vital Signs Date Time Vital Sign Value Performing Clinician Facility 02-12-2025 13:50-0400 Body height 165.1 cm Alexandro Avatrip DO Work Phone: [facility] 02-12-2025 13:50-0400 Body mass index (BMI) [Ratio] 25.7 kg/m2 Alexandro Ball DO Work Phone: [facility] 02-12-2025 13:50-0400 Body weight 70.3 kg Alexandro Ball DO Work Phone: [facility] 02-12-2025 13:50-0400 Diastolic blood pressure 75 mm[Hg] Alexandro Ball DO Work Phone: [facility] 02-12-2025 13:50-0400 Heart rate 53 /min Alexandro Ball DO Work Phone: [facility] 02-12-2025 13:50-0400 Respiratory rate 12 /min Alexandro Ball DO Work Phone: [facility] 02-12-2025 13:50-0400 Systolic blood pressure 158 mm[Hg] Alexandro Ball DO Work Phone: [facility] 01-30-2025 10:53-0400 Body height 160 cm Cheko Bunchball DO Work Phone: [facility] 01-30-2025 10:53-0400 Body mass index (BMI) [Ratio] 27.1 kg/m2 Cheko Bunchball DO Work Phone: [facility] 01-30-2025 10:53-0400 Body weight 69.4 kg Cheko Ceja DO Work Phone: [facility] 01-16-2025 16:31-0400 Body temperature 97.59 [degF] Jeramy Baxter PHOTOGRAPHIC SPOTTER Work Phone: [facility] 01-16-2025 16:31-0400 Diastolic blood pressure 62 mm[Hg] Jreamy Baxter PHOTOGRAPHIC SPOTTER Work Phone: [facility] 01-16-2025 16:31-0400 Heart rate 66 /min Jeramy Baxter PHOTOGRAPHIC SPOTTER Work Phone: [facility] 01-16-2025 16:31-0400 Respiratory rate 20 /min Jeramy Baxter PHOTOGRAPHIC SPOTTER Work Phone: [facility] 01-16-2025 16:31-0400 SaO2% (BldA) [Mass fraction] 96 % Jeramy Baxter PHOTOGRAPHIC SPOTTER Work Phone: [facility] 01-16-2025 16:31-0400 Systolic blood pressure 134 mm[Hg] Jeramy Baxter PHOTOGRAPHIC SPOTTER Work Phone: [facility] 11-06-2024 08:59-0400 Body height 165.1 cm [facility] 11-06-2024 08:59-0400 Body mass index (BMI) [Ratio] 26.6 kg/m2 [facility] 11-06-2024 08:59-0400 Body weight 72.74 kg [facility] 11-06-2024 08:59-0400 Diastolic blood pressure 80 mm[Hg] [facility] 11-06-2024 08:59-0400 Diastolic blood pressure 89 mm[Hg] Alexandro Ball DO Work Phone: [facility] 11-06-2024 08:59-0400 Heart rate 80 /min [facility] 11-06-2024 08:59-0400 Respiratory rate 12 /min [facility] 11-06-2024 08:59-0400 Systolic blood pressure 157 mm[Hg] [facility] 11-06-2024 08:59-0400 Systolic blood pressure 139 mm[Hg] Alexandro Ball DO Work Phone: [facility] 10-18-2024 12:01-0400 Body height 165.1 cm [facility] 10-18-2024 12:01-0400 Body mass index (BMI) [Ratio] 27.1 kg/m2 [facility] 10-18-2024 12:01-0400 Body weight 74.16 kg [facility] 10-18-2024 12:01-0400 Diastolic blood pressure 68 mm[Hg] [facility] 10-18-2024 12:01-0400 Heart rate 69 /min [facility] 10-18-2024 12:01-0400 Respiratory rate 12 /min [facility] 10-18-2024 12:01-0400 Systolic blood pressure 143 mm[Hg] [facility] 10-09-2024 14:30-0400 Body mass index (BMI) [Ratio] 24.98 kg/m2 Jeramy Baxter PHOTOGRAPHIC SPOTTER Work Phone: [facility] 10-09-2024 14:30-0400 Body temperature 98.71 [degF] Jeramy Baxter PHOTOGRAPHIC SPOTTER Work Phone: [facility] 10-09-2024 14:30-0400 Body weight 63.96 kg Jeramy Kei PHOTOGRAPHIC SPOTTER Work Phone: [facility] 10-09-2024 14:30-0400 Diastolic blood pressure 66 mm[Hg] Jeramy Baxter PHOTOGRAPHIC SPOTTER Work Phone: [facility] 10-09-2024 14:30-0400 Heart rate 78 /min Jeramypaddy Baxter PHOTOGRAPHIC SPOTTER Work Phone: [facility] 10-09-2024 14:30-0400 SaO2% (BldA) [Mass fraction] 98 % Jeramy Baxter PHOTOGRAPHIC SPOTTER Work Phone: [facility] 10-09-2024 14:30-0400 Systolic blood pressure 118 mm[Hg] Jeramypaddy Baxter PHOTOGRAPHIC SPOTTER Work Phone: [facility] 10-05-2024 09:15-0400 Body height 165.1 cm [facility] 10-05-2024 09:15-0400 Body mass index (BMI) [Ratio] 27 kg/m2 [facility] 10-05-2024 09:15-0400 Body weight 73.65 kg [facility] 10-05-2024 09:15-0400 Diastolic blood pressure 77 mm[Hg] [facility] 10-05-2024 09:15-0400 Heart rate 68 /min [facility] 10-05-2024 09:15-0400 Respiratory rate 12 /min [facility] 10-05-2024 09:15-0400 Systolic blood pressure 123 mm[Hg] [facility] 08-03-2024 14:02-0500 Diastolic blood pressure 70 mm[Hg] Morgan Brown MD Work Phone: [facility] 08-03-2024 14:02-0500 Systolic blood pressure 122 mm[Hg] Morgan Brown MD Work Phone: [facility] 04-17-2024 13:16-0400 Body mass index (BMI) [Ratio] 24.98 kg/m2 Morgan Brown MD Work Phone: [facility] 04-17-2024 13:16-0400 Body weight 63.96 kg Morgan Brown MD Work Phone: [facility] 04-17-2024 13:16-0400 Diastolic blood pressure 70 mm[Hg] Morgan Brown MD Work Phone: [facility] 04-17-2024 13:16-0400 Systolic blood pressure 120 mm[Hg] Morgan Brown MD Work Phone: [facility] 03-22-2024 17:40-0400 Body mass index (BMI) [Ratio] 27.28 kg/m2 Fiorella Forrest PHOTOGRAPHIC SPOTTER Work Phone: [facility] 03-22-2024 17:40-0400 Body temperature 96.69 [degF] Fiorella Forrest PHOTOGRAPHIC SPOTTER Work Phone: [facility] 03-22-2024 17:40-0400 Body weight 69.85 kg Fiorella Forrest PHOTOGRAPHIC SPOTTER Work Phone: [facility] 03-22-2024 17:40-0400 Diastolic blood pressure 72 mm[Hg] Fiorella Royok PHOTOGRAPHIC SPOTTER Work Phone: [facility] 03-22-2024 17:40-0400 Heart rate 62 /min Fiorella Forrest PHOTOGRAPHIC SPOTTER Work Phone: [facility] 03-22-2024 17:40-0400 SaO2% (BldA) [Mass fraction] 99 % Fiorella Forrest PHOTOGRAPHIC SPOTTER Work Phone: [facility] 03-22-2024 17:40-0400 Systolic blood pressure 128 mm[Hg] Fiorella Forrest PHOTOGRAPHIC SPOTTER Work Phone: [facility] 01-21-2024 15:19-0400 Body height 165.1 cm DO Alexandro Ball Work Phone: [facility] 01-21-2024 15:19-0400 Body mass index (BMI) [Ratio] 25.2 kg/m2 DO Alexandro Ball Work Phone: [facility] 01-21-2024 15:19-0400 Body temperature 96.9 [degF] DO Alexandro Ball Work Phone: [facility] 01-21-2024 15:19-0400 Body weight 68.66 kg DO Alexandro Ball Work Phone: [facility] 01-21-2024 15:19-0400 Diastolic blood pressure 71 mm[Hg] DO Alexandro Ball Work Phone: [facility] 01-21-2024 15:19-0400 Heart rate 67 /min DO Alexandro Ball Work Phone: [facility] 01-21-2024 15:19-0400 Respiratory rate 18 /min DO Alexandro Ball Work Phone: [facility] 01-21-2024 15:19-0400 SaO2% (BldA) [Mass fraction] 98 % DO Alexandro Ball Work Phone: [facility] 01-21-2024 15:19-0400 Systolic blood pressure 125 mm[Hg] DO Alexandro Ball Work Phone: [facility] 10-05-2023 09:05-0400 Body height 165.1 cm [facility] 10-05-2023 09:05-0400 Body mass index (BMI) [Ratio] 25 kg/m2 [facility] 10-05-2023 09:05-0400 Body weight 68.26 kg [facility] 10-05-2023 09:05-0400 Diastolic blood pressure 75 mm[Hg] [facility] 10-05-2023 09:05-0400 Heart rate 71 /min [facility] 10-05-2023 09:05-0400 Respiratory rate 12 /min [facility] 10-05-2023 09:05-0400 Systolic blood pressure 129 mm[Hg] [facility] 07-08-2023 15:07-0500 Hourly Rounding Cheko Brown [facility] 07-08-2023 15:07-0500 Promise to Return Cheko Brown [facility] 07-08-2023 14:38-0500 Hourly Rounding Cheko Brown [facility] 07-08-2023 14:38-0500 Promise to Return Cheko Brown [facility] 07-08-2023 13:22-0500 Hourly Rounding Cheko Brown [facility] 07-08-2023 13:22-0500 Promise to Return Cheko Brown [facility] 07-08-2023 12:00-0500 Body temperature 98.06 [degF] Cheko Brown [facility] 07-08-2023 12:00-0500 Diastolic blood pressure 76 mm[Hg] Cheko Brown [facility] 07-08-2023 12:00-0500 Heart rate 71 /min Cheko Brown [facility] 07-08-2023 12:00-0500 SaO2% (BldA) [Mass fraction] 95 % Cheko Ceja [facility] 07-08-2023 12:00-0500 Systolic blood pressure 137 mm[Hg] Cheko Ceja [facility] 07-08-2023 07:55-0500 Heart rate 73 /min Cheko Ceja [facility] 07-08-2023 07:55-0500 SaO2% (BldA) [Mass fraction] 96 % Cheko Ceja [facility] 07-08-2023 07:52-0500 Diastolic blood pressure 73 mm[Hg] Cheko Ceja [facility] 07-08-2023 07:52-0500 Mean blood pressure 106 mm[Hg] Cheko Ceja [facility] 07-08-2023 07:52-0500 Systolic blood pressure 172 mm[Hg] Cheko Ceja [facility] 07-08-2023 07:52-0500 Body temperature 98.24 [degF] Cheko Ceja [facility] 07-08-2023 03:30-0500 Body temperature 98.24 [degF] Cheko Ceja [facility] 07-08-2023 03:30-0500 Diastolic blood pressure 60 mm[Hg] Cheko Ceja [facility] 07-08-2023 03:30-0500 Heart rate 73 /min Cheko Ceja [facility] 07-08-2023 03:30-0500 Respiratory rate 16 /min Cheko Ceja [facility] 07-08-2023 03:30-0500 SaO2% (BldA) [Mass fraction] 96 % Cheko Ceja [facility] 07-08-2023 03:30-0500 Systolic blood pressure 131 mm[Hg] Cheko Ceja [facility] 07-07-2023 23:50-0500 Respiratory rate 16 /min Cheko Ceja [facility] 07-07-2023 21:43-0500 Respiratory rate 16 /min Cheko Ceja [facility] 07-07-2023 20:04-0500 Mean blood pressure 115 mm[Hg] Cheko Ceja [facility] 07-07-2023 15:48-0500 Mean blood pressure 101 mm[Hg] Cheko Ceja [facility] 07-07-2023 09:55-0500 Body temperature 96.8 [degF] Cheko Ceja [facility] 07-07-2023 09:25-0500 Body temperature 97.34 [degF] Cheko Ceja [facility] 07-07-2023 09:20-0500 Respiratory rate 12 /min Cheko Ceja [facility] 07-07-2023 09:15-0500 Respiratory rate 14 /min Cheko Ceja [facility] 07-07-2023 09:10-0500 Respiratory rate 14 /min Cheko Ceja [facility] 07-07-2023 06:02-0500 Heart rate 76 /min Cheko Ceja [facility] 06-22-2023 14:42-0500 Body temperature 98.06 [degF] Cheko Bunchball [facility] 06-22-2023 14:42-0500 Diastolic blood pressure 83 mm[Hg] Cheko Ceja [facility] 06-22-2023 14:42-0500 Heart rate 71 /min Cheko Ceja [facility] 06-22-2023 14:42-0500 Mean blood pressure 100 mm[Hg] Cheko Ceja [facility] 06-22-2023 14:42-0500 Respiratory rate 17 /min Cheko Ceja [facility] 06-22-2023 14:42-0500 SaO2% (BldA) [Mass fraction] 97 % Cheko Ceja [facility] 06-22-2023 14:42-0500 Systolic blood pressure 133 mm[Hg] Cheko Ceja [employer] [facility] 06-22-2023 14:41-0500 Diastolic blood pressure 87 mm[Hg] Cheko Ceja [facility] 06-22-2023 14:41-0500 Systolic blood pressure 130 mm[Hg] Cheko Ceja [facility] 04-14-2023 09:30-0400 Body height 165.1 cm Alexandro Ball Other [employer] [facility] [employer] Other 04-14-2023 09:30-0400 Body mass index (BMI) [Ratio] 26.26 kg/m2 Alexandro Ball Other [employer] Other 04-14-2023 09:30-0400 Body weight 71.58 kg Alexandro Ball Other [employer] Other 04-14-2023 09:30-0400 Diastolic blood pressure 73 mm[Hg] Alexandro Ball Other [employer] Other 04-14-2023 09:30-0400 Respiratory rate 12 /min Alexandro Ball Other [employer] Other 04-14-2023 09:30-0400 Systolic blood pressure 139 mm[Hg] Alexandro Ball Other [employer] Other 07-13-2022 15:30-0500 Body height 165.1 cm Alexandro Ball Other [employer] Other 07-13-2022 15:30-0500 Body mass index (BMI) [Ratio] 28.69 kg/m2 Alexandro Ball Other [employer] Other 07-13-2022 15:30-0500 Body weight 78.2 kg Alexandro Ball Other [employer] Other 07-13-2022 15:30-0500 Diastolic blood pressure 70 mm[Hg] Alexandro Ball Other [employer] Other 07-13-2022 15:30-0500 Respiratory rate 12 /min Alexandro Ball Other [employer] Other 07-13-2022 15:30-0500 Systolic blood pressure 98 mm[Hg] Alexandro Ball Other [employer] Other Encounters Encounter Date Encounter Type Care Provider Facility Start: 02-12-2025 End: 02-12-2025 ambulatory Alexandro Rosario DO Work Phone: [facility] Work Phone: Start: 02-12-2025 End: 02-12-2025 Patient encounter procedure Alexandro Abraham DO [facility] Work Phone: Start: 01-30-2025 End: 01-30-2025 Bamboo flowsheet Cheko Ceja DO Work Phone: [facility] Start: 01-30-2025 End: 01-30-2025 Bamboo flowsheet Cheko Aravind Ceja DO Work Phone: [facility] Start: 01-30-2025 End: 01-30-2025 Patient encounter procedure Cheko Aravind Ceja DO Work Phone: [facility] Comment on above: Presence of artifici al knee joint, right (Primary Dx) Start: 01-30-2025 End: 01-30-2025 ambulatory CHEKO CEJA Not Available Start: 01-19-2025 End: 01-19-2025 ambulatory [facility] DO Work Phone: [facility] Work Phone: Start: 01-19-2025 End: 01-19-2025 Patient encounter procedure Lauren Ramos MD [facility] Work Phone: Start: 01-16-2025 End: 01-16-2025 ambulatory JERAMY BAXTER Not Available Start: 01-16-2025 End: 01-16-2025 Office outpatient visit 15 minutes Jeramy Baxter [employer]GR[employer] Work Phone: [facility] Comment on above: Pressure sensation i n both ears (Primary Dx); Bilateral impacted cerumen Start: 11-06-2024 End: 11-06-2024 ambulatory [facility] Work Phone: Start: 11-06-2024 End: 11-06-2024 [facility] Work Phone: Start: 10-18-2024 End: 10-18-2024 ambulatory [facility] Work Phone: Start: 10-18-2024 End: 10-18-2024 [facility] encounter [facility] Work Phone: Start: 10-09-2024 End: 10-09-2024 ambulatory JERAMY BAXTER Not Available Start: 10-09-2024 End: 10-09-2024 Office outpatient visit 15 minutes Jeramy Baxter [employer]GR[employer] Work Phone: [facility] Comment on above: Left ear pain (Prima ry Dx); Acute mucoid otitis media of left ear Start: 10-05-2024 End: 10-05-2024 ambulatory [facility] Work Phone: Start: 10-05-2024 End: 10-05-2024 Patient encounter procedure [facility] Work Phone: Start: 08-03-2024 End: 08-03-2024 Bamboo flowsleonardo Brown MD [facility] Start: 08-03-2024 End: 08-03-2024 Essence Brown [facility] Start: 08-03-2024 End: 08-03-2024 Office outpatient visit 15 minutes Morgan Brown MD Work Phone: [facility] Comment on above: Osteoporosis, post-m enopausal (CMS/HCC) (Primary Dx) Start: 08-03-2024 End: 08-03-2024 ambulatory MORGAN Gaytan PRINTY Not Available Start: 07-19-2024 End: 07-19-2024 ambulatory MORGAN Gaytan PRINTY Not Available Start: 05-04-2024 End: 05-04-2024 ambulatory [facility] Work Phone: Start: 05-04-2024 End: 05-04-2024 Patient encounter procedure [facility] Work Phone: Start: 04-17-2024 End: 04-17-2024 Bamboo flowsleonardo Brown MD Work Phone: [facility] Start: 04-17-2024 End: 04-17-2024 Essence Brown MD Work Phone: [facility] Start: 04-17-2024 End: 04-17-2024 Office outpatient visit 25 minutes Morgan Brown MD Work Phone: [facility] Comment on above: Osteopenia, unspecif ied location; Other screening mammogram; Osteoporosis screening; Asymptomatic menopausal state Start: 04-17-2024 End: 04-17-2024 ambulatory MORGAN BROWN Not Available Start: 03-28-2024 End: 04-05-2024 Telephone encounter Morgan Brown MD Work Phone: [facility] Start: 03-22-2024 End: 03-22-2024 Office outpatient visit 25 minutes Fiorella Forrest PHOTOGRAPHIC SPOTTER Work Phone: [facility] Comment on above: Acute cystitis with hematuria (Primary Dx); Dysuria; Bilateral impacted cerumen Start: 03-22-2024 End: 03-22-2024 ambulatory FIORELLA FORREST Not Available Start: 03-16-2024 End: 03-16-2024 Bamboo flowsheet Tere A Felter [employer] Work Phone: [facility] Start: 03-16-2024 End: 03-16-2024 Bamboo flowsheet Tere A Felter [employer] Work Phone: [facility] Start: 03-16-2024 End: 03-16-2024 ambulatory TERE A FELTER Not Available Start: 03-16-2024 End: 03-16-2024 Office outpatient visit 15 minutes Tere A Felter [employer] Work Phone: [facility] Comment on above: Actinic keratosis; Seborrheic keratosis; EIC (epidermal inclusion cyst) Start: 01-21-2024 End: 01-21-2024 ambulatory DO Alexandro Rosario Work Phone: [facility] Work Phone: Start: 01-21-2024 End: 01-21-2024 Patient encounter procedure DO Alexandro [facility]ario [facility] Work Phone: Start: 11-02-2023 Non-patient / Non-visit DO Miles Rosario [facility] Work Phone: Start: 10-05-2023 End: 10-05-2023 ambulatory [facility] Work Phone: Start: 10-05-2023 End: 10-05-2023 Patient encounter [facility] Work Phone: Start: 08-19-2023 Bamboo flowsheet Cheko Ceja DO Work Phone: [facility] Start: 08-19-2023 Bamboo flowsheet Cheko Ceja DO Work Phone: [facility] Start: 08-16-2023 End: 08-16-2023 Admission to same day surgery center Radha Delgado NEWS DIRECTOR [facility] Comment on above: Primary osteoarthrit is of right knee (Primary Dx); Right anterior knee pain; Aftercare following right knee joint replacement surgery Start: 08-16-2023 End: 08-16-2023 ambulatory Radha Delgado NEWS DIRECTOR [facility] Start: 08-13-2023 End: 08-13-2023 Admission to same day surgery center Radha Delgado NEWS DIRECTOR [facility] Comment on above: Primary osteoarthrit is of right knee (Primary Dx); Right anterior knee pain; Aftercare following right knee joint replacement surgery Start: 08-13-2023 End: 08-13-2023 ambulatory Radha Delgado NEWS DIRECTOR [facility] Start: 08-06-2023 Bamboo flowsheet Radha Delgado NEWS DIRECTOR [facility] Start: 08-06-2023 Bamboo flowsheet Radha Delgado NEWS DIRECTOR [facility] Start: 08-06-2023 End: 08-06-2023 Admission to same day surgery center Radha Delgado NEWS DIRECTOR [facility] Comment on above: Primary osteoarthrit is of right knee (Primary Dx); Right anterior knee pain; Aftercare following right knee joint replacement surgery Start: 08-06-2023 End: 08-06-2023 ambulatory Radha Delgado NEWS DIRECTOR [facility] Start: 07-28-2023 End: 07-28-2023 ambulatory Alexandro Abraham Other [employer] Other Start: 07-28-2023 Telephone encounter Alexandro MARCH [facility] Start: 07-07-2023 End: 07-08-2023 ambulatory Cheko Aravind Ceja Facility:[facility] Start: 07-07-2023 End: 07-08-2023 Observation Cheko Aravind Ziyad [facility] Start: 06-22-2023 End: 06-23-2023 ambulatory Cheko Aravind Ziyad Facility:[facility] Start: 06-22-2023 End: 06-22-2023 Patient encounter procedure Cheko Aravind Ziyad [facility] Start: 06-16-2023 End: 06-16-2023 ambulatory Alexandro Abraham Other [employer] Other Start: 06-16-2023 Telephone encounter Alexandro MARCH [facility] Start: 05-07-2023 End: 05-07-2023 ambulatory Alexandro Abraham Other [employer] Other Start: 05-07-2023 Nursing evaluation o f patient and report Alexandro Rosario [facility] Start: 05-05-2023 End: 05-05-2023 ambulatory Cheko Aravind Ceja Facility:[facility] Start: 05-05-2023 End: 05-05-2023 Admission to same day surgery center Cheko Aravind Ziyad [facility] Start: 05-03-2023 End: 05-04-2023 ambulatory Cheko Aravind Ziyad Facility:[facility] Start: 04-20-2023 End: 04-21-2023 ambulatory Cheko Aravind Ziyad Facility:[facility] Start: 04-14-2023 End: 04-14-2023 ambulatory Alexandro Abraham Other [employer] Other Start: 04-14-2023 Encounter for other preprocedural examination Alexandro Rosario [facility] Start: 04-14-2023 Office outpatient vi sit 25 minutes Aleaxndro Rosario [facility] Start: 09-15-2022 End: 09-15-[address] ALEXANDRO ROSARIO Facility:[facility] Start: 09-15-2022 Office outpatient vi sit 15 minutes Alexandro Rosario [facility] Start: 07-13-2022 End: 07-13-2022 ambulatory Alexandro Rosario Other [employer] Other Start: 07-13-2022 Office outpatient vi sit 25 minutes Alexandro Rosario [facility] Start: 07-13-2022 Telephone encounter Lena Holtney [facility] Start: 05-12-2022 End: 05-13-[address] ALEXANDRO ROSARIO Facility:[facility] Start: 05-08-2022 End: 05-08-2022 ambulatory DO Alexandro Rosario Work Phone: [facility] Work Phone: Start: 05-08-2022 End: 05-08-2022 Patient encounter procedure DO Alexandro Rosario Work Phone: [facility] Start: 04-15-2022 End: 04-16-[address] ALEXANDRO ROSARIO Facility:[facility] Start: 04-09-2022 End: 04-10-[address] ALEXANDRO ROSARIO Facility:[facility] Start: 11-16-2020 End: 11-16-2020 Departed Referred Alexandro Rosario Work Phone: [facility] Start: 10-16-2020 End: 10-16-2020 Patient encounter procedure Alexandro Rosario Work Phone: -[facility] Start: 02-02-2018 End: 02-02-2018 Patient encounter Piyush White Facility:[facility] Start: 12-23-2017 End: 12-24-2017 Ambulatory SARAH MUSTAFA Facility:[facility] Start: 11-16-2017 End: 11-17-2017 Ambulatory DEFAULT PHYSICIAN Facility:[facility] Procedures Date Procedure Procedure Detail Performing Clinician Start: 01-30-2025 Radiologic examinati on knee 3 views Cheko Ceja DO Work Phone: Start: 03-22-2024 Urnls dip stick/tabl et rgnt auto w/o microscopy Fiorella Forrest PHOTOGRAPHIC SPOTTER Work Phone: Start: 03-16-2024 CRYOTHERAPY SKIN LESION Tere Sidhu [employer] Work Phone: Start: 01-21-2024 Plain chest X-ray DO Be pia Rosario Work Phone: Start: 07-07-2023 Total knee replacement Cheko Ceja Start: 05-08-2022 Screening mammograph y of bilateral breasts DO Alexandro Rosario Work Phone: Start: 06-09-2021 Colonoscopy Cheko jackson Comment on above: tansverse colon poly p, IH Start: 10-16-2020 X-ray of right knee Miles carlos Rosario Work Phone: Start: 09-01-2019 Colonoscopy Piyush Purvis [facility] Start: 07-05-1995 Lumpectomy of breast Gordo Ceja Bilateral cataracts (disorder) Cheko Ceja Dilation and curettage Cheko Ceja History of tonsillectomy Jama Ceja Plan of Treatment Date Care Activity Detail Author Start: 04-18-2025 End: 04-18-2025 Patient encounter procedure [facility] Start: 03-19-2025 End: 03-19-2025 Patient encounter procedure [facility] Start: 03-05-2025 Influenza vaccination Influenza Vacc ine (#1) [facility] Start: 01-30-2025 End: 01-30-2025 Patient encounter procedure [facility] Comment on above: Arrived Start: 08-03-2024 End: 08-03-2024 Patient encounter procedure 08/03/2024 1:45 PM EST Office Visit [facility] [address] [place] [address] Morgan Brown MD [address] [place] [address] Age related osteoporosis, unspecified pathological fracture presence (CMS/HCC) [facility] Comment on above: Age related osteopor osis, unspecified pathological fracture presence (CMS/HCC) Start: 05-11-2024 End: 06-13-2025 DBT Breast - bilateral screening Bilateral screening mammogram with tomosynthesis Imaging Routine Other screening mammogram Expected: 05/11/2024, Expires: 06/13/2025 [facility] Work Phone: Comment on above: Expected: 05/11/2024 , Expires: 06/13/2025 Start: 04-17-2024 End: 04-17-2025 DXA Skeletal system Views for bone density DEXA bone density Imaging Routine Osteoporosis screening Asymptomatic menopausal state Expected: 04/17/2024, Expires: 04/17/2025 [facility] Comment on above: Expected: 04/17/2024 , Expires: 04/17/2025 Start: 04-17-2024 End: 04-17-2024 Patient encounter procedure [facility] Comment on above: Osteopenia, unspecif ied location; Other screening mammogram Start: 03-20-2024 End: 03-20-2024 Patient encounter procedure 03/20/2024 11:30 AM EDT Office Visit [facility] [address] [address] [place] [address] Morgan Brown MD [address] [facility] [address] [place], [place] [id number] [facility] Start: 03-05-2024 Influenza vaccination Influenza Vacc ine (#1) [facility] Start: 08-20-2023 End: 08-20-2023 ambulatory 08/20/2023 11:15 AM EST Treatment [facility] [address] [place] [address] Prieto Ulrich, PT [address] [place] [address] [facility] Start: 08-19-2023 End: 08-19-2023 Patient encounter procedure 08/19/2023 10:30 AM EST Office Visit [facility] [address] [place] [phone] Cheko Ceja, DO [address] [place] [address] [facility] Start: 08-16-2023 End: 08-16-2023 ambulatory 08/16/2023 11:30 AM EST Treatment [facility] [address] [place] [phone] Radha Delgado PTA [facility] Start: 08-13-2023 End: 08-13-2023 ambulatory 08/13/2023 11:15 AM EST Treatment [facility] [address] [place] [phone] Radha Delgado PTA [facility] Start: 08-09-2023 End: 08-09-2023 ambulatory 08/09/2023 11:30 AM EST Treatment [facility] [address] [place] [phone] Prieto Ulrich, PT [address] [place] [phone] [facility] Start: 08-06-2023 End: 08-06-2023 ambulatory 08/06/2023 11:00 AM EST Treatment [facility] [address] [place] [phone] Radha Delgado PTA Arrived [facility] Comment on above: Arrived Start: 03-05-2023 Influenza vaccination Influenza Vacc ine (#1) [facility] Start: 02-28-2020 [facility] Work Phone: Start: 05-05-2018 Pneumococcal Vaccine : 65+ Years (2 - PPSV23 or PCV20) Pneumococcal Vaccine: 65+ Years (2 - PPSV23 or PCV20) [facility] Start: 05-05-2018 Pneumococcal Vaccine : 65+ Years (2 of 2 - PPSV23 or PCV20) Pneumococcal Vaccine: 65+ Years (2 of 2 - PPSV23 or PCV20) [facility] Start: 04-10-2017 Pneumococcal Vaccine : 65+ Years (2 of 2 - PPSV23) Pneumococcal Vaccine: 65+ Years (2 of 2 - PPSV23) [facility] US Lower extremity vein - right [facility] NEGATED: Highlighted row has been ruled out! Planned Goals not documented [facility] [employer] Work Phone: Immunizations Immunization Date Immunization Notes Care Provider Sari donovan 05-04-2024 influenza, high dose seasonal, preservative-free [facility] 05-04-2024 influenza virus vaccine, unspecified formulation Jeramy Baxter NP Work Phone: [facility] 04-14-2023 influenza virus vaccine, unspecified formulation [facility] 04-14-2023 influenza, high dose seasonal, preservative-free Alexandro Rosario Other [employer] Other 07-14-2022 Moderna SARS-CoV-2 50mcg/0.5mL Booster Radha Delgado PTA [facility] 04-08-2022 influenza virus vaccine, unspecified formulation Radha Delgado PTA [facility] 04-04-2021 influenza virus vaccine, unspecified formulation Cheko Ceja [facility] 08-14-2020 COVID-19, mRNA, LNP- S, PF, 30 mcg/0.3 mL dose Cheko Bunchball [facility] Comment on above: Reason for Medicatio n: Other (see comment) 07-24-2020 COVID-19, mRNA, LNP- S, PF, 30 mcg/0.3 mL dose Cheko Ceja [facility] Comment on above: Reason for Medicatio n: Other (see comment) 04-10-2016 pneumococcal conjuga te vaccine, 13 valent Radha Delgado PTA [facility] 03-05-2015 zoster vaccine, live Radha PATEL [facility] Payers Date Payer Category Payer Unknown 2017 Private Health Insurance [id number] 2017 Unknown [id number] 2003 Medicare [id number] 1959 Medicare [id number] 1959 Unknown [id number] 1938 Unknown [id number] 2.16.84 [id number] 1938 Unknown [id number] 2.16.84 0.1.945912.3.579.2.593 1938 Unknown [id number] 2.16.84 0.1.501850.3.579.2.593 1938 Unknown [id number] 2.16.84 0.1.216340.3.579.2.593 1938 Unknown [id number] 2.16.8 40.1.819075.3.579.2.727 1938 Unknown [id number] 2.16.8 40.1.310723.3.579.2.727 1938 Unknown [id number] 2.16.8 40.1.250618.3.579.2.727 1938 Unknown [id number] 2.16.8 40.1.058121.3.579.2.727 1938 Unknown [id number] 2.16.8 40.1.291300.3.579.2.727 1938 Unknown [id number] 2.16.8 40.1.536316.3.579.2.1259 1938 Unknown [id number] 2.16.8 40.1.677634.3.579.2.1259 1938 Unknown [id number] 2.16.8 40.1.207665.3.579.2.1259 1938 Unknown [id number] 2.16.84 0.1.073720.3.579.2.1258 1938 Unknown [id number] 2.16.84 0.1.451109.3.579.2.1258 1938 Unknown [id number] 2.16.84 0.1.282657.3.579.2.1258 1938 Unknown [id number] 2.16.84 0.1.899944.3.579.2.1258 1938 Unknown [id number] 2.16.84 0.1.688636.3.579.2.1258 1938 Unknown [id number] 2.16.84 0.1.904140.3.579.2.1258 1938 Unknown [id number] 2.16.84 0.1.785401.3.579.2.9 Medicare [id number] Self-pay Self Pay [id number] Social History Date Type Detail Facility Assertion Tobacco smoking consumption unknown (finding) [facility] Work Phone: Start: 1940 Sex Assigned At Female F [facility] Start: 07-22-2023 End: 01-30-2025 Sex Assigned At [facility] Start: 06-19-2021 End: 11-28-2022 Tobacco smoking status Never smoked tobacco (finding) [facility] Tobacco smoking status Never [facility] Start: 11-28-2022 Tobacco use and exposure Smokeless tobacco non-user [facility] Start: 07-22-2023 End: 01-30-2025 Alcohol intake Lifetime non-drinker (finding) [facility] Start: 07-22-2023 End: 01-30-2025 History of Social function [facility] Start: 11-27-2022 Alcohol Comment Caffeine intak e: more than 4 cups per day decaf coffee [facility] Start: 1940 Sex Assigned At Not on file [facility] Tobacco smoking stat us NHIS Unknown if ever smoked [facility] Work Phone: Start: 10-05-2024 End: 11-06-2024 Sex Female (finding) [facility] Equipment Procedure Code Equipment Code Equipment Origin al Text Equipment Identifier Dates KNEE TOTAL ROBOT ARTHROPLASTY Cheko Ceja DO 07/07/23 Unknown Knee R FDA Start: 07-07-2023 KNEE TOTAL ROBOT ARTHROPLASTY Cheko Ceja DO 07/07/23 Unknown Knee R FDA Start: 07-07-2023 KNEE TOTAL ROBOT ARTHROPLASTY Cheko Ceja DO 07/07/23 Unknown Knee R FDA Start: 07-07-2023 KNEE TOTAL ROBOT ARTHROPLASTY Cheko Ceja DO 07/07/23 Unknown Knee R FDA Start: 07-07-2023 Functional Status Date Assessment Result Facility NEGATED: Highlighted row Functional performance Functional status health issues are not documented Disease [facility] [employer] Work Phone: Mental Status Date Assessment Result Facility NEGATED: Highlighted row Cognitive function [Interpretation] Cognitive status health issues are not documented Disease [facility] [employer] Work Phone: Clinical Notes 07-13-2022 to 01-30-2025 Cheko Ceja DO - 01/30/2025 10:00 AM EDT Note Date & Type Note Facility 01-30-2025 History of Presen t illness Narrative Images from the original note were not included. @DERIANROMANTE@ Roselia Goins Ginger is a 84 y.o. female who presents [...] tablet 1 tablet, Oral, 2 times daily with meals ALLERGIES: Allergies Allergen Reactions Cortisone Unknown Prednisone Rash and Unknown Triamcinolone Acetonide Rash SURGICAL HISTORY: Past Surgical History: Procedure Laterality Date BREAST LUMPECTOMY Left COLONOSCOPY x2 COLONOSCOPY 03/2021 DILATION AND CURETTAGE [place] TONSILLECTOMY & ADENOIDECTOMY AGE 10/> TOTAL KNEE ARTHROPLASTY Right 07/07/2023 Dr. Cheko Ceja @ [facility] VAGINAL DELIVERY x2 FAMILY HISTORY: [...] 153 lb LMP (LMP Unknown) BMI 27.10 kg/m OB Status Postmenopausal Smoking Status Never BSA 1.76 m Physical Exam Alert and oriented, no acute [...] prosthetic wear or loosening. No periprosthetic fractures. ASSESSMENT [...] she should consult with her PCP Dr. Rosario. Further evaluation of her circulation may be [...] Do all this for 7 days. Cheko Ceja D.O. Attestation This note was created using voice recognition through [employer]. documented in this encounter [facility] 01-19-2025 Evaluation note Diagnosis Onset Date Resolution UTI (urinary tract infection) acute January 19, 2025 2:29pm Cellulitis of leg, right acute February 12 1:46pm Pain and swelling of right lower leg acute February 12 1:46pm Varicose veins of both lower extremities acute February 12 025 1:46pm Hx of total knee arthroplasty noneactive February 12 1:46pm [facility] Work Phone: 1(227) 952-757607-15-2025 History of Present illness Narrative* Jeramy Baxter, PHOTOGRAPHIC SPOTTER - 01/16/2025 4:25 PM EDT Images from the original note were not included. [address], [address] [facility], [address] P: [phone] F: [phone] HPI Historian of HPI: patient Roselia Miles is a 84 y.o. female who presents today to the Urgent Care with the following complaints and denials which have been present for 1 week(s). C/O Denies Symptom Comments [] [x] Runny Nose [] [x] Difficulty Swallowing [] [x] Sore Throat [] [x] Cough [] [x] Ear Pain [] [x] Fever [] [x] Chills [] [x] Nasal Congestion [] [x] Myalgia [] [x] Sinus Pain [] [x] Sinus Pressure Additional Comments: pt has not taken any OTC medications Pt was told she needs a bilateral ear lavage for her hearing aids. ROS A complete system ROS was performed and negative aside from the pertinent positives noted in the HPI and PE. Visit Vitals BP 134/62 Pulse 66 Temp 97.6 F Resp 20 LMP (LMP Unknown) SpO2 96% OB Status Postmenopausal Smoking Status Never PHYSICAL EXAM Physical Exam Vitals reviewed. Constitutional: General: She is not in acute distress. Appearance: Normal appearance. HENT: Head: Normocephalic and atraumatic. Right Ear: Decreased hearing noted. There is impacted cerumen. Left Ear: Decreased hearing noted. There is impacted cerumen. Ears: Comments: Bilateral hearing aides Nose: Nose normal. Mouth/Throat: Mouth: Mucous membranes are moist. Pharynx: Oropharynx is clear. Eyes: Extraocular Movements: Extraocular movements intact. Conjunctiva/sclera: Conjunctivae normal. Pupils: Pupils are equal, round, and reactive to light. Cardiovascular: Rate and Rhythm: Normal rate. Pulses: Normal pulses. Pulmonary: Effort: Pulmonary effort is normal. No respiratory distress. Breath sounds: No wheezing, rhonchi or rales. Musculoskeletal: General: Normal range of motion. Cervical back: Normal range of motion and neck supple. Skin: General: Skin is warm and dry. Capillary Refill: Capillary refill takes less than 2 seconds. Findings: No rash. Neurological: General: No focal deficit present. Mental Status: She is alert and oriented to person, place, and time. Psychiatric: Mood and Affect: Mood normal. Behavior: Behavior normal. Thought Content: Thought content normal. Judgment: Judgment normal. TREATMENT PLAN 1. Pressure sensation in both ears (Primary) Presents today for evaluation of possible cerumen impaction. She wears bilateral hearing aides and has noted a decrease in hearing. Acetaminophen or Ibuprofen for reduction of pain. Call PCP office if symptoms have not started to improve within the next 72 hours. Patient verbalized understanding ofinstructions. 2. Bilateral impacted cerumen Ears lavaged successfully using H202 and warm water. No instruments used for removal of cerumen. Recommended use of 1/2 strength hydrogen peroxide rinses three times weekly to manage cerumen accumulation. Follow up as needed for repeat lavage. documented in this [facility]05-05-2025 Evaluation note* Diagnosis Onset Date Resolution Status Admit Date SNHL (sensorineural hearing loss) acute November 06, 2024 8: 52am External otitis noneactive November 06, 2024 8:52am [facility] Work Phone: 1([phone]) 430-605704-07-2025 History of Present illness Narrative* Jeramy Baxter NP - 10/09/2024 2:25 PM EDT Images from the original note were not included. [address] , [address] [facility], [address] P: [phone] F: [phone] HPI Historian of HPI: patient Roselia Miles is a 83 y.o. female who presents today to the Urgent Care with the following complaints and denials which have been present for 3 day(s). C/O Denies Symptom Comments [x] [] Runny Nose [] [x] Difficulty Swallowing [] [x] Sore Throat [] [x] Cough [x] [] Ear Pain Left ear pain, pressure, hard of hearing [] [x] Fever [] [x] Chills [] [x] Nasal Congestion [] [x] Myalgia [] [x] Sinus Pain [] [x] Sinus Pressure Additional Comments: pt has taken tylenol OTC medication with relief ROS A complete system ROS was performed and negative aside from the pertinent positives noted in the HPI and PE. Visit Vitals BP 118/66 (BP Location: Left arm, Patient Position: Sitting, BP Cuff Size: Large adult) Pulse 78 Temp 98.7 F Wt 141 lb LMP (LMP Unknown) SpO2 98% BMI 24.98 kg/m OB Status Postmenopausal Smoking Status Never BSA 1.69 m IH Testing: PHYSICAL EXAM Physical Exam Vitals reviewed. Constitutional: General: She is not in acute distress. Appearance: Normal appearance. HENT: Head: Normocephalic. Right Ear: Tympanic membrane, ear canal and external ear normal. Decreased hearing noted. Left Ear: External ear normal. Decreased hearing noted. Swelling present. A middle ear effusion is present. Tympanic membrane is erythematous and retracted. Ears: Comments: Wearing bilateral hearing aides LEFT ear canal swelling Nose: Nose normal. Mouth/Throat: Mouth: Mucous membranes are moist. Pharynx: Oropharynx is clear. Eyes: Extraocular Movements: Extraocular movements intact. Conjunctiva/sclera: Conjunctivae normal. Pupils: Pupils are equal, round, and reactive to light. Cardiovascular: Rate and Rhythm: Normal rate and regular rhythm. Pulses: Normal pulses. Heart sounds: Normal heart sounds. Pulmonary: Effort: Pulmonary effort is normal. No respiratory distress. Breath sounds: No wheezing, rhonchi or rales. Musculoskeletal: General: Normal range of motion. Cervical back: Normal range of motion and neck supple. Skin: General: Skin is warm and dry. Findings: No rash. Neurological: General: No focal deficit present. Mental Status: She is alert and oriented to person, place, and time. Psychiatric: Mood and Affect: Mood normal. TREATMENT PLAN 1. Left ear pain (Primary) -Begin daily antihistamine (Zyrtec, rosmery or generic version of either). - Avoidance of triggers if possible -Symptomatic treatment of pain with Ibuprofen or Tylenol -Symptomatic treatment of nasal congestion with behind the counter children's Mucinex as directed -Nasal saline rinse/mist spray PRN-Use humidifier or vaporizer at night -Get plenty of rest and drinks lots of fluids -Good hand washing -Follow up in 2 weeks if not improved or sooner as needed - fluticasone (Flonase) 50 MCG/ACT nasal spray; Administer 1 spray into each nostril Daily Shake gently. Before first use, prime pump. After use, clean tip and replace cap. Dispense: 16 g; Refill: 0 2. Acute mucoid otitis media of left ear New medications as directed. Report side effects of medication to PCP immediately. Monitor fluid intake, urine output. Call office if symptoms do not improve within the next 72 hours. Maintain clean hands as much as possible. Encourage fluids. Avoid exposing child to cigarette smoke. Return to office in 2 weeks for TM recheck. To ER for worsening of symptoms. - amoxicillin (Amoxil) 875 MG tablet; Take 1 tablet (875 mg) by mouth in the morning and 1 tablet (875 mg) before bedtime. Do all this for 7 days. Dispense: 14 tablet; Refill: 0 documented in this encounterColumbia Regional [id number] Evaluation note* Diagnosis Onset Date Resolution Status Admit Date Chronic venous insufficiency acute October 05, 2024 8:56am H/O malignant neoplasm of breast acu te October 05, 2024 8:56am Hypercholesterolemia acute Apri l 2024 8:56am Overweight acute October 05 8:56am Medicare annual wellness vis it, subsequent noneactive October 05, 2024 8:56am [facility] Work Phone: 1(359) 193-764504-03-2025 Evaluation note* Diagnosis Onset Date Resolution Status Admit Date Chronic venous insufficiency acute October 05, 2024 8:56am H/O malignant neoplasm of breast acu te October 05, 2024 8:56am Hypercholesterolemia acute Apri l 2024 8:56am Overweight acute October 05 8:56am Medicare annual wellness vis it, subsequent noneactive October 05, 2024 8:56am SNHL (sensorineural hearing loss) [place] October 18, 2024 11:42am External otitis noneactive October 11:42am Ear pain, left noneactive October 11:42am [facility] Work Phone: 1([phone]) 914-355601-30-2025 History of Present illness Narrative* Morgan Brown MD - 08/03/2024 1:45 PM EST Images from the original note were not included. Morgan Brown MD Obstetrics and Gynecology Patient: Roselia Miles, : 1940 (83 y.o.) DOS 08/03/24 Exam Date: 08/03/2024 HPI: Pt had DEXA that shows a focus of osteoporosis. She is taking Ca +D and she is active Visit Vitals BP 122/70 LMP (LMP Unknown) OB Status Postmenopausal Smoking Status Never OB History Para Term AB Living 2 2 2 0 0 2 SAB IAB Ectopic Multiple Live Births 0 0 0 0 2 # Outcome Date GA Lbr Francis/2nd Weight Sex Type Anes PTL Lv 2 Term Vag-Spont 1 Term Vag-Spont Obstetric Comments Pap: 03/27-Neg BASSEM: HPV Neg Mammo: 05/10/23-Neg (NOMS) DEXA: Ordered last year/not completed? Menopausal Medication and Allergies Medication Documentation Review Audit Reviewed by Jaja Hinds MA (Continuous Linter Drier Operator) on 08/03/24 at 1407 Medication Order Taking? Sig Documenting Provider Last Dose Status calcium carbonate (Os-Juan) 1250 (500 Ca) MG chewable tablet [id number] No Daily Cheko Ceja DO Taking Active calcium-vitamin D3-vitamin K (Viactiv) 500-500-40 MG-UNT-MCG chewable tablet [id number] No Chew 1 tablet in the morning. Historical Provider, Taking Active cephalexin (Keflex) 500 MG capsule [id number] Take 4 pills 30-60 mins before dental appointment with food Cheko Ceja, DO Active ferrous fumarate-vitamin C ER (Radha-Sequeles 65-25) [id number] Take 1 tablet by mouth in the morningand 1 tablet at noon and 1 tablet in the evening. Take with meals. Do not crush, chew, or split.. Morgan Brown MD Active MULTIPLE VITAMIN PO [id number] No Orally Historical Provider, Taking Active pravastatin (Pravachol) 20 MG tablet [id number] No Take 20 mg by mouth in the morning. 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 Cheko Ceja @ [facility] VAGINAL DELIVERY x2 Physical Exam: Objective OBGyn Exam Associated Treatments and Results - ICD-10-CM 1. 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 She agrees to try Fosamax Assessment/Plan No orders of the defined types were placed in this encounter. documented in this encounterColumbia Regional [id number] Telephone encounter Note* Telephone Encounter - Alma Rosa Ha - 04/05/2024 9:50 AM EDT . [facility] [id number] Miscellaneous Notes* Telephone Encounter - Alma Rosa Ha - 04/05/2024 9:50 AM EDT . documented in this encounterColumbia Regional [id number] History of Present illness Narrative* Fiorella Forrest NP - 03/22/2024 5:40 PM EDT HPI: Historian of HPI: patient Roselia Miles is a 83 y.o. female who presents today to the Urgent Care with the following complaints and denials which have been present for 3 day(s) C/O Denies Symptom Comments [x] [] Dysuria [] [x] hematuria [x] [] Urinary frequency [x] [] Urinary incontinence [x] [] Urinary urgency [] [x] Genital itching [] [x] Genital discharge [] [x] Back pain [x] [] Abd pain Additional Comments: pt has not taken any OTC medications ROS: A complete system ROS was performed and negative aside from the pertinent positives noted in the HPI and PE. IH Testing: An In-House UA has been obtianed: Collected by clean catch REFERENCE RANGE Leukocytes: 2+ Nitrite: Negative Protein: Trace PH: 6.0 Blood: 3+ Specific [place]: 1.020 Ketone: Negative Glucose: Negative Neg Neg Neg - Trace mg/dl 5.0-8.0 Neg 1.005-1.030 Neg Neg Examination General Examination: General examination: alert, oriented, normal affect, well-appearing, in no acute distress, well developed, well nourished. Head: normocephalic, atraumatic Eyes: sclera non-icteric Ears: bilateral ear canals with impacted cerumen Skin: normal Heart: no murmurs, regular rate and rhythm, S1, S2 normal Lungs: clear to auscultation bilaterally, good air movement, no wheezes, rales, rhonchi Abdomen: Suprapubic tenderness, no hepatosplenomegaly, no masses palpable. Musculoskeletal: FROM. No cva tenderness Extremities: no edema, no cyanosis Neurologic: nonfocal Psych: alert, oriented, cognitive function intact, cooperative with exam. 1. Dysuria Discussed. See 2. - URINALYSIS ANALYZER TEST - URINARY TRACT INFECTION (HTRX) 2. Acute cystitis with hematuria Diagnosis and treatment discussed. Rest and push fluids. Medication instructions and potential s/e discussed. To ER for fever, chills, nausea, vomiting, or severe back/abd pain. Follow-up with PCP ifno improvement in 3 days. Discussed urinalysis results. Urine sent for culture. Will call with results when available - amoxicillin-clavulanate (Augmentin) 500-125 MG tablet; Take 1 tablet (500 mg) by mouth in the morning and 1 tablet (500 mg) before bedtime. Do all this for 7 days. Dispense: 14 tablet; Refill: 0 3. Bilateral impacted cerumen Diagnosis discussed. Immediate eval for ear pain or loss of hearing. * Fiorella Jung LPN - 03/22/2024 5:40 PM EDT Images from the original note were not included. Patient ID: Roselia Miles is a 83 y.o. female. Procedures bi lat ear lavage with curette spoon, water, and peroxide successful. Pt tolerated well. documented in this encounterColumbia Regional [id number] History of Present illness Narrative* Tere Sidhu, NADEEM-ASSEMBLER PRODUCTION LINE - 03/16/2024 9:50 AM EDT Lesions: Location: Scalp Duration: Few month Quality: painful, denies itch, denies bleeding Modifying factors: aggravated by picking Associated symptoms: non-healing, rough, scaly Treatments: none Established patient Lesions: Location: Back Duration: Years Quality: denies pain, denies itch, denies bleeding Associated symptoms: non-healing Treatments: none General Exam: alert , oriented to person, place, and time , normal affect, well appearing Unaccompanied A focused exam completed based on patient reported problems, see below: 1. Actinic keratosis Mid Parietal Scalp Erythematous scaly papules Patient was counseled regarding these sun-induced growths that can develop into squamous cell carcinoma if left untreated. Discussed treatment with cryotherapy. It was emphasized that any treated lesions that fail to resolve should be re- evaluated. Cryotherapy performed today; see procedure note Diagnosis: Actinic keratosis Indication: Precancerous Location: see skin exam Consent: Verbal consent was obtained and risks were discussed, including, but not limited to risks of scarring, darker or prison guard pigmentary changes, recurrence, incomplete removal and infection. Method: Liquid nitrogen was used to treat the lesion(s) with two 5-10 second freeze-thaw cycles. Number of lesions treated: 1 Post-procedure instructions: Instructions were given orally and in writing. The office will be contacted if the lesion fails to resolve despite treatment, or if a side effect develops such as abnormal crusting, scabbing, redness or tenderness Cryotherapy, skin lesion - Mid Parietal Scalp 2. Seborrheic keratosis Left Buccal Cheek Stuck on verrucous, jiang-brown papules and plaques. Patient was counseled regarding these benign growths. Removal is normally not necessary, but they may be removed if they are symptomatic or for cosmetic reasons. 3. EIC (epidermal inclusion cyst) Mid Back erythematous, subcutaneous nodule Patient was counseled regarding cysts. Although benign, cysts often slowly enlarge and can occasionally become inflamed. Discussed the only way to definitively diagnose the lesion would be to have itremoved and tested. Discussed treatment options including observation vs. excision. Patient elected for observation. Next Visit: 1 year documented in this encounterColumbia Regional [id number] Evaluation + Plan note Extracted from: Title:Discharge Summary Author:Cheko Ceja DO Date:07/08/23 Discharge Information Discharge Summary Information: Admit Date/Time: 07/07/23 05:39Discharge Date/Time: 07/08/23 07:51 Admitting Physician: Cheko Ceja DO Referring Physician for Admission: Cheko Ceja DO Consulting Physicians: none Admitting Diagnoses: DJD R knee procedure: R TKA discharge disposition: home Discharge Diagnoses: Unilateral primary osteoarthritis, right knee Prescription and Home Meds: acetaminophen-oxycodone (Percocet 5 mg-325 mg oral tablet) See Instructions, 1-2 tab(s) Oral q4hr, 40 tab(s), 0 Refill(s) aspirin (aspirin 81 mg Oral EC Tab) 162 mg, 2 tab(s), Oral, Daily, for 30 day(s), 60 tab(s), 0 Refill(s) calcium-vitamin D (Calcium 600+D) 1,200 mg, Oral, Daily, 0 Refill(s) celecoxib (CeleBREX 100 mg Cap) 100 mg, 1 cap(s), Oral, BID, PRN: for pain, 60 cap(s), 2 Refill(s) cephalexin (Keflex 500 mg Cap) 500 mg, 1 cap(s), Oral, q8hr, for 7 day(s), 21 cap(s), 0 Refill(s) docusate (Colace 100 mg Cap) 100 mg, 1 cap(s), Oral, BID, PRN: for constipation, 20 cap(s), 0 Refill(s) multivitamin (Multiple Vitamins Tab) 1 tab(s), Oral, Daily, 0 Refill(s) pravastatin 20 mg, Oral, Daily, 0 Refill(s) [facility]01-04-2024 NoteCRM entered the room to discuss dc planning. PCP, DME and insurance discussed. Patient is alert andinvolved in plan of care. Contact information given and whiteboard updated. Pt will dc with [facility] and [facility]. Pt's family cannot pharmacy picking tech until 3pm. CRM to follow.CentervilleComment on above:Result Comment: Electronically Signed By: Joslyn Hernandez.br\Date and Time Signed: 07/08/23 11:51 [id number] Note Patient: ROSELIA MILES Age: 82 years Sex: Female : 1940 Associated Diagnoses: None Author: Cheko Ceja DO Discharge Information Discharge Summary Information: Admit Date/Time: 07/07/23 05:39 Discharge Date/Time: 07/08/23 07:51 Admitting Physician: Cheko Ceja DO Referring Physician for Admission: Cheko Ceja DO Consulting Physicians: none Admitting Diagnoses: DJD R knee procedure: R TKA discharge disposition: home Discharge Diagnoses: Unilateral primary osteoarthritis, right knee Prescription and Home Meds: acetaminophen-oxycodone (Percocet 5 mg-325 mg oral tablet) See Instructions, 1-2 tab(s) Oral q4hr, 40 tab(s), 0 Refill(s) aspirin (aspirin 81 mg Oral EC Tab) 162 mg, 2 tab(s), Oral, Daily, for 30 day(s), 60 tab(s), 0 Refill(s) calcium-vitamin D (Calcium 600+D) 1,200 mg, Oral, Daily, 0 Refill(s) celecoxib (CeleBREX 100 mg Cap) 100 mg, 1 cap(s), Oral, BID, PRN: for pain, 60 cap(s), 2 Refill(s) cephalexin (Keflex 500 mg Cap) 500 mg, 1 cap(s), Oral, q8hr, for 7 day(s), 21 cap(s), 0 Refill(s) docusate (Colace 100 mg Cap) 100 mg, 1 cap(s), Oral, BID, PRN: for constipation, 20 cap(s), 0 Refill(s) multivitamin (Multiple Vitamins Tab) 1 tab(s), Oral, Daily, 0 Refill(s) pravastatin 20 mg, Oral, Daily, 0 Refill(s)CentervilleComment on above:Result Comment: Electronically Signed By: Cheko Ceja DO\.br\Date and Time Signed: 07/08/23 07:52 [id number] Hospital Discharge instructions Patient Education 07/07/2023 15:19:59 Nando Ceja - Total Knee Arthroplasty (Custom) [place], [place] [facility] DISCHARGE INSTRUCTIONS: TOTAL KNEE ARTHROPLASTY INCISION CARE: The bandage may be changed by your home Physical Therapist at 7 days postoperatively and worn an additional 7 days. A new Mepilex bandage should then be placed. The bandage is waterproof, so you may shower at home. Steri-strips (paper tape strips) may be applied to the incision if any slight wound separation is noted. These should remain in place for five days and then they may come off in the shower. Please notify the office if any increase in redness, tenderness, drainage, fever, or wound separation is noted beyond this point. MEDICATIONS: You may resume your home medications at the time of discharge. Arixtra and Lovenox are mild blood thinners that prevent the development of blood clots in the legs. One of these has been used during your hospitalization. After discharge home you should continue the use of two stomach coated baby Aspirin tablets daily with your largest meal for 30 days after home discharge. Please notify your doctor if you have a stomach sensitivity to Aspirin or history of previous stomach ulcers. Pain medication has been prescribed as well. You may continue to use the pain medication every fourhours as needed. Any narcotic pain medication can cause side effects including stomach upset, constipation, or light-headedness. You should not drive or operate machinery, or drink alcohol while using the narcotic pain medication. You should not use other pain medications with this prescription pain medication unless further directed by your physician. PHYSICAL THERAPY Continue the range of motion and strengthening exercises initiated by Physical Therapy in the hospital. Continue weight bearing, as ordered, to the operated knee as directed in Physical Therapy. This will be with the use of a walker or crutches initially. Physical therapy as begun in the hospital will continue at home, possibly with the business development assistant of Home Health Physical Therapy or in the hospital as an outpatient. When you have become independent withthe physical therapy program, this will then be discontinued as a supervised program and you will be instructed to continue the physical therapy exercises at home. Your exercises are rai to successful rehabilitation. You should gain full extension first, hopefully before hospital discharge, and gain 90 degrees flexion by one month post-op. Do the exercises daily, twice if preferred. DRIVING: Please do not drive for 4-6 weeks pending therapy progress. 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 It is therefore advised not to drive until after yourfirst office visit following surgery. FOLLOW-UP OFFICE VISIT: Cheko Ceja, DO [facility] [address] [place] [address] Reviewed: 11-24 Follow Up Care 06/18/2023 07:44:25 With:ALEXANDRO ROSARIO Address: [address] [place] [id number] Business (1) When: Unknown Comments:No need to see PCP at this time unless systems worsen. With:Cheko Ceja Address: [address] [place] [address] Business (1) When:07/22/2023 14:30:00 [facility]01-03-2024 NotePT Evaluation completed with an AMPAC score of 16/24. Pt was able to perform bed mobility and transfers with CGA. pt was also able to ambulate with FWW with CGA as well. Will follow daily with recommendations to [facility] [id number]12-13-2023 Evaluation note* Encounter Date Diagnosis Assessment Notes Treatment Notes Treatment Clinical Notes Jun, Fatigue (ICD-10 - R53.83) [facility] Other 11-03-2023 Evaluation note* Encounter Date Diagnosis Assessment Notes Treatment Notes Treatment Clinical Notes May, Dysuria (ICD-10 - R30.0) [facility] Other 10-31-2023 Note [id number] 04-14-2023 Evaluation note* Encounter Date Diagnosis Assessment Notes Treatment Notes Treatment Clinical Notes Apr, Pre-op evaluation (ICD-10 - Z01.818) I have seen and examined Mrs. Milse for preoperative evaluation. I have reviewed her medications and instructed her to avoid ASA and NSAIDs for 7 days prior to surgery. I have instructed her to notify our office if she develops any fever, chills or additional symptoms suggestive of an infection. Apr, Elevated cholesterol (ICD-10 - E78.00) Stable, continue treatment w/o interruption Apr, Chronic venous insufficiency of lower extremity (ICD-10 - I87.2) Stable, instructed to avoid salt, elevate and wear compression stockings Apr, Primary osteoarthritis of right knee (ICD-10 - M17.11) Scheduled for TKA [facility] Other 03-14-2023 Evaluation note* Encounter Date Diagnosis Assessment Notes Treatment Notes Treatment Clinical Notes Sep, Acute bronchitis due to other specified organisms (ICD-10 - J20.8) Instructed to use Robitussin or Mucinex for cough, saline or Flonase NS for congestion, Tylenol for pain and fever. COVID and Influenza PCR negative [facility] Other 01-31-2023 Reason for referral (narrative)* Reason 08/04/22 Patient b eing referred with progressive right knee pain, that is interfering with ADL. Diagnosis 1 Pain in right knee ( M25.561) Diagnosis 2 Primary osteoarthrit is of right knee (M17.11) Referral Organization [facility] Jeremy umaña Referring Provider First Name Alexandro Referring Provider Last Name Abraham Referring Provider Specialty Internal Me marshaine Referred Organization [facility] Referred Provider Cheko Ceja Referred Address ,[place], [place],[address] Referred Provider Specialty Orthopedic S urgery Referral Priority Routine Referral Appointment Date 2022-08-04 General Notes Patient was informed several years ago, that her arthritis was severe and joint replacement therapy could be considered. However, at that time, she did not have any activity limiting symptoms. Over the past year, her symptoms have worsened and she is no longer able to continue with ADL. Shalini Mahajan 07/14/2022 10:33:33 AM >received today, noted. attached notes, and XR results, insurance cards. faxed referral Shalini Mahajan 07/21/2022 10:18:23 AM >faxed first attempt letter Shalini Mahajan 07/21/2022 01:53:38 PM >received fax with appt date Shalini Mahajan 08/05/2022 08:03:35 AM >faxed first request for consult notes Shalini Mahajan 08/13/2022 01:13:12 PM >faxed second request for consult notes Shalini Mahajan 08/18/2022 11:41:33 AM >faxed third attempt letter Shalini Mahajan 08/18/2022 02:22:28 PM >notes recieved, and sent to Dr. Rosario for review. Closing referral at this time. Clinical Notes Treatment has been m inimal. She has been using Tylenol 1000mg tid along with a Lidocaine patch and soft knee bracing. I have instructed her on quad exercises and suggested a trial of Voltaren Gel. Requesting referral to Dr. Cheko Ceja in [place]. [facility] Other 01-09-2023 Evaluation note* Encounter Date Diagnosis Assessment Notes Treatment Notes Treatment Clinical Notes Jul, JEAN (dyspnea on exertion) (ICD-10 - R06.09) Evaluation included CXR, PFT, Echo and stress testing. Have not scheduled for CTA. Non smoker w/o hx of asthma. She has hx of breast lumpectomy - radiation? Monitor for now. Jul, Pain in right knee (ICD-10 - M25.561) Hx of bone on bone articulation. Recommend referral to Orthopedics to discuss joint replacement therapy. Jul, Primary osteoarthritis of right knee (ICD-10 - M17.11) Quad exercises, ice/heat and Voltaren Gel. Tylenol 1000mg tid. Jul, Otalgia, right ear (ICD-10 - H92.01) Unknown etiology, refer to ENT for audiogram and consultation Jul, Sensorineural hearin g loss (SNHL) of both ears (ICD-10 - H90.3) Continued use of hearing aids. Audiogram w/ ENT Jul, Body mass index (BMI ) of 25.0 to 29.9 (ICD-10 - E66.3) This patient has been instructed on a low-fat, high-fiber diet. They are instructed to reduce calories, portion sizes and snacks. It is recommended that they exercise for 30 minutes, 3-5 times weekly. Jul, Other chronic pain (ICD-10 - G89.29) Jul, Elevated cholesterol (ICD-10 - E78.00) Diet and exercise with continued statin therapy. [facility] Other Evaluation + Plan note No data available for this section [facility] Future Appointments Appointment Date:07/07/2023 09:30:00 AM Scheduled Provider: Location:[facility] Appointment Type:Surgery FT Diagnostic Tests Pending * Urine Culture 06/22/23 [facility] assessment information available [facility] noteNo InformationNortThe [facility] InSupp[facility] Other Evaluation note* Diagnosis Primary osteoarthritis of right knee- Primary Right anterior knee pain Aftercare following right knee joint replacement surgery documented in this encounter [facility]* Diagnosis Primary osteoarthritis of right knee- Primary Right anterior knee pain Aftercare following right knee joint replacement surgery documented in this encounter [facility] note* Diagnosis Primary osteoarthritis of right knee- Primary Right anterior knee pain Aftercare following right knee joint replacement surgery documented in this encounter [facility] HealthcareEvaluation note* Diagnosis Onset Date Resolution Status Elevated cholesterol acute H/O malignant neoplasm of breast acute Medicare annual wellness visit, subsequent noneactive [facility] Work Phone: Evaluation note* Diagnosis Onset Date Resolution Status Contusion of left chest wall acute Low back strain acute [facility] Work Phone: evaluation note* Diagnosis Osteopenia, unspecified location Other screening mammogram Osteoporosis screening Special screening for osteoporosis Asymptomatic menopausal state documented in this encounter [facility] note* Diagnosis Actinic keratosis Seborrheic keratosis EIC (epidermal inclusion cyst) Sebaceous cyst Osteopenia, unspecified location Other screening mammogram documented in this encounter [facility]* Diagnosis Acute cystitis with hematuria- Primary Dysuria Bilateral impacted cerumen Impacted cerumen documented in this encounter [facility] note* Diagnosis Osteoporosis, post-menopausal (CMS/HCC)- Primary Senile osteoporosis documented in this encounter [facility] note* Diagnosis Onset Date Resolution Status Admit Date Chronic venous insufficiency acute October 05, 2024 8:56am Elevated cholesterol acute Apri 2024 8:56am H/O malignant neoplasm of breast acute October 05, 2024 8:56am Medicare annual wellness visit, subsequent noneactive October 05 8:56am [facility] Work Phone: Evaluation note* Diagnosis Left ear pain- Primary Unspecified otalgia Acute mucoid otitis media of left ear documented in this encounter [facility] HealthcareEvaluation note* Diagnosis Pressure sensation in both ears- Primary Bilateral impacted cerumen Impacted cerumen documented in this encounter [facility] note* Diagnosis Presence of artificial knee joint, right- Primary documented in this encounter [facility] HealthcareHistory general Narrative - Reported* Type Description Date Medical History hypercholesterolemia Medical History hx on breast CA Medical History varicose veins bilateral LE Medical History chronic venous insufficiency Medical History recurrent occipital headache Medical History cervical spondylosis Medical History eosinophilia Medical History hyperlipidemia type 2 Medical History 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, estrogen receptor positive Medical History Body mass index (BMI) of 25.0 to 29.9 Medical History Breast cancer, left breast Medical History Chronic venous insufficiency of lower extremity Medical History JEAN (dyspnea on exertion) Medical History Eosinophilia, unspecified Medical History Elevated cholesterol Medical History Malignant neoplasm o f overlapping sites of left female breast Medical History Osteoarthritis of left hip Medical History Bilateral central hearing loss Medical History Bilateral tinnitus Medical History Varicose veins of bilateral lowe r extremities with pain Medical History Carotid artery stenosis Surgical History lumpectomy, left breast Surgical History polyp removal Hospitalization History see surgical history [facility] Other History general Narrative - Reported* Type Description Date Medical History hypercholesterolemia Medical History hx on breast CA Medical History varicose veins bilateral LE Medical History chronic venous insufficiency Medical History recurrent occipital headache Medical History cervical spondylosis Medical History eosinophilia Medical History hyperlipidemia type 2 Medical History 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, estrogen receptor positive Medical History Body mass index (BMI) of 25.0 to 29.9 Medical History Breast cancer, left breast Medical History Chronic venous insufficiency of lower extremity Medical History JEAN (dyspnea on exertion) Medical History Eosinophilia, unspecified Medical History Elevated cholesterol Medical History Malignant neoplasm o f overlapping sites of left female breast Medical History Osteoarthritis of left hip Medical History Bilateral central hearing loss Medical History Bilateral tinnitus Medical History Varicose veins of bi lateral lower extremities with pain Medical History Carotid artery stenosis Surgical History lumpectomy, left breast Surgical History polyp removal Surgical History Right TKA 07/2023 Hospitalization History see surgical history [facility] Other History of Present illness Narrative* Morgan Brown MD - 04/17/2024 2:00 PM EDT Images from the original note were not included. Morgan Brown MD Obstetrics and Gynecology Patient: Roselia Miles, : 1940 (83 y.o.) DOS 04/17/24 Exam Date: 04/17/2024 HPI: Pt has osteopenia. She did not get her DEXA last year, but says she will get it this year. She had a knee replacement and is moving well and doing all her own chores Visit Vitals BP 120/70 Wt 141 lb LMP (LMP Unknown) BMI 24.98 kg/m OB Status Postmenopausal Smoking Status Never BSA 1.69 m OB History Para Term AB Living 2 2 2 0 0 2 SAB IAB Ectopic Multiple Live Births 0 0 0 0 2 # Outcome Date GA Lbr Francis/2nd Weight Sex Type Anes PTL Lv 2 Term Vag-Spont 1 Term Vag-Spont Obstetric Comments Pap: 03/27-Neg BASSEM: HPV Neg Mammo: 05/10/23-Neg ([facility]) DEXA: Ordered last year/not completed? Menopausal Medication and Allergies Medication Documentation Review Audit Reviewed by Jaja Hinds MA (Continuous Linter Drier Operator) on 04/17/24 at 1317 Medication Order Taking? Sig Documenting Provider Last Dose Status calcium carbonate (Os-Juan) 1250 (500 Ca) MG chewable tablet [id number] Daily Cheko Ceja, DO Active calcium-vitamin D3-vitamin K (Viactiv) 500-500-40 MG-UNT-MCG chewable tablet [id number] Chew 1 tabletin the morning. Historical Provider, Active MULTIPLE VITAMIN PO [id number] Orally Historical Provider, Active pravastatin (Pravachol) 20 MG tablet [id number] Take 20 mg by mouth in the morning. 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 Cheko Ceja @ [facility] VAGINAL DELIVERY x2 Physical Exam: Objective Physical Exam Constitutional: Appearance: Normal appearance. Genitourinary: Vulva normal. No vaginal discharge or bleeding. Right Adnexa: not palpable. Left Adnexa: not palpable. No cervical lesion. Uterus is not enlarged or tender. Breasts: Right: Normal. Left: Normal. Pulmonary: Effort: Pulmonary effort is normal. Abdominal: General: Abdomen is flat. Palpations: Abdomen is soft. Neurological: Mental Status: She is alert. Associated Treatments and Results - ICD-10-CM 1. Osteopenia, unspecified location M85.80 2. Other screening mammogram Z12.31 Bilateral screening mammogram with tomosynthesis 3. Osteoporosis screening Z13.820 DEXA bone density 4. Asymptomatic menopausal state Z78.0 DEXA bone density Assessment/Plan Orders Placed This Encounter Procedures Bilateral screening mammogram with tomosynthesis U/S and spot compression if indicated Standing Status: Future Standing Expiration Date: 06/13/2025 Order Specific Question: Reason for exam: Answer: screen DEXA bone density Standing Status: Future Standing Expiration Date: 04/17/2025 Order Specific Question: Reason for exam: Answer: screen documented [facility] Discharge instructions No data available for this section [facility] No data available for this section [facility] CenterReason for referral (narrative)No reason for referral information availableR[facility] Work Phone: Summary Purpose Family History No Family History Records FoundNo Family History Records FoundNo Family History Records Found No data available for this section No data available for this section No data available for this section No Family History Records FoundNo Family History Records FoundNo Family History Records Found Advance Directives Advance Directive Response Recorded Date/ Time Advance Directives No September 21 1:16pm Advance Directive Response Recorded Date/ Time Advance Directives No March 11:08am Advance Directive Response Recorded Date/ Time Advance Directives No March 12:08pm Chief Complaint and Reason for Visit Chief Complaint M25.561 Complete Chief Complaint Screening Chief Complaint Medicare Wellness Reason for Visit Elevated cholesterol H/O malignant neoplasm of breast Medicare annual wellness visit, subsequent Chief Complaint fell on left side- s claudine cristina R07.81 - Pleurodynia Reason for Visit Contusion of left ch est wall Low back strain Chief Complaint flu shot Chief Complaint Admit Date wellness October 05, 2024 8:56 am Reason for Visit Admit Date Chronic venous insufficiency October 05, 2024 8:56am Elevated cholesterol October 05, 2024 8:5 6am H/O malignant neoplasm of breast October 052024 8:56am Medicare annual wellness visit, subseque nt October 05, 2024 8:56am Chief Complaint Admit Date wellness October 05, 2024 8:56 am left ear pain October 18, 2024 11: 42am Reason for Visit Admit Date Chronic venous insufficiency October 05, 2024 8:56am H/O malignant neoplasm of breast October 052024 8:56am Hypercholesterolemia October 05, 2024 8:5 6am Overweight October 05, 2024 8:56 am Medicare annual wellness visit, subseque nt October 05, 2024 8:56am Chief Complaint Admit Date wellness October 05, 2024 8:56 am left ear pain October 18, 2024 11: 42am ear wax buildup November 06, 2024 8:52am Reason for Visit Admit Date Chronic venous insufficiency October 05, 2024 8:56am H/O malignant neoplasm of breast October 052024 8:56am Hypercholesterolemia October 05, 2024 8:5 6am Overweight October 05, 2024 8:56 am Medicare annual wellness visit, subseque nt October 05, 2024 8:56am SNHL (sensorineural hearing loss) October 18, 2024 11:42am External otitis October 18, 2024 11: 42am Ear pain, left October 18, 2024 11: 42am Chief Complaint Admit Date ear wax buildup November 06, 2024 8:52am UA:Burning/Frequency January 19, 2025 2:2 9pm Reason for Visit Admit Date SNHL (sensorineural hearing loss) November 8:52am External otitis November 06, 2024 8:52am Chief Complaint Admit Date UA:Burning/Frequency January 19, 2025 2:2 9pm leg pain February 12, 2025 1: 46pm Reason for Visit Admit Date UTI (urinary tract infection) January 19, 2025 2:29pm Cellulitis of leg, right February 12 1:46pm Pain and swelling of right lower leg Feb 1:46pm Varicose veins of both lower extremities February 12, 2025 1:46pm Hx of total knee arthroplasty February 1:46pm Reason for Referral Reason 08/21/2209/02 ENT Patient being referred for right ear pain Diagnosis 1 Otalgia, right ear ( H92.01) Diagnosis 2 Sensorineural hearin g loss (SNHL) of both ears (H90.3) Referral Organization [facility] Abraham umaña Referring Provider First Name Alexandro Referring Provider Last Name Abraham Referring Provider Specialty Internal Me dicine Referred Organization [facility] Referred Provider Elmira Burnette Referred Address ,[place], [place],[address] Referred Provider Specialty Otolaryngolo gy Referral Priority Routine Referral Appointment Date 2022-09-11 General Notes Patient presenting w ith chronic right ear pain. She has SNHL and chronic tinnitus. She denies ear drainage, nasal congestion or dysphagia. She is requesting a referral for audiogram and ENT evaluation with Dr. Burnette in [place] office. Shalini Mahajan 07/14/2022 10:31:21 AM >received today, notes attached and locked, referral faxed Shalini Mahajan 07/21/2022 10:16:31 AM >faxed first attempt letter Shalini Mahajan 07/28/2022 08:59:34 AM >faxed second attempt letter Additional Source Comments INFORMATION SOURCE (unrecogn ized section and content) DATE CREATED AUTHOR 12/24/2017 [facility] DATE CREATED AUTHOR AUTHOR'S ORGANIZ ATION 02/02/2018 [facility] DATE CREATED AUTHOR AUTHOR'S ORGANIZ ATION 09/22/2022 [facility] DATE CREATED AUTHOR AUTHOR'S ORGANIZ ATION 07/13/2023 [facility] DATE CREATED AUTHOR AUTHOR'S ORGANIZ ATION 01/25/2024 [facility] DATE CREATED AUTHOR AUTHOR'S ORGANIZ ATION 02/05/2025 [facility] EPIC Goals (unrecognized section and content) Goals may be documented in a n alternate sectionGoals may be documented in an alternate sectionNo InformationNo InformationNo InformationNo InformationNo Information No data available for this sectionNo InformationNo Information No data available for this section No data available for this sectionNo InformationNo InformationGoals may be documented in an alternate sectionGoals may be documented in an alternate sectionGoals may be documented in an alternate sectionGoals may be documented in an alternate sectionGoals may be documented in an alternate sectionGoals may be documented in an alternate sectionGoals may be documented in an alternate sectionGoals may be documented in an alternate sectionGoals may be documented in an alternate section Care Teams (unrecognized sec tion and content) Team Status: Active Member Role Status Dates Alexandro Rosario DO Primary Care Provider Active Team Status: Inactive Member Role Status Dates Alexandro Rosario DO Primary Care Provide r, Attending Provider Active Start: May 04, 2024 End: May 04, 2024 Team Status: Active Member Role Status Dates Alexandro Rosario DO Primary Care Provide r, Attending Provider Active Start: November 02, 2023 Team Status: Inactive Member Role Status Dates Alexandro Rosario DO Primary Care Provider Active Start: January 21, 2024 End: January 21, 2024 Elvira Chang APRN Attending Provider Active Start: January 21, 2024 End: January 21, 2024 Team Status: Active Member Role Status Dates Alexandro Rosario DO Primary Care Provider Active Start: January 21, 2024 Elvira Chang APRN Attending Provider Active Start: January 21, 2024 Team Status: Inactive Member Role Status Dates Alexandro Rosario DO Primary Care Provide r, Attending Provider Active Start: October 05, 2023 End: October 05, 2023 Team Status: Inactive Member Role Status Dates Alexandro Rosario DO Primary Care Provider Active Morgan Brown MD Attending Provider Active Ticket Worker Relationship Specialty Start Date End Date Alexandro Rosario MD [address] [facility] [place] [address] PCP - General Internal Medicine 03/15/23 Ticket Worker Relationship Specialty Start Date End Date Alexandro Rosario MD [address] [facility] [place] [address] PCP - General Internal Medicine 03/15/23 Ticket Worker Relationship Specialty Start Date End Date Alexandro Rosario MD [address] [facility] [place] [address] PCP - General Internal Medicine 03/15/23 Ticket Worker Relationship Specialty Start Date End Date Alexandro Rosario MD [address] [facility] [place] [address] PCP - General Internal Medicine 03/15/23 Ticket Worker Relationship Specialty Start Date End Date Alexandro Rosario MD [address] [facility] [place] [address] PCP - General Internal Medicine 03/15/23 Ticket Worker Relationship Specialty Start Date End Date Alexandro Rosario MD [address] [facility] [place] [id number] PCP - General Internal Medicine 03/15/23 Ticket Worker Relationship Specialty Start Date End Date Alexandro Rosario MD [address] [facility] [place] [address] PCP - General Internal Medicine 03/15/23 Ticket Worker Relationship Specialty Start Date End Date Alexandro Rosario MD [address] [facility] [place] [address] PCP - General Internal Medicine 03/15/23 Ticket Worker Relationship Specialty Start Date End Date Alexandro Rosario MD [address] [facility], [id number] PCP - General Internal Medicine 03/15/23 Ticket Worker Relationship Specialty Start Date End Date Alexandro Rosario MD [address] [facility] [place] [address] PCP - General Internal Medicine 03/15/23 Ticket Worker Relationship Specialty Start Date End Date Alexandro Rosario MD [address] [facility] [place] [address] PCP - General Internal Medicine 03/15/23 Team Status: Inactive Member Role Status Dates Alexandro Rosario DO Primary Care Provide r, Attending Provider Active Start: October 05, 2024 End: October 05, 2024 Ticket Worker Relationship Specialty Start Date End Date Alexandro Rosario MD [address] [facility] [place] [address] PCP - General Internal Medicine 03/15/23 Team Status: Inactive Member Role Status Dates Alexandro Rosario DO Primary Care Provide r, Attending Provider Active Start: October 18, 2024 End: October 18, 2024 Team Status: Inactive Member Role Status Dates Alexandro Rosario DO Primary Care Provide r, Attending Provider Active Start: November 06, 2024 End: November 06, 2024 Team Status: Inactive Member Role Status Dates Alexandro Rosario DO Primary Care Provider Active Start: November 06, 2024 End: November 06, 2024 Alexandro Rosario DO Attending Provider Active Sta rt: November 06, 2024 End: November 06, 2024 Team Status: Inactive Member Role Status Dates Alexandro Rosario DO Primary Care Provider Active Start: January 19, 2025 End: January 19, 2025 Lauren Ramos MD Attending Provider Active St art: January 19, 2025 End: January 19, 2025 Ticket Worker Relationship Specialty Start Date End Date Alexandro Rosario DO PCP - General Internal Medicine 03/15/23 Ticket Worker Relationship Specialty Start Date End Date Alexandro Rosario DO PCP - General Internal Medicine 03/15/23 Ticket Worker Relationship Specialty Start Date End Date Alexandro Rosario DO PCP - General Internal Medicine 03/15/23 Team Status: Inactive Member Role Status Dates Alexandro Rosario DO Primary Care Provider Active Start: February 12, 2025 End: February 12, 2025 Alexandro Rosario DO Attending Provider Active Sta rt: February 12, 2025 End: February 12, 2025 REASON FOR VISIT (unrecogniz ed section and content) Specialty Diagnoses / Procedures Referred By Contnakita t Referred To Contact Physical Therapy Diagnoses Aftercare following right knee joint replacement surgery Presence of right artificial knee joint Procedures [place] OFFICE/OUTPATIENT NEW HIGH MDM 60 MINUTES Cheko Ceja DO [address] [place] [address] Alma Dawsno, PT [address] [place] [address] Referral ID Status Reason Start Date Expiration Date Visits Requested Visits Authorized [id number] Authorized Consult and Treat 07/20/2023 01/16/2024 30 30 Reason Comments Suspicious Skin Lesion Reason Comments Follow-up FOR RECORDS PERTAINING TO PATIENTS WHO ARE OR HAVE BEEN ENROLLED IN A CHEMICAL DEPENDENCY/SUBSTANCEABUSE PROGRAM, SOME INFORMATION MAY BE OMITTED. This clinical summary was aggregated from multiple sources. Caution should be exercised in using it in the provision of clinical care. This summary normalizes information from multiple sources, and as a consequence, information in this document may materially change the coding, format and clinical context of patient data. In addition, data may be omitted in some cases. CLINICAL DECISIONS SHOULD BE BASED ON THE PRIMARY CLINICAL RECORDS. [employer] [facility]. provides no warranty or guarantee of the accuracy or completeness of information in this document.
== END 2025-02-14 10:50 | disposition home or self-care (01) ==
LOC: US 10:49
PROVIDERS: PCP Internal Medicine; Visit Provider Internal Medicine
DX: N17.9 Acute kidney failure, unspecified (principal)
CPT/HCPCS: 76775

== ENCOUNTER 2025-04-03 10:42 | Outpatient (OUT) | payer MEDICARE, OTHER, SELFPAY ==
--- OUTSIDE RECORDS SUMMARY | 2025-03-08 09:06 | XMS_ITS ---
Author Name Auto Generated Organization OHIP Care Team Providers Care Community Outreach Specialist Name Role Phone LEORA BROWN Attending Unavailable JERAMY BAXTER Attending Unavailable LEORA BROWN Attending Unavailable JERAMY BAXTER Attending Unavailable NICOLE CEJA Attending Unavailable BROWN, NICOLE A Referring Unavailable LEORA BROWN Referring Unavailable LEORA BROWN Referring Unavailable Marissa Marley Attending Unavailable Marissa Marley Admitting Unavailable Alexandro Mendez Primary Care Unavailable PROBLEMS DATE TYPE CONDITION / CODE ATTENDING STATUS NATE RCE 03/08/2025 Unknown Varicose veins o f bilateral lower extremities with pain / I83.813(ICD-10) Marissa Marley [facility] 03/08/2025 Unknown Asymptomatic diana icose veins of bilateral lower extremities / I83.93(ICD-10) Marissa Marley [facility] 03/08/2025 Unknown Pain in right lo wer leg / M79.661(ICD-10) Marissa Marley [facility] 03/08/2025 Unknown Other specified soft tissue disorders / M79.89(ICD-10) Marissa Marley [facility] 03/08/2025 Unknown Venous insuffici ency (chronic) (peripheral) / I87.2(ICD-10) Marissa Marley [facility] PROCEDURES No Procedure Records Found RESULTS US VENOUS DUPLEX LE BI Observed: 025 8:45 AM Status: COMPLETED Source: [facility] [place] [address] Ultrasound Report Signed Patient: Roselia Miles MR#: [id number] : 1940 Acct:[id number] Age/Sex: 84 / F ADM Date: 03/08/25 Loc: Room: Type: [facility] Attending Dr: Marissa Angeles RESOURCE PROTECTION SPECIALIST-C Ordering Provider: Marissa Angeles APRN Date of Service: 03/08/25 US/US venous duplex LE BI: I83.813 - Varicose veins of bilateral lower extremities w... Copies to: Marissa Angeles APRN BILATERAL LOWER EXTREMITY VENOUS DUPLEX INDICATION: Symptomatic varicose veins with pain and swelling. PROCEDURE: Color-flow duplex scanning is used to interrogate the deep venous system of the right and left lower extremities. The common femoral vein, femoral vein and popliteal vein show good compressibility with normal proximal and distal augmentation. The calf veins are compressible. US/US venous duplex LE BI IMPRESSION: NO EVIDENCE FOR DEEP VEIN THROMBOSIS OR PROXIMAL SUPERFICIAL THROMBOPHLEBITIS IN THE RIGHT OR LEFT LOWER EXTREMITY. Severe reflux was identified in the greater saphenous vein, bilaterally. In addition severe reflux was identified and lesser saphenous vein bilaterally. The greater saphenous vein was patent from the groin to the ankle, bilaterally. Size was significantly enlarged, bilaterally. The lesser saphenous vein was also massively enlarged, bilaterally. Impression dictated by: Atif Gaming MD,FACS,FSVS 03/09/2025 8:45 AM [facility]ation [facility] Tech: Carmina Benitez Transcribed By: [facility] 03/09/25844 Dictated By: Atif Gaming MD 03/09/25844 Signed By: <Electronically signed by Atif Gaming MD in OV> 03/09/25844 DEXA BONE DENSITY Observed: 07/19/2024 11:02 AM Status: F Source: [facility] Examination: DEXA BONE DENSI TY Clinical History: screen Technique: Bone density study [...] risk. ELECTRONICALLY SIGNED BY: Santos Pedraza M.D. BI MAMMOGRAM SCREENING TOMOSYNTHESIS BILATERAL Observed: 07/19/2024 11:02 AM Status: F Source: [facility] Order Comment: U/S and spot compression if indicated This is a summary report. Th e complete report is available in the patient's [...] IS VERY IMPORTANT TO YOUR HEALTH. THE [place] GUIDELINES RECOMMEND THAT WOMEN 40 [...] VIEWS. ELECTRONICALLY SIGNED BY: Clark Mckinnon DO ALLERGIES DATE TYPE / CODE NAME / CODE REACTION SEVERITY SOURCE 02/21/2025 Drug Allergy/704806071 (SNOMED CT) prednisone/[id number](RXNORM) Rash Unknown [facility] ENCOUNTERS ADMIT/DISCHARGE ACCOUNT NUMBER ADMITTING ENCOUNTER CLASS LOCATION SOURCE 03/08/2025/03/08/20 [id number] [facility] 01/30/2025/01/31/20 25 [id number] Ambulatory Building:[facility] 01/30/2025/01/31/20 25 [id number] Ambulatory Building:[facility] 01/16/2025/01/17/20 [id number] Ambulatory Building:[facility] 10/09/2024/10/10/19 25 [id number] Ambulatory Building:[facility] 08/03/2024/08/03/19 25 [id number] Ambulatory Building:[facility] 07/19/2024/07/19/19 [id number] Ambulatory Building:[facility] 07/19/2024/07/19/19 [id number] Ambulatory Building:[facility] 04/17/2024/04/17/20 24 [id number] Ambulatory Building:[facility] PAYERS ENCOUNTER GUARANTOR PAYER SUBSCRIBER SOURCE 03/08/2025 Roselia [id number] [address]Tel: () Primary Insurance:MedicareP olicy Number: [id number] e Date:2025-02-22 Roselia CamposB: [id number] [address]Tel: () [facility] 03/08/2025 Secondary Insurance:[place] [employer] [place] Number: [id number] Date:2025-02-22 Roselia CamposB: [id number] [address]Tel: () [facility] 03/08/2025 Tertiary Insurance:Self PayPolicy Number: Effective Date:2025-02-26 [facility]2025 ROSELIA CAMPOSB: [id number] [address]Tel: () Primary Insurance:MEDICAREP olicy Number: [id number] e Date:[id number] Name:Medicare ROSELIA Briseida CAMPOSB: [id number] [place] [id number] [facility] EPIC 01/30/2025 Secondary Insurance:[place] [place] Number: [id number] Date:2017-08-05 ROSELIA CAMPOSB: [id number] [place] [id number] [facility] EP[facility] 01/30/2025 ROSELIA CAMPOSB: [place] [address]Tel: (HP) Primary Insurance:MEDICAREP olicy Number: [id number] e Date:8300-36-56Vets Name:Medicare ROSELIA CAMPOSB: [id number] [place] [id number] [facility] EPIC 01/30/2025 Secondary Insurance:[employer] [place] Number: [id number] Date:2017-08-05 ROSELIA CAMPOSB: [id number] [place] [id number] [facility] 01/16/2025 ROSELIA CAMPOSB: [place] [address]Tel: (HP) Primary Insurance:MEDICAREP olicy Number: [id number] e Date:6046-11-24Ejfk Name:Medicare ROSELIA CAMPOSB: [id number] [place] [phone] [facility] EPIC 01/16/2025 Secondary Insurance:[place] [place] Number: [id number] Date:2017-08-05 ROSELIA CAMPOSB: [id number] [place] [phone] [facility] 10/09/2024 ROSELIA CAMPOSB: [id number] [place] [id number]: (HP) Primary Insurance:MEDICAREP olicy Number: [id number] e Date:1133-58-79Dcou Name:Medicare ROSELIA CAMPOSB: [id number] [place] [address] [place] [address] [facility] 10/09/2024 Secondary Insurance:[place] [place] Number: [id number] Date:2017-08-05 ROSELIA CAMPOSB: [id number] [place] [address] [place] [address] [facility] 08/03/2024 ROSELIA CAMPOSB: [place] [address]Tel: (HP) Primary Insurance:MEDICAREP olicy Number: [id number] e Date:2979-29-71Krju Name:Medicare ROSELIA CAMPOSB: [id number] [address] [facility] 08/03/2024 Secondary Insurance:[place] [place] Number: [id number] Date:2022-12-01 ROSELIA CAMPOSB: [id number] [place] [address] [place] [address] [facility] 07/19/2024 ROSELIA CAMPOSB: [place] [address]Tel: (HP) Primary Insurance:MEDICAREP olicy Number: [id number] e Date:9803-93-36Pcri Name:Medicare ROSELIA MILESDOB: [id number] [address] [facility] 07/19/2024 Secondary Insurance:[employer] [place] Number: [id number] Date:2022-12-01 ROSELIA MILESDOB: [id number] [place] [id number] [facility] EPIC 07/19/2024 ROSELIA MILESDOB: [place] [id number]: (HP) Primary Insurance:MEDICAREP olicy Number: [id number] e Date:6868-57-85Nzpc Name:Medicare ROSELIA CAMPOSB: [id number] [place] [phone] [facility] EPIC 07/19/2024 Secondary Insurance:[place] [place] Number: [id number] Date:2022-12-01 ROSELIA CAMPOSB: [id number] [place] [phone] [facility] 04/17/2024 ROSELIA CAMPOSB: [id number] [address]Tel: (HP) Primary Insurance:MEDICAREP olicy Number: [id number] e Date:8437-82-34Wdrb Name:Medicare ROSELIA CAMPOSB: [id number] [place] [phone] [facility] EPIC 04/17/2024 Secondary Insurance:[place] [place] Number: [id number] Date:2022-12-01 ROSELIA CAMPOSB: [id number] [place] [phone] [facility] EPIC
[2025-04-03 11:12] LABS: Microalbum Creatinine Ratio Ur 19.2 mg/g (0.0-29.9)
[2025-04-03 11:42] LABS: Anion Gap 13.1; Blood Urea Nitrogen 20.0 mg/dL (7.0-18.0); Calcium 9.0 mg/dL (8.5-10.1); Carbon Dioxide 27.5 mmol/L (21.0-32.0); Chloride 105 mmol/L (98-107); Estimated GFR (African America 60 (>=60 mL/min/1.73m^2); Estimated GFR (Non-African Ame 49 (>=60 mL/min/1.73m^2); Glucose 88 mg/dL (74-106); Potassium 4.6 mmol/L (3.5-5.1); Sodium 141 mmol/L (136-145)
== END 2025-04-03 10:43 | disposition home or self-care (01) ==
LOC: LAB 10:43
PROVIDERS: PCP Internal Medicine; Visit Provider Internal Medicine
DX: N18.31 Chronic kidney disease, stage 3a (principal)
CPT/HCPCS: 36415; 80048; 82043; 82570